=== PATIENT | male | born 1950 | race Caucasian/White ===

== ENCOUNTER 2019-08-25 14:18 | Emergency (ER) | payer MEDICARE, SELFPAY ==
[2019-08-25 14:19] VITALS: BP 141/110; PULSE 89; RESP 17; TEMP 37; O2SAT 94; BMI 18.2
--- NOTE | 2019-08-25 14:34 | CTR_ITS ---
PROCEDURE INFORMATION: Exam: CT Head Without Contrast Exam date and time: 08/25/2019 2:36 PM Age: 69 years old Clinical indication: Other: Possible seizure; Additional info: Possible seizure 1 day ago. TECHNIQUE: Imaging protocol: Computed tomography of the head without contrast. Total DLP: 841.59 mGy-cm Radiation optimization: All CT scans at this facility use at least one of these dose optimization techniques: automated exposure control; mA and/or kV adjustment per patient size (includes targeted exams where dose is matched to clinical indication); or iterative reconstruction. COMPARISON: CT head wo con* [id number] 02/27/2019 8:59 PM FINDINGS: Brain: Stable one or more chronic right lacunar basal ganglia infarcts. Stable chronic right frontal lobe infarct with encephalomalacia. Mild to moderate cerebral atrophy and ischemic leukoencephalopathy. Stable one or more chronic right lacunar basal ganglia infarcts. Ventricles: Normal. No ventriculomegaly. Bones/joints: Unremarkable. No acute fracture. Sinuses: Visualized sinuses are unremarkable. No fluid levels. Mastoid air cells: Visualized mastoid air cells are well aerated. Soft tissues: Unremarkable. Vasculature: Severe calcified intracranial atherosclerotic vessel disease. CT/CT head wo con* [id number] IMPRESSION: No acute intracranial findings. Radiation Dose CTDIVOL = (mGy): DLP = 841.59 (mGy-cm)
--- NOTE | 2019-08-25 14:34 | XRR_ITS ---
PROCEDURE INFORMATION: Exam: XR Chest, 1 View Exam date and time: 08/25/2019 2:36 PM Age: 69 years old Clinical indication: Shortness of breath; Prior surgery; Surgery date: 6+ months; Additional info: Cp TECHNIQUE: Imaging protocol: XR of the chest Views: 1 view. COMPARISON: CR Chest 1 [place] [id number] 02/27/2019 9:00 PM FINDINGS: Tubes, catheters and devices: Stable left pacemaker. Lungs: Stable COPD . Stable right basilar atelectasis and/or infiltrate and/or effusion and/or pleural scarring. Pleural space: Unremarkable. No pleural effusion. No pneumothorax. Heart/Mediastinum: Stable to moderate hiatal hernia. Bones/joints: Stable one or more healed right rib fractures. XR/XR chest 1V portable [id number] IMPRESSION: 1. Stable to moderate hiatal hernia. 2. Stable COPD .
--- NOTE | 2019-08-25 14:35 | ECG_ITS ---
Measurements Intervals [place] Rate: 83 P: 79 AR: 181 QRS: -83 QRSD: 161 T: 72 QT: 442 QTc: 521 ELECTRONIC VENTRICULAR PACEMAKER-a sensed V paced rhythm ABNORMAL RHYTHM ECG Compared to ECG 02/27/2019 21:18:59 No significant changes Electronically Signed On 08-25-2019 16:25:14 CHAIR INSPECTOR AND LEVELER by Torri Mcnair M.D. [id number]
--- NOTE | 2019-08-25 14:50 | ED_ITS ---
Entered by Christy Arceo, acting as scribe for Esha Heath MD Aug 25, 2019 14:18 HPI - Seizure General: Chief Complaint: Seizure Stated Complaint: WEAKNESS, THINKS HAD SEIZURE LAST NIGHT Time Seen by Provider: 08/25/19 14:34 Source: patient and family Mode of arrival: ambulatory Limitations: no limitations History of Present Illness: HPI Narrative: 69 yo male presents to ED with complaints of a possible seizure. The patient said he thinks he had a seizure last night and has no strength. He said he was in his recliner and he began shaking and jerking. He said he doesn't feel too bad. He said he has a headache when he coughs and is weak. He said the last time he had a seizure was years ago. His PCP is Dr Park. complaint: possible seizure Onset (ago): day(s) (last night) Description of Episode: tonic-clonic movement Witnessed: No Trauma: No Seizure History: No (1 years ago) Place: Home Possible Precipitating Event: none Associated symptoms: Reports weakness and other (headache); Deny chest pain, chills or fever(s) Treatments prior to arrival: none Review of Systems Const: Denies: fever, chills, body aches or change in appetite Eyes: Denies: blurry vision or eye discomfort ENMT: Denies: throat pain or dental pain Card: Denies: chest pain Resp: Denies: shortness of breath GI: Denies: abdominal pain, nausea, vomiting or diarrhea : Denies: painful urination Musc: Denies: neck pain or back pain Skin/Breast: Denies: rash Psych: Denies: depression Rubin/Lymph: Denies: easy bruising All/Imm: Denies: hives PFSH ED PFSH: Statuses (acute, chronic, etc) shown below reflect problem list status as previously entered and may not be historically accurate Social History Smoking and tobacco status: current every day smoker Physical Exam Const: COMMON NORMALS: no apparent distress, oriented x3 and healthy appearing HENMT: COMMON NORMALS: normocephalic and head/scalp atraumatic HEAD & SCALP: normocephalic and atraumatic Eye: COMMON NORMALS: PERRL and EOMs intact bilaterally PUPIL: Yes PERRL Neck/C-Spine: COMMON NORMALS: full ROM and supple Chest: COMMONS NORMALS: inspection of chest normal and palpation of chest normal Resp: COMMON NORMALS: normal respiratory effort, no retractions, no use of accessory muscles and clear to auscultation bilaterally AUSCULTATION: clear to auscultation bilaterally Cardio: COMMON NORMALS: regular rate, regular rhythm and no murmurs RATE: regular rate RHYTHM: regular rhythm GI: COMMON NORMALS: normal to inspection, nondistended, normoactive bowel sounds, soft to palpation, non-tender and no masses PALPATION: Yes soft Extremity: COMMON NORMALS: normal to inspection and full ROM Neuro: COMMON NORMALS: oriented x3, moves all extremities and no focal motor deficits Psych: COMMON NORMALS: mental status grossly normal, thought process normal and cooperative THOUGHT PROCESS: normal thought process Skin: COMMON NORMALS: no rashes or lesions noted and no wounds GENERAL SKIN EXAM: no rashes or lesions noted Course Vital Signs: Vital signs: Vital Signs Temperature 98.6 F 08/25/19 14:19 Pulse Rate 75 08/25/19 16:03 Respiratory Rate 16 08/25/19 16:03 Blood Pressure 129/79 08/25/19 16:03 Pulse Oximetry 98 08/25/19 16:03 MDM - Seizure MDM Narrative: Medical decision making narrative: Patient presents here with a possible seizure. Patient is well-appearing here and has no postictal symptoms or headache. Patient has no signs of meningitis. Head CT and lab work are all normal. Patient is stable for discharge and is to follow-up with Dr. Park this week. He is return if worsening. Lab Data: Labs: Lab Results 08/25/19 08/25/19 08/25/19 Range/Units 14:50 14:50 14:50 WBC 6.8 (4.0-10.0) 10^3/ uL RBC 5.27 (4.1-5.3) 10^6/u L Hgb 13.5 (11.7-16.6) g/dL Hct 44.0 (42.0-52.0) % MCV 83.5 (80-94) fL MCH 25.6 L (28.0-34.0) pg MCHC 30.7 (30.0-36.0) g/dL RDW 16.3 H (12.1-15.1) % Plt Count 202 (130-400) 10^3/c mm MPV 10.6 H (7.4-10.4) fL Neut % (Auto) 68.2 % Lymph % (Auto) 17.1 % [place] % (Auto) 12.4 % Eos % (Auto) 1.0 % Baso % (Auto) 0.7 % Neut # (Auto) 4.6 (1.8-7.7) 10^3/u L Lymph # (Auto) 1.2 (0.8-4.8) 10^3/u L [place] # (Auto) 0.8 (0.2-0.9) 10^3/u L Eos # (Auto) 0.1 (0.0-0.8) 10^3/u L Baso # (Auto) 0.1 (0.0-0.1) 10^3/u L Nucleated RBC % (a uto) 0 % Nucleated RBCs # 0.0 /100WBC PT 13.60 H (10.5-13.3) SECO NDS INR 1.00 (0.8-1.2) Sodium 131 L (136-145) mmol/L Potassium 4.7 (3.5-5.1) mmol/L Chloride 93 L (98-107) mmol/L Carbon Dioxide 26 (22-29) mmol/L Anion Gap 16.7 (5-19) BUN 12 (8-23) mg/dL Creatinine 1.0 (0.7-1.2) mg/dL GFR Calculation 74.3 L (90-130) mL/min Glucose 98 (74-106) mg/dL Calcium 9.7 (8.5-10.5) mg/dL Magnesium 2.1 (1.7-2.3) mg/dL Total Bilirubin 0.5 (0.15-1.2) mg/dL AST 54 H (0-40) U/L ALT 20 (0-41) U/L Alkaline Phosphata se 100 (40-130) IU/L Total Protein 7.7 (6.6-8.7) g/dL Albumin 4.2 (3.5-5.2) g/dL Globulin 3.5 (1.3-4.6) g/dL Urine Color (Yellow) Urine Appearance (CLEAR) Urine pH (5-7) Ur Specific Gravit y (1.005-1.030) Urine Protein (Negative) Urine Glucose (UA) (Normal) Urine Ketones (Negative) Urine Occult Blood (Negative) Urine Nitrate (Negative) Urine Bilirubin (NEGATIVE) Urine Urobilinogen (Negative) mg/dL Ur Leukocyte Anu ase (Negative) 08/25/19 Range/Units 15:00 WBC (4.0-10.0) 10^3/ uL RBC (4.1-5.3) 10^6/u L Hgb (11.7-16.6) g/dL Hct (42.0-52.0) % MCV (80-94) fL MCH (28.0-34.0) pg MCHC (30.0-36.0) g/dL RDW (12.1-15.1) % Plt Count (130-400) 10^3/c mm MPV (7.4-10.4) fL Neut % (Auto) % Lymph % (Auto) % [place] % (Auto) % Eos % (Auto) % Baso % (Auto) % Neut # (Auto) (1.8-7.7) 10^3/u L Lymph # (Auto) (0.8-4.8) 10^3/u L [place] # (Auto) (0.2-0.9) 10^3/u L Eos # (Auto) (0.0-0.8) 10^3/u L Baso # (Auto) (0.0-0.1) 10^3/u L Nucleated RBC % (a uto) % Nucleated RBCs # /100WBC PT (10.5-13.3) SECO NDS INR (0.8-1.2) Sodium (136-145) mmol/L Potassium (3.5-5.1) mmol/L Chloride (98-107) mmol/L Carbon Dioxide (22-29) mmol/L Anion Gap (5-19) BUN (8-23) mg/dL Creatinine (0.7-1.2) mg/dL GFR Calculation (90-130) mL/min Glucose (74-106) mg/dL Calcium (8.5-10.5) mg/dL Magnesium (1.7-2.3) mg/dL Total Bilirubin (0.15-1.2) mg/dL AST (0-40) U/L ALT (0-41) U/L Alkaline Phosphata se (40-130) IU/L Total Protein (6.6-8.7) g/dL Albumin (3.5-5.2) g/dL Globulin (1.3-4.6) g/dL Urine Color Straw (Yellow) Urine Appearance Clear (CLEAR) Urine pH 5 (5-7) Ur Specific Gravit y 1.005 (1.005-1.030) Urine Protein Neg (Negative) Urine Glucose (UA) Norm (Normal) Urine Ketones Negative (Negative) Urine Occult Blood Neg (Negative) Urine Nitrate Negative (Negative) Urine Bilirubin Neg (NEGATIVE) Urine Urobilinogen Norm (Negative) mg/dL Ur Leukocyte Anu ase Negative (Negative) Imaging Data^: CT Head: Radiologist's impression: Patient: Rashid Esposito Unit #: [id number] : 1950 Age/Sex: 69 / M ADM Date: 0 08/25/19 Loc: ER Room/Bed: Attending Dr: Ordering Provider/Ordering MD: Esha Heath MD Date of Service: 08/25/19 Procedure(s): CT head wo con* [id number] Accession Number(s): [id number] Report Number: [id number] PROCEDURE INFORMATION: Exam: CT Head Without Contrast Exam date and time: 08/25/2019 2:36 PM Age: 69 years old Clinical indication: Other: Possible seizure; Additional info: Possible seizure 1 day ago. TECHNIQUE: Imaging protocol: Computed tomography of the head without contrast. Total DLP: 841.59 mGy-cm Radiation optimization: All CT scans at this facility use at least one of these dose optimization techniques: automated exposure control; mA and/or kV adjustment per patient size (includes targeted exams where dose is matched to clinical indication); or iterative reconstruction. COMPARISON: CT head wo con* [id number] 02/27/2019 8:59 PM FINDINGS: Brain: Stable one or more chronic right lacunar basal ganglia infarcts. Stable chronic right frontal lobe infarct with encephalomalacia. Mild to moderate cerebral atrophy and ischemic leukoencephalopathy. Stable one or more chronic right lacunar basal ganglia infarcts. Ventricles: Normal. No ventriculomegaly. Bones/joints: Unremarkable. No acute fracture. Sinuses: Visualized sinuses are unremarkable. No fluid levels. Mastoid air cells: Visualized mastoid air cells are well aerated. Soft tissues: Unremarkable. Vasculature: Severe calcified intracranial atherosclerotic vessel disease. CT/CT head wo con* [id number] IMPRESSION: No acute intracranial findings. EKG Data^: EKG 1: Attestation: I personally reviewed and interpreted this EKG as follows: EKG interpretation date: 08/25/19 EKG interpretation time: 14:44 Interpretation: paced hr [address] or t wave abnormalities Discharge Plan Discharge Patient Disposition: Home, Self-Care Clinical Impression: New onset seizure Condition: Stable Discharge Orders: Discharge Order (Routine); Ordered 08/25/19 Ordered By: Esha Heath Referrals: Manolo Park MD [Primary Care Provider] - 4-7 days Discharge Diet: Advance as tolerated Discharge Activity: Resume usual activity Patient Instructions: New-Onset Seizure in Adults (ED) Discharge Date/Time: 08/25/19 16:03 Coding Level of Care Code ED Breakfast Manager for Chg Fwd The documentation recorded by the Adis santos Valerie R, accurately reflects the service I personally performed and the decisions made by Ivana garza Korby, MD Aug 25, 2019 14:18
[2019-08-25 15:02] LABS: Basophils # 0.1 10^3/uL (0.0-0.1); Basophils % 0.7 %; Eosinophils # 0.1 10^3/uL (0.0-0.8); Hemoglobin 13.5 g/dL (11.7-16.6); Lymphocytes # 1.2 10^3/uL (0.8-4.8); Lymphocytes % 17.1 %; Mean Corpuscular HGB Conc 30.7 g/dL (30.0-36.0); Mean Corpuscular Hemoglobin 25.6 pg (28.0-34.0); Mean Corpuscular Volume 83.5 fL (80-94); Mean Platelet Volume 10.6 fL (7.4-10.4); Monocytes # 0.8 10^3/uL (0.2-0.9); Monocytes % 12.4 %; Neutrophils # 4.6 10^3/uL (1.8-7.7); Neutrophils % 68.2 %; Nucleated Red Blood Cells % 0 %; Platelet Count 202 10^3/cmm (130-400); Red Blood Count 5.27 10^6/uL (4.1-5.3); Red Cell Distribution Width 16.3 % (12.1-15.1); White Blood Count 6.8 10^3/uL (4.0-10.0)
[2019-08-25 15:20] LABS: Alanine Aminotransferase 20 U/L (0-41); Albumin Level 4.2 g/dL (3.5-5.2); Alkaline Phosphatase 100 IU/L (40-130); Anion Gap 16.7 (5-19); Blood Urea Nitrogen 12 mg/dL (8-23); Calcium 9.7 mg/dL (8.5-10.5); Carbon Dioxide 26 mmol/L (22-29); Chloride 93 mmol/L (98-107); Globulin 3.5 g/dL (1.3-4.6); Glomerular Filtration Rate 74.3 mL/min (90-130); Glucose 98 mg/dL (74-106); Magnesium 2.1 mg/dL (1.7-2.3); Potassium 4.7 mmol/L (3.5-5.1); Sodium 131 mmol/L (136-145); Total Bilirubin 0.5 mg/dL (0.15-1.2); Total Protein 7.7 g/dL (6.6-8.7)
[2019-08-25 15:22] LABS: Add Urine Microscopic? NO
--- NOTE | 2019-08-25 15:29 | PC.NURSE ---
Patient to CT via stretcher
[2019-08-25 15:31] LABS: Bilirubin Urine Neg (NEGATIVE); Blood Urine Neg (Negative); Glucose Urine UA Norm (Normal); Ketones Urine Negative (Negative); Leukocyte Esterase Urine Negative (Negative); Nitrate Urine Negative (Negative); Protein Urine Neg (Negative); Specific Gravity, Urine 1.005 (1.005-1.030); Urine Appearance Clear (CLEAR); Urine Color Straw (Yellow); Urobilinogen Urine Norm (Negative); pH Urine 5 (5-7)
[2019-08-25 15:36] LABS: Aspartate Amino Transferase 54 U/L (0-40)
--- NOTE | 2019-08-25 15:36 | PC.NURSE ---
Patient back to room from CT
[2019-08-25 15:42] VITALS: BP 129/79; PULSE 88; O2SAT 98
[2019-08-25 16:03] VITALS: BP 129/79; PULSE 75; RESP 16; O2SAT 98
== END 2019-08-25 16:03 | disposition home or self-care (01) ==
PROVIDERS: Emergency Provider Emergency Medicine; Family Provider Family Medicine; PCP Family Medicine
DX: G40.89 Other seizures (principal); F17.210 Nicotine dependence, cigarettes, uncomplicated
CPT/HCPCS: 70450; 71045; 80053; 81003; 83735; 85025; 85610; 93005; 99283; 99284

== ENCOUNTER 2020-01-24 09:35 | Emergency (ER) | payer MEDICARE, SELFPAY ==
[2020-01-24 09:44] VITALS: BP 91/70; PULSE 96; RESP 13; TEMP 36.7; O2SAT 92
--- NOTE | 2020-01-24 09:51 | ED_ITS ---
HPI - Weakness General: Chief complaint: Weakness Stated complaint: weakness, multiple falls Time Seen by Provider: 01/24/20 09:35 History of Present Illness: HPI Narrative: Patient arrives via EMS. He has had several falls in the last few days. Patient has multiple skin tears of varying ages to both upper extremities. Frozen patient called EMS this morning when they came to check on him and found that he was not able to ambulate under his own power whatsoever. Review of Systems General: Reports: 10 or more systems reviewed and unremarkable except in HPI and below PFSH ED PFSH: Social History Smoking and tobacco status: current every day smoker Physical Exam Const: COMMON NORMALS: no acute distress, healthy appearing and well nourished GENERAL APPEARANCE: cooperative and well developed HENMT: COMMON NORMALS: normocephalic and atraumatic HEAD & SCALP: normal to inspection, normocephalic and atraumatic Eye: GENERAL EYE: appearance normal, both eyes and all related structures Neck/C-Spine: COMMON NORMALS: full ROM, no lymphadenopathy and no meningeal signs GENERAL: Yes normal visual inspection CERVICAL SPINE: Yes cervical ROM normal and Yes normal cervical lordosis Chest: COMMONS NORMALS: normal inspection of the chest and normal palpation of entire chest wall Resp: COMMON NORMALS: normal respiratory effort, clear to auscultation bilaterally and percussion normal AUSCULTATION: clear to auscultation bilaterally PERCUSSION: percussion normal Cardio: COMMON NORMALS: regular rate, regular rhythm, S1 normal heart sound present and S2 normal heart sound present JUGULAR VENOUS DISTENTION: no JVD PALPATION: normal PMI RATE: regular rate RHYTHM: regular rhythm HEART SOUNDS: S1 normal heart sound present and S2 normal heart sound present GI: COMMON NORMALS: Soft to palpation and No hepatosplenomegaly present INSPECTION: Yes normal to inspection PALPATION: Yes Soft to palpation and Yes No hepatosplenomegaly present PERCUSSION: normal to percussion : COMMON NORMALS: Yes no CVA tenderness BLADDER/KIDNEY EXAM: Yes no CVA tenderness Back/Pelvis: COMMON NORMALS: no CVA tenderness, thoracic and lumbar spine normal to inspection and thoraco-lumbar ROM normal Extremity: COMMON NORMALS: normal to inspection, full ROM and capillary refill normal Neuro: MENINGEAL SIGNS: Yes no meningeal signs Skin: COMMON NORMALS: no rashes or lesions noted, no wounds and turgor normal GENERAL SKIN EXAM: no rashes or lesions noted, elasticity normal and turgor normal LESIONS: no lesions RASHES: no rashes TRAUMA: no lacerations or abrasions HAIR: normal NAILS: normal Course Vital Signs: Vital signs: Vital Signs Temperature 98.0 F 01/24/20 09:44 Pulse Rate 96 01/24/20 11:09 Respiratory Rate 16 01/24/20 11:09 Blood Pressure 102/66 01/24/20 11:09 Pulse Oximetry 93 01/24/20 10:01 MDM - Weakness MDM Narrative: Medical decision making narrative: Patient is awake and alert and in no acute distress. He states that for the past 5 or 6 months when he tr ies to ambulate his legs feel weak. Patient does admit to drinking one sixpack of beer and 1 pint of liquor a day. Patient's leg weakness could very well be linked to cerebellar atrophy. Patient has no desire to be admitted to the hospital for these symptoms. He will be discharge from emergency department and instructed to follow-up with his PCP. Lab Data: Labs: Lab Results 01/24/20 01/24/20 01/24/20 Range/Units 09:10 09:10 09:10 WBC 9.9 (4.0-10.0) 10^3/ uL RBC 4.91 (4.1-5.3) 10^6/u L Hgb 12.2 (11.7-16.6) g/dL Hct 40.4 L (42.0-52.0) % MCV 82.3 (80-94) fL MCH 24.8 L (28.0-34.0) pg MCHC 30.2 (30.0-36.0) g/dL RDW 16.1 H (12.1-15.1) % Plt Count 173 (130-400) 10^3/c mm MPV 11.9 H (7.4-10.4) fL Neut % (Auto) 83.0 % Lymph % (Auto) 5.8 % [place] % (Auto) 10.3 % Eos % (Auto) 0.2 % Baso % (Auto) 0.2 % Neut # (Auto) 8.2 H (1.8-7.7) 10^3/u L Lymph # (Auto) 0.6 L (0.8-4.8) 10^3/u L [place] # (Auto) 1.0 H (0.2-0.9) 10^3/u L Eos # (Auto) 0.0 (0.0-0.8) 10^3/u L Baso # (Auto) 0.0 (0.0-0.1) 10^3/u L Nucleated RBC % (a uto) 0 % Nucleated RBCs # 0.0 /100WBC Sodium 127 L (136-145) mmol/L Potassium 5.0 (3.5-5.1) mmol/L Chloride 88 L (98-107) mmol/L Carbon Dioxide 22 (22-29) mmol/L Anion Gap 22.0 H (5-19) BUN 25 H (8-23) mg/dL Creatinine 1.2 (0.7-1.2) mg/dL GFR Calculation 60.2 L (90-130) mL/min Glucose 74 (65-115) mg/dL Calculated Osmolal ity 259 L (285-295) mOsm/k g Lactate (0.5-2.2) mmol/L Calcium 9.4 (8.5-10.5) mg/dL Phosphorus 3.2 (2.5-4.5) mg/dL Magnesium 2.0 (1.7-2.3) mg/dL Total Bilirubin 1.1 (0.15-1.2) mg/dL AST 79 H (0-40) U/L ALT 31 (0-41) U/L Alkaline Phosphata se 99 (40-130) IU/L Ammonia (16-60) umol/L Troponin T Baselin e 36 H (0-15) ng/L Troponin T 120 Min [place] (0-15) ng/L Delta Troponin T (0-10) ABS# NT-Pro-B Natriuret Pep 7887 H (0-125) pg/mL Total Protein 6.5 L (6.6-8.7) g/dL Albumin 3.8 (3.5-5.2) g/dL Globulin 2.7 (1.3-4.6) g/dL Lipase 8 L (13-60) U/L Urine Color (Yellow) Urine Appearance (CLEAR) Urine pH (5-7) Ur Specific Gravit y (1.005-1.030) Urine Protein (Negative) Urine Glucose (UA) (Normal) Urine Ketones (Negative) Urine Blood (Negative) Urine Nitrate (Negative) Urine Bilirubin (NEGATIVE) Urine Urobilinogen (Negative) mg/dL Ur Leukocyte Anu ase (Negative) Ethyl Alcohol < 10 (0-10) mg/dL 01/24/20 01/24/20 01/24/20 Range/Units 11:07 11:07 11:11 WBC (4.0-10.0) 10^3/ uL RBC (4.1-5.3) 10^6/u L Hgb (11.7-16.6) g/dL Hct (42.0-52.0) % MCV (80-94) fL MCH (28.0-34.0) pg MCHC (30.0-36.0) g/dL RDW (12.1-15.1) % Plt Count (130-400) 10^3/c mm MPV (7.4-10.4) fL Neut % (Auto) % Lymph % (Auto) % [place] % (Auto) % Eos % (Auto) % Baso % (Auto) % Neut # (Auto) (1.8-7.7) 10^3/u L Lymph # (Auto) (0.8-4.8) 10^3/u L [place] # (Auto) (0.2-0.9) 10^3/u L Eos # (Auto) (0.0-0.8) 10^3/u L Baso # (Auto) (0.0-0.1) 10^3/u L Nucleated RBC % (a uto) % Nucleated RBCs # /100WBC Sodium (136-145) mmol/L Potassium (3.5-5.1) mmol/L Chloride (98-107) mmol/L Carbon Dioxide (22-29) mmol/L Anion Gap (5-19) BUN (8-23) mg/dL Creatinine (0.7-1.2) mg/dL GFR Calculation (90-130) mL/min Glucose (65-115) mg/dL Calculated Osmolal ity (285-295) mOsm/k g Lactate 1.2 (0.5-2.2) mmol/L Calcium (8.5-10.5) mg/dL Phosphorus (2.5-4.5) mg/dL Magnesium (1.7-2.3) mg/dL Total Bilirubin (0.15-1.2) mg/dL AST (0-40) U/L ALT (0-41) U/L Alkaline Phosphata se (40-130) IU/L Ammonia 14 L (16-60) umol/L Troponin T Baselin e (0-15) ng/L Troponin T 120 Min [place] 36.16 H (0-15) ng/L Delta Troponin T 0.16 (0-10) ABS# NT-Pro-B Natriuret Pep (0-125) pg/mL Total Protein (6.6-8.7) g/dL Albumin (3.5-5.2) g/dL Globulin (1.3-4.6) g/dL Lipase (13-60) U/L Urine Color (Yellow) Urine Appearance (CLEAR) Urine pH (5-7) Ur Specific Gravit y (1.005-1.030) Urine Protein (Negative) Urine Glucose (UA) (Normal) Urine Ketones (Negative) Urine Blood (Negative) Urine Nitrate (Negative) Urine Bilirubin (NEGATIVE) Urine Urobilinogen (Negative) mg/dL Ur Leukocyte Anu ase (Negative) Ethyl Alcohol (0-10) mg/dL 01/24/20 Range/Units 12:24 WBC (4.0-10.0) 10^3/ uL RBC (4.1-5.3) 10^6/u L Hgb (11.7-16.6) g/dL Hct (42.0-52.0) % MCV (80-94) fL MCH (28.0-34.0) pg MCHC (30.0-36.0) g/dL RDW (12.1-15.1) % Plt Count (130-400) 10^3/c mm MPV (7.4-10.4) fL Neut % (Auto) % Lymph % (Auto) % [place] % (Auto) % Eos % (Auto) % Baso % (Auto) % Neut # (Auto) (1.8-7.7) 10^3/u L Lymph # (Auto) (0.8-4.8) 10^3/u L [place] # (Auto) (0.2-0.9) 10^3/u L Eos # (Auto) (0.0-0.8) 10^3/u L Baso # (Auto) (0.0-0.1) 10^3/u L Nucleated RBC % (a uto) % Nucleated RBCs # /100WBC Sodium (136-145) mmol/L Potassium (3.5-5.1) mmol/L Chloride (98-107) mmol/L Carbon Dioxide (22-29) mmol/L Anion Gap (5-19) BUN (8-23) mg/dL Creatinine (0.7-1.2) mg/dL GFR Calculation (90-130) mL/min Glucose (65-115) mg/dL Calculated Osmolal ity (285-295) mOsm/k g Lactate (0.5-2.2) mmol/L Calcium (8.5-10.5) mg/dL Phosphorus (2.5-4.5) mg/dL Magnesium (1.7-2.3) mg/dL Total Bilirubin (0.15-1.2) mg/dL AST (0-40) U/L ALT (0-41) U/L Alkaline Phosphata se (40-130) IU/L Ammonia (16-60) umol/L Troponin T Baselin e (0-15) ng/L Troponin T 120 Min [place] (0-15) ng/L Delta Troponin T (0-10) ABS# NT-Pro-B Natriuret Pep (0-125) pg/mL Total Protein (6.6-8.7) g/dL Albumin (3.5-5.2) g/dL Globulin (1.3-4.6) g/dL Lipase (13-60) U/L Urine Color Yellow (Yellow) Urine Appearance Clear (CLEAR) Urine pH 5 (5-7) Ur Specific Gravit y 1.020 (1.005-1.030) Urine Protein Neg (Negative) Urine Glucose (UA) Norm (Normal) Urine Ketones 1+ H (Negative) Urine Blood Neg (Negative) Urine Nitrate Negative (Negative) Urine Bilirubin 1+ H (NEGATIVE) Urine Urobilinogen 4 H (Negative) mg/dL Ur Leukocyte Anu ase Negative (Negative) Ethyl Alcohol (0-10) mg/dL Discharge Plan Discharge Patient Disposition: Home, Self-Care Clinical Impression: Weakness generalized Condition: Stable Prescriptions: No Action No Known Home Medications RF: 0 Discharge Orders: Discharge Order (Routine); Ordered 01/24/20 Ordered By: Torrey Ferguson Referrals: Manolo Park MD [Primary Care Provider] - Coding Level of Care Code ED Human Development Professor for Chg Fwd Exam Comprehensive
[2020-01-24 10:01] VITALS: O2SAT 93
--- NOTE | 2020-01-24 10:45 | CT_ITS ---
WS: [id number] CT HEAD TECHNIQUE: Noncontrast CT of the head obtained from the skullbase to the vertex. CLINICAL INFORMATION: yoli bird COMPARISON: August 25, 2019 DLP: 1334.[address] scans at [facility] use at least one of these dose optimization techniques: automat ed exposure control; mA and/or kV adjustment per patient size (includes targeted exams where dose is matched to clinical indication); or iterative reconstruction. FINDINGS: No evidence of intracranial hemorrhage or mass effect. Ventricular system and basal cisterns are luque nt. Mild small vessel changes with moderate parenchymal volume loss. Chronic lacunar infarcts in the bilateral caudate and bilateral cerebellum. Low-attenuation change with chronic infarct in the right posterior frontal lobe. No extra-axial fluid collections. No evidence of mass or mass effect. Normal subramanian-white differentiati on. Paranasal sinuses and mastoid air cells are well aerated. .Normal visualized soft tissues. CT/CT head wo con* 39000 IMPRESSION: 1. No evidence of intracranial hemorrhage or mass effect. 2. Mild small vessel changes. Moderate parenchymal volume loss. 3. Chronic lacunar infarcts described above. 4. Chronic infarct in the right posterior frontal lobe unchanged. 5. No acute intracranial findings.
--- NOTE | 2020-01-24 10:45 | XRR_ITS ---
PROCEDURE INFORMATION: Exam: XR Chest, 1 View Exam date and time: 01/24/2020 11:35 AM Age: 69 years old Clinical indication: Prior surgery; Surgery date: 6+ months; Surgery type: Pacemaker; Patient HX: Was found unable to ambulate on own. Weakness TECHNIQUE: Imaging protocol: XR of the chest Views: 1 view. COMPARISON: CR (CHEST, ) 08/25/2019 2:44 PM FINDINGS: Lungs: No pneumonia or pulmonary edema. Pleural space: No pleural effusion or pneumothorax. Heart/Mediastinum: Moderate size hiatal hernia. The heart is not felt to be enlarged when allowing for large left epicardial fat pad. Vasculature: There is a left subclavian dual chamber pacemaker. Bones/joints: No acute osseous abnormality. XR/XR chest 1V portable [id number] IMPRESSION: No acute abnormality.
--- NOTE | 2020-01-24 10:48 | ECG_ITS ---
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 Measurements Intervals Alpha Rate: 100 P: 69 OR: 148 QRS: -74 QRSD: 164 T: 69 QT: 405 QTc: 522 Interpretive Statements A sense V paced rhythm Compared to ECG 08/25/2019 14:44:29 No significant changes Electronically Signed On 01-24-2020 20:48:09 CDT by Mckenna Bal M.D. [id number] f
[2020-01-24 10:55] LABS: Basophils % 0.2 %; Eosinophils % 0.2 %; Hematocrit 40.4 % (42.0-52.0); Hemoglobin 12.2 g/dL (11.7-16.6); Lymphocytes # 0.6 10^3/uL (0.8-4.8); Lymphocytes % 5.8 %; Mean Corpuscular HGB Conc 30.2 g/dL (30.0-36.0); Mean Corpuscular Hemoglobin 24.8 pg (28.0-34.0); Mean Corpuscular Volume 82.3 fL (80-94); Mean Platelet Volume 11.9 fL (7.4-10.4); Monocytes % 10.3 %; Neutrophils # 8.2 10^3/uL (1.8-7.7); Nucleated Red Blood Cells % 0 %; Platelet Count 173 10^3/cmm (130-400); Red Blood Count 4.91 10^6/uL (4.1-5.3); Red Cell Distribution Width 16.1 % (12.1-15.1); White Blood Count 9.9 10^3/uL (4.0-10.0)
[2020-01-24] MEDS: folic acid 1 MG, multivitamin inj 10 ML, thiamine 100 MG in sodium chloride 0.9% 1,000 ML 252.8 MG IV (11:06)
[2020-01-24] MEDS: tetanus-diphtheria tox (adult) 0.5 mL SDV IM (11:06)
[2020-01-24] MEDS: sodium chloride 0.9% 500 ML IV (11:06)
[2020-01-24 11:07] LABS: Troponin(5th) Baseline 36 ng/L (0-15)
[2020-01-24 11:09] VITALS: BP 102/66; PULSE 96; RESP 16
[2020-01-24 11:16] LABS: Alanine Aminotransferase 31 U/L (0-41); Albumin Level 3.8 g/dL (3.5-5.2); Alkaline Phosphatase 99 IU/L (40-130); Aspartate Amino Transferase 79 U/L (0-40); Blood Urea Nitrogen 25 mg/dL (8-23); Calcium 9.4 mg/dL (8.5-10.5); Carbon Dioxide 22 mmol/L (22-29); Chloride 88 mmol/L (98-107); Creatinine Clr Calc Pharmacy 49.1392; Globulin 2.7 g/dL (1.3-4.6); Glomerular Filtration Rate 60.2 mL/min (90-130); Glucose 74 mg/dL (65-115); Lipase 8 U/L (13-60); NT Pro B Type Natriuretic Pept 7887 pg/mL (0-125); Osmolality Calculated 259 mOsm/kg (285-295); Phosphorus 3.2 mg/dL (2.5-4.5); Sodium 127 mmol/L (136-145); Total Bilirubin 1.1 mg/dL (0.15-1.2); Total Protein 6.5 g/dL (6.6-8.7)
[2020-01-24 11:17] LABS: Alcohol Level < 10 mg/dL (0-10)
[2020-01-24 11:42] LABS: Ammonia 14 umol/L (16-60)
[2020-01-24 11:42] LABS: Lactate (Lactic Acid level) 1.2 mmol/L (0.5-2.2)
[2020-01-24 11:45] LABS: Troponin 5 2HR 36.16 ng/L (0-15); Troponin 5 2HR Delta 0.16 ABS# (0-10)
--- NOTE | 2020-01-24 12:35 | PC.NURSE ---
EKG done at 1233 and shown to ER doctor
[2020-01-24 12:47] LABS: Add Urine Microscopic? NO
--- NOTE | 2020-01-24 12:48 | ECG_ITS ---
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 Measurements Intervals [place] Rate: 98 P: 70 W[place]: 136 QRS: -84 QRSD: 172 T: 75 QT: 421 QTc: 539 Interpretive Statements A sense V paced rhythm ABNORMAL RHYTHM ECG Compared to ECG 08/25/2019 14:44:29 No significant changes Electronically Signed On 01-24-2020 20:55:46 CDT by Mckenna Bal M.D. [email or web address]
[2020-01-24 12:59] LABS: Glucose Urine UA Norm (Normal); Protein Urine Neg (Negative); Urine Appearance Clear (CLEAR); Urine Color Yellow (Yellow); pH Urine 5 (5-7)
[2020-01-24 13:00] LABS: Bilirubin Urine 1+ (NEGATIVE); Blood Urine Neg (Negative); Ketones Urine 1+ (Negative); Leukocyte Esterase Urine Negative (Negative); Nitrate Urine Negative (Negative); Urobilinogen Urine 4 mg/dL (Negative)
--- NOTE | 2020-01-24 13:18 | DCPLANNER ---
automobile service station manager was asked to speak with patient about alf placement. automobile service station manager spoke with patient about going to a alf. Patient stated that he wants to go home, he does not want to go to a alf at this time.
[2020-01-24 16:02] VITALS: BP 131/82; PULSE 107; RESP 21
== END 2020-01-24 16:02 | disposition home or self-care (01) ==
PROVIDERS: Emergency Provider Family Medicine; Family Provider Family Medicine; PCP Family Medicine
DX: R53.1 Weakness (principal); F17.210 Nicotine dependence, cigarettes, uncomplicated; Z23 Encounter for immunization
CPT/HCPCS: 12345; 70450; 71045; 80053; 80307; 81003; 82140; 83605; 83690; 83735; 83880; 84100; 84484; 85025; 87040; 90471; 90714; 93005; 96360; 96361; 99283; 99284; J3411; J3490; J7030; J7040

== ENCOUNTER 2020-01-25 09:44 | Inpatient (IN) | payer MEDICARE, SELFPAY ==
[2020-01-25] VITALS (50 sets, daily range): BP systolic 93–120; BP diastolic 54–91; PULSE 94–145; RESP 9–95; TEMP 36.8–37.3; O2SAT 91–100; BMI 20.5
--- NOTE | 2020-01-25 10:22 | ECG_ITS ---
[facility] Test Date: 2020-01-25 Pat Name: Rashid Esposito Department: Room: ICU02 Gender: Male Manager Employee Benefits: : 1950 Requested By: Gerson Salcido Order Number: [id number] Aimee MD: Torri Mcnair M.D. Measurements Intervals [place] Rate: 106 P: 261 [place]: 270 QRS: -89 QRSD: 169 T: 76 QT: 391 QTc: 520 Interpretive Statements ELECTRONIC VENTRICULAR PACEMAKER A sensed, V paced rhythm ABNORMAL RHYTHM ECG Compared to ECG 01/24/2020 12:40:58 No significant changes Electronically Signed On 01-26-2020 13:44:27 CDT by Torri Mcnair M.D. [id number]
--- NOTE | 2020-01-25 10:22 | CT_ITS ---
WS: [id number] CT ABDOMEN AND PELVIS WITH CONTRAST HISTORY: Altered mental status, confusion and abdominal pain. History of renal cancer. TECHNIQUE: Imaging performed of the abdomen and pelvis with IV contrast. Single phase imaging of the abdomen. Coronal and sagittal reformats are submitted. All CT scans at [facility] use at least one of these dose optimization techniques: automated exposure control; mA and/or kV adjustment per patient size (includes targeted exams where dose is matched to clinical indication); or iterativ e reconstruction. IV CONTRAST: Visipaque 320; 95 mL IV. Oral contrast: No DLP: 465.02 mGy.cm COMPARISON: 12/18/2017 Lower thorax: Advanced emphysematous changes at the lung bases. Pleural thickening and scarring at th e medial RIGHT lung base. Moderately enlarged heart. Heavy calcification along the mitral annular lorena ve plane. Intrathoracic stomach. Nearly the entire stomach is intrathoracic in distended with fluid. Similar to the prior study. Liver/biliary system: Normal size liver. Intrahepatic duct dilatation. This duct dilatation has been present since 2014. Common bile duct measures 13 mm and stable since 2018. Gallbladder: Normally distended gallbladder with stones. Pancreas: Normal size pancreas. Common bile duct at the head measures 18 mm and unchanged. Very mild prominence of the pancreatic duct. No pancreatic head mass. Spleen: Normal. Adrenal glands: Normal. Right kidney: Very slight dilatation of the RIGHT renal pelvis and ureter. No renal mass. Left kidney: Surgically removed. No mass or adenopathy in the renal bed. Aorta: Mild atherosclerosis with no aneurysm. Lymphadenopathy: None. Free fluid: None. GI tract: Moderate fecal retention. The appendix is normal. Sigmoid diverticulosis without acute dive rticulitis. Abdominal wall: Unremarkable abdominal wall. No hernia. Pelvis: There is marked dilatation of the urinary bladder. Urinary bladder extends over a length of 1 5 cm and extends to the level of the umbilicus and just above. No intraluminal mass. Bones: L5 anterolisthesis by 11 mm due to pars defects bilaterally. CT/CT abdomen pelvis w con* [id number] IMPRESSION: 1. Markedly enlarged urinary bladder extending above the umbilicus. Recommend Alfonso catheter insertion. 2. Mild dilatation of the RIGHT renal pelvis and ureter is probably due to the distended urinary bladder and will improve after catheterization. 3. Prior LEFT nephrectomy. 4. Intrathoracic stomach, similar to 12/18/2017. 5. Long-term stability intrahepatic and extrahepatic duct dilatation with the common bile duct at 13 mm. 6. Cholelithiasis. 7. Chronic emphysema. 8. Sigmoid diverticulosis.
--- NOTE | 2020-01-25 10:22 | CT_ITS ---
WS: [id number] CT HEAD NONCONTRAST HISTORY: AMS TECHNIQUE: Contiguous axial imaging performed through the brain in 2.5 mm imaging. Bone and soft tiss ue windows. Sagittal and coronal reformats reviewed. All CT scans at [facility] use at ast one of these dose optimization techniques: automated exposure control; mA and/or kV adjustment pe r patient size (includes targeted exams where dose is matched to clinical indication); or iterative r econstruction. DLP: 814.27 mGy.cm COMPARISON: 01/24/2020 No acute intracranial hemorrhage, midline shift or mass effect. Moderate atrophy and chronic ischemic disease. Bilateral basal ganglia and caudate head lacunar infar cts. Stable lacunar infarcts in the caudate heads and cerebellum bilaterally. Remote RIGHT posterior frontoparietal and LEFT frontal infarcts with encephalomalacia. No new infarct. Ventricles: Normal size with no hydrocephalus. No inferior displacement of cerebellar tonsils. Paranasal sinuses: As visualized are clear. Mastoid air cells: Well pneumatized. Calvarium and scalp: Skull is intact with no soft tissue edema or swelling. Severe atherosclerosis intracranial carotid arteries. CT/CT head wo con* [id number] IMPRESSION: 1. No acute intracranial hemorrhage or interval change since 01/24/2020. 2. Remote infarcts as described above are unchanged.
--- NOTE | 2020-01-25 10:22 | XR_ITS ---
WS: [id number] PORTABLE CHEST HISTORY: dyspnea/cough COMPARISON: 01/24/2020 LEFT subclavian dual lead pacer. Lungs are hyperinflated with changes of emphysema. Pleural thickening is new along the RIGHT lateral thorax with new blunting of the RIGHT costophrenic angle. Cardiac size: Normal. Mediastinum/Aorta: Mild atherosclerosis aorta. Osteopenia. Incomplete visualization of the lateral RIGHT seventh rib. Rib may have been surgically r emoved. There are additional healed fractures in the posterior RIGHT thorax. XR/XR chest 1V portable [id number] IMPRESSION: 1. New RIGHT pleural thickening and small effusion versus pleural thickening a t the costophrenic angle. 2. Nonvisualization of the lateral RIGHT seventh rib. May have been surgically removed. If there is no history of prior rib resection destructive neoplastic process should be considered. 3. Prior RIGHT fourth and fifth rib fractures with healing. 4. Chronic emphysema.
[2020-01-25 10:30] LABS: Basophils % 0.2 %; Eosinophils % 0.3 %; Hematocrit 38.8 % (42.0-52.0); Hemoglobin 11.6 g/dL (11.7-16.6); Lymphocytes # 0.4 10^3/uL (0.8-4.8); Lymphocytes % 4.7 %; Mean Corpuscular HGB Conc 29.9 g/dL (30.0-36.0); Mean Corpuscular Hemoglobin 24.8 pg (28.0-34.0); Mean Corpuscular Volume 83.1 fL (80-94); Mean Platelet Volume 10.8 fL (7.4-10.4); Monocytes # 1.1 10^3/uL (0.2-0.9); Monocytes % 12.5 %; Neutrophils # 7.4 10^3/uL (1.8-7.7); Neutrophils % 81.9 %; Nucleated Red Blood Cells % 0 %; Platelet Count 143 10^3/cmm (130-400); Red Blood Count 4.67 10^6/uL (4.1-5.3); Red Cell Distribution Width 16.2 % (12.1-15.1); White Blood Count 9.1 10^3/uL (4.0-10.0)
[2020-01-25 10:31] LABS: Ketone (Acetest) Serum Positive (Negative)
[2020-01-25 10:41] LABS: Alanine Aminotransferase 35 U/L (0-41); Albumin Level 3.8 g/dL (3.5-5.2); Alkaline Phosphatase 102 IU/L (40-130); Anion Gap 26.6 (5-19); Aspartate Amino Transferase 71 U/L (0-40); Blood Urea Nitrogen 23 mg/dL (8-23); Calcium 9.4 mg/dL (8.5-10.5); Carbon Dioxide 18 mmol/L (22-29); Chloride 91 mmol/L (98-107); Globulin 2.6 g/dL (1.3-4.6); Glomerular Filtration Rate 74.3 mL/min (90-130); Glucose 85 mg/dL (65-115); Lipase 11 U/L (13-60); Osmolality Calculated 268 mOsm/kg (285-295); Potassium 4.6 mmol/L (3.5-5.1); Sodium 131 mmol/L (136-145); Total Bilirubin 1.2 mg/dL (0.15-1.2); Total Protein 6.4 g/dL (6.6-8.7)
[2020-01-25 10:45] LABS: Troponin(5th) Baseline 50 ng/L (0-15)
--- NOTE | 2020-01-25 10:45 | ED_ITS ---
HPI - Weakness General: Chief complaint: Weakness Stated complaint: GENERALIZED WEAKNESS/ AMS Time Seen by Provider: 01/25/20 09:45 History of Present Illness: HPI Narrative: 69-year-old male comes in with a history of known alcoholism called ahead of time he was here yesterday they were demanding admission to the retirement when he was seen yesterday no significant indication was noted he was discharged home he is brought back in today with a complaint of weakness he is disoriented to time place and person I cannot get any full any meaningful history from him there is no significant past medical or surgical histories in the chart no previous admission he denies fever denies short of breath or not sure how accurate any of his answers really are at this point. He continually talks about a computer that is not his it is in the room he is tachycardic and mildly hypotensive his sats are normal he is also continually going on about a lottery ticket. He thinks he is in the [facility] emergency room he does not know what month day or year upcoming holiday it is. According to the POA he fell a lot. 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 We are making attempts to contact his primary care provider Dr. Park to least get a minimum of an old note to get some of his past medical and surgical histories down. We were able to get an old history from Dr. Thomas's office all the history below was obtained from there MD Complaint: generalized weakness and difficulty walking Onset (ago): day(s) Duration: constant Review of Systems General: Reports: ROS unobtainable due to mental status PFSH ED PFSH: Medical History (Updated 01/25/20 @ 14:55 by Kevin Oates MD) BPH (benign prostatic hyperplasia) COPD (chronic obstructive pulmonary disease) History of basal cell cancer History of renal cell cancer Hypertension Surgical History (Updated 01/25/20 @ 14:48 by Kevin Oates MD) History of nephrectomy, left History of permanent cardiac pacemaker placement Social History (Updated 01/25/20 @ 14:43 by Kevin Oates MD) Smoking and tobacco status: current every day smoker Alcohol intake: current Alcohol intake frequency: 3 or more drinks per day Alcohol type: hard liquor Substance/Drug Use: former Lives independently: No Household members: family Housing: House Physical Exam Const: COMMON NORMALS: no acute distress Eye: COMMON NORMALS: Equal, round and reactive pupils present, EOMs intact bilaterally, conjunctivae normal and no scleral icterus CONJUNCTIVA: Yes conjunctivae normal PUPIL: Yes Equal, round and reactive pupils present Neck/C-Spine: COMMON NORMALS: full ROM, no lymphadenopathy, supple and no JVD Lymph: LYMPHATIC: no lymphadenopathy noted and no lymphedema noted Resp: COMMON NORMALS: normal respiratory effort, No retractions, No use of accessory muscles and clear to auscultation bilaterally AUSCULTATION: clear to auscultation bilaterally Cardio: COMMON NORMALS: no JVD, regular rate, regular rhythm and No murmurs present (Cardio) RATE: regular rate RHYTHM: regular rhythm GI: COMMON NORMALS: Soft to palpation and No hepatosplenomegaly present AUSCULTATION: Yes normoactive bowel sounds PALPATION: Yes Soft to palpation, No Tenderness to palpation present (GI), No Guarding due to palpation present (GI) and Yes No hepatosplenomegaly present Extremity: COMMON NORMALS: normal to inspection, capillary refill normal, no clubbing, cyanosis or edema, no calf tenderness and no pedal edema Skin: COMMON NORMALS: no rashes or lesions noted GENERAL SKIN EXAM: no rashes or lesions noted Course Vital Signs: Vital signs: Vital Signs Temperature 98.4 F 01/25/20 13:52 Pulse Rate 109 H 01/25/20 16:15 Respiratory Rate 18 01/25/20 16:15 Blood Pressure 109/75 01/25/20 16:15 Pulse Oximetry 97 01/25/20 16:15 MDM - Weakness MDM Narrative: Medical decision making narrative: It is possible the patient had a seizure CPK is up he did not really act postictal when he got a he was very vocal this did not make much sense to think he may very well be withdrawing from alcohol but I am not seeing signs of seizure at this point. He is immobile and has fallen quite a bit lately. Discussed Dr. Mina will go ahead and admit him to the [facility] protocol he did have a significant urinary retention but his creatinine is well preserved will need to evaluate that as well. Lab Data: Labs: Lab Results 01/25/20 01/25/20 01/25/20 Range/Units 09:30 09:30 09:30 WBC 9.1 (4.0-10.0) 10^3/ uL RBC 4.67 (4.1-5.3) 10^6/u L Hgb 11.6 L (11.7-16.6) g/dL Hct 38.8 L (42.0-52.0) % MCV 83.1 (80-94) fL MCH 24.8 L (28.0-34.0) pg MCHC 29.9 L (30.0-36.0) g/dL RDW 16.2 H (12.1-15.1) % Plt Count 143 (130-400) 10^3/c mm MPV 10.8 H (7.4-10.4) fL Neut % (Auto) 81.9 % Lymph % (Auto) 4.7 % [place] % (Auto) 12.5 % Eos % (Auto) 0.3 % Baso % (Auto) 0.2 % Neut # (Auto) 7.4 (1.8-7.7) 10^3/u L Lymph # (Auto) 0.4 L (0.8-4.8) 10^3/u L [place] # (Auto) 1.1 H (0.2-0.9) 10^3/u L Eos # (Auto) 0.0 (0.0-0.8) 10^3/u L Baso # (Auto) 0.0 (0.0-0.1) 10^3/u L Nucleated RBC % (a uto) 0 % Nucleated RBCs # 0.0 /100WBC PT (10.5-13.3) SECO NDS INR (0.8-1.2) APTT (23.9-36.7) SECO NDS Specimen Type Sample Site ABG pH (7.35-7.45) ABG pCO2 (35-45) mmHg ABG pO2 (80.0-100.0) mmH g ABG HCO3 (22-26) mmol/L ABG O2 Saturation ABG Base Excess (-2.0-2.0) mmol/ L Erick Test A-a O2 Gradient (5-10) mmHg Hematocrit (42-52) % Hgb O2 Saturation (95-100) % Carboxyhemoglobin (0.4-20.1) %THgb Methemoglobin (0.4-1.5) % Total Hemoglobin (14-18) g/dL Ionized Calcium (1.1-1.4) mmol/L O2 Delivery Device Land Degradation Analyst ID Sodium 131 L (136-145) mmol/L Potassium 4.6 (3.5-5.1) mmol/L Chloride 91 L (98-107) mmol/L Carbon Dioxide 18 L (22-29) mmol/L Anion Gap 26.6 H (5-19) BUN 23 (8-23) mg/dL Creatinine 1.0 (0.7-1.2) mg/dL GFR Calculation 74.3 L (90-130) mL/min Glucose 85 (65-115) mg/dL Calculated Osmolal ity 268 L (285-295) mOsm/k g Lactate (0.5-2.2) mmol/L Calcium 9.4 (8.5-10.5) mg/dL Iron (59-158) ug/dL TIBC mcg/dl % Saturation (20-50) % Unsat Iron Binding (112-347) ug/dL Total Bilirubin 1.2 (0.15-1.2) mg/dL AST 71 H (0-40) U/L ALT 35 (0-41) U/L Alkaline Phosphata se 102 (40-130) IU/L Creatine Kinase 651 H* (39-308) U/L Troponin T Baselin e (0-15) ng/L Troponin T 120 Min [place] (0-15) ng/L Delta Troponin T (0-10) ABS# NT-Pro-B Natriuret Pep (0-125) pg/mL Total Protein 6.4 L (6.6-8.7) g/dL Albumin 3.8 (3.5-5.2) g/dL Globulin 2.6 (1.3-4.6) g/dL Lipase 11 L (13-60) U/L Procalcitonin (0-0.5) ng/mL TSH (0.27-4.20) uIU/ mL Urine Color (Yellow) Urine Appearance (CLEAR) Urine pH (5-7) Ur Specific Gravit y (1.005-1.030) Urine Protein (Negative) Urine Glucose (UA) (Normal) Urine Ketones (Negative) Urine Blood (Negative) Urine Nitrate (Negative) Urine Bilirubin (NEGATIVE) Urine Urobilinogen (Negative) mg/dL Ur Leukocyte Anu ase (Negative) Urine RBC (0-2) /hpf Urine WBC (0-5) /hpf Ur Squamous Epith Cells (0-5) Amorphous Sediment Urine Bacteria (NONE) Hyaline Casts Ur Random Sodium mmol/L Ur Random Potassiu m mmol/L Ur Random Chloride mmol/L Urine Opiates Scre en (Negative) ng/mL Ur Barbiturates Sc reen (Negative) ng/mL Ur Phencyclidine S crn (Negative) ng/mL Ur Amphetamines Sc reen (Negative) ng/mL U Benzodiazepines Scrn (Negative) ng/mL Urine Cocaine Scre en (Negative) ng/mL U Marijuana (THC) Screen (Negative) ng/mL Ethyl Alcohol < 10 (0-10) mg/dL Serum Ketones Positive H (Negative) 01/25/20 01/25/20 01/25/20 Range/Units 09:30 09:30 09:30 WBC (4.0-10.0) 10^3/ uL RBC (4.1-5.3) 10^6/u L Hgb (11.7-16.6) g/dL Hct (42.0-52.0) % MCV (80-94) fL MCH (28.0-34.0) pg MCHC (30.0-36.0) g/dL RDW (12.1-15.1) % Plt Count (130-400) 10^3/c mm MPV (7.4-10.4) fL Neut % (Auto) % Lymph % (Auto) % [place] % (Auto) % Eos % (Auto) % Baso % (Auto) % Neut # (Auto) (1.8-7.7) 10^3/u L Lymph # (Auto) (0.8-4.8) 10^3/u L [place] # (Auto) (0.2-0.9) 10^3/u L Eos # (Auto) (0.0-0.8) 10^3/u L Baso # (Auto) (0.0-0.1) 10^3/u L Nucleated RBC % (a uto) % Nucleated RBCs # /100WBC PT (10.5-13.3) SECO NDS INR (0.8-1.2) APTT (23.9-36.7) SECO NDS Specimen Type Sample Site ABG pH (7.35-7.45) ABG pCO2 (35-45) mmHg ABG pO2 (80.0-100.0) mmH g ABG HCO3 (22-26) mmol/L ABG O2 Saturation ABG Base Excess (-2.0-2.0) mmol/ L Erick Test A-a O2 Gradient (5-10) mmHg Hematocrit (42-52) % Hgb O2 Saturation (95-100) % Carboxyhemoglobin (0.4-20.1) %THgb Methemoglobin (0.4-1.5) % Total Hemoglobin (14-18) g/dL Ionized Calcium (1.1-1.4) mmol/L O2 Delivery Device Land Degradation Analyst ID Sodium (136-145) mmol/L Potassium (3.5-5.1) mmol/L Chloride (98-107) mmol/L Carbon Dioxide (22-29) mmol/L Anion Gap (5-19) BUN (8-23) mg/dL Creatinine (0.7-1.2) mg/dL GFR Calculation (90-130) mL/min Glucose (65-115) mg/dL Calculated Osmolal ity (285-295) mOsm/k g Lactate (0.5-2.2) mmol/L Calcium (8.5-10.5) mg/dL Iron 15 L (59-158) ug/dL TIBC 264 mcg/dl % Saturation 5.6 L (20-50) % Unsat Iron Binding 249 (112-347) ug/dL Total Bilirubin (0.15-1.2) mg/dL AST (0-40) U/L ALT (0-41) U/L Alkaline Phosphata se (40-130) IU/L Creatine Kinase (39-308) U/L Troponin T Baselin e 50 H (0-15) ng/L Troponin T 120 Min [place] (0-15) ng/L Delta Troponin T (0-10) ABS# NT-Pro-B Natriuret Pep [id number] H (0-125) pg/mL Total Protein (6.6-8.7) g/dL Albumin (3.5-5.2) g/dL Globulin (1.3-4.6) g/dL Lipase (13-60) U/L Procalcitonin 2.92 H (0-0.5) ng/mL TSH 5.22 H (0.27-4.20) uIU/ mL Urine Color (Yellow) Urine Appearance (CLEAR) Urine pH (5-7) Ur Specific Gravit y (1.005-1.030) Urine Protein (Negative) Urine Glucose (UA) (Normal) Urine Ketones (Negative) Urine Blood (Negative) Urine Nitrate (Negative) Urine Bilirubin (NEGATIVE) Urine Urobilinogen (Negative) mg/dL Ur Leukocyte Anu ase (Negative) Urine RBC (0-2) /hpf Urine WBC (0-5) /hpf Ur Squamous Epith Cells (0-5) Amorphous Sediment Urine Bacteria (NONE) Hyaline Casts Ur Random Sodium mmol/L Ur Random Potassiu m mmol/L Ur Random Chloride mmol/L Urine Opiates Scre en (Negative) ng/mL Ur Barbiturates Sc reen (Negative) ng/mL Ur Phencyclidine S crn (Negative) ng/mL Ur Amphetamines Sc reen (Negative) ng/mL U Benzodiazepines Scrn (Negative) ng/mL Urine Cocaine Scre en (Negative) ng/mL U Marijuana (THC) Screen (Negative) ng/mL Ethyl Alcohol (0-10) mg/dL Serum Ketones (Negative) 01/25/20 01/25/20 01/25/20 Range/Units 10:22 10:38 11:07 WBC (4.0-10.0) 10^3/ uL RBC (4.1-5.3) 10^6/u L Hgb (11.7-16.6) g/dL Hct (42.0-52.0) % MCV (80-94) fL MCH (28.0-34.0) pg MCHC (30.0-36.0) g/dL RDW (12.1-15.1) % Plt Count (130-400) 10^3/c mm MPV (7.4-10.4) fL Neut % (Auto) % Lymph % (Auto) % [place] % (Auto) % Eos % (Auto) % Baso % (Auto) % Neut # (Auto) (1.8-7.7) 10^3/u L Lymph # (Auto) (0.8-4.8) 10^3/u L [place] # (Auto) (0.2-0.9) 10^3/u L Eos # (Auto) (0.0-0.8) 10^3/u L Baso # (Auto) (0.0-0.1) 10^3/u L Nucleated RBC % (a uto) % Nucleated RBCs # /100WBC PT 13.80 H (10.5-13.3) SECO NDS INR 1.03 (0.8-1.2) APTT 45.8 H (23.9-36.7) SECO NDS Specimen Type Arterial Sample Site Brachial, left ABG pH 7.30 L (7.35-7.45) ABG pCO2 34.6 L (35-45) mmHg ABG pO2 71.6 L (80.0-100.0) mmH g ABG HCO3 17.1 L (22-26) mmol/L ABG O2 Saturation 93.6 ABG Base Excess -8.4 L (-2.0-2.0) mmol/ L Erick Test Pos A-a O2 Gradient 33.8 H (5-10) mmHg Hematocrit 32.6 L (42-52) % Hgb O2 Saturation 91.8 L (95-100) % Carboxyhemoglobin 1.0 (0.4-20.1) %THgb Methemoglobin 0.9 (0.4-1.5) % Total Hemoglobin 10.6 L (14-18) g/dL Ionized Calcium 1.2 (1.1-1.4) mmol/L O2 Delivery Device None Land Degradation Analyst ID broma Sodium 131.0 (136-145) mmol/L Potassium 4.1 (3.5-5.1) mmol/L Chloride (98-107) mmol/L Carbon Dioxide (22-29) mmol/L Anion Gap (5-19) BUN (8-23) mg/dL Creatinine (0.7-1.2) mg/dL GFR Calculation (90-130) mL/min Glucose 88.0 (65-115) mg/dL Calculated Osmolal ity (285-295) mOsm/k g Lactate 1.1 (0.5-2.2) mmol/L Calcium (8.5-10.5) mg/dL Iron (59-158) ug/dL TIBC mcg/dl % Saturation (20-50) % Unsat Iron Binding (112-347) ug/dL Total Bilirubin (0.15-1.2) mg/dL AST (0-40) U/L ALT (0-41) U/L Alkaline Phosphata se (40-130) IU/L Creatine Kinase (39-308) U/L Troponin T Baselin e (0-15) ng/L Troponin T 120 Min [place] (0-15) ng/L Delta Troponin T (0-10) ABS# NT-Pro-B Natriuret Pep (0-125) pg/mL Total Protein (6.6-8.7) g/dL Albumin (3.5-5.2) g/dL Globulin (1.3-4.6) g/dL Lipase (13-60) U/L Procalcitonin (0-0.5) ng/mL TSH (0.27-4.20) uIU/ mL Urine Color (Yellow) Urine Appearance (CLEAR) Urine pH (5-7) Ur Specific Gravit y (1.005-1.030) Urine Protein (Negative) Urine Glucose (UA) (Normal) Urine Ketones (Negative) Urine Blood (Negative) Urine Nitrate (Negative) Urine Bilirubin (NEGATIVE) Urine Urobilinogen (Negative) mg/dL Ur Leukocyte Anu ase (Negative) Urine RBC (0-2) /hpf Urine WBC (0-5) /hpf Ur Squamous Epith Cells (0-5) Amorphous Sediment Urine Bacteria (NONE) Hyaline Casts Ur Random Sodium mmol/L Ur Random Potassiu m mmol/L Ur Random Chloride mmol/L Urine Opiates Scre en (Negative) ng/mL Ur Barbiturates Sc reen (Negative) ng/mL Ur Phencyclidine S crn (Negative) ng/mL Ur Amphetamines Sc reen (Negative) ng/mL U Benzodiazepines Scrn (Negative) ng/mL Urine Cocaine Scre en (Negative) ng/mL U Marijuana (THC) Screen (Negative) ng/mL Ethyl Alcohol (0-10) mg/dL Serum Ketones (Negative) 01/25/20 01/25/20 01/25/20 Range/Units 11:28 11:48 11:48 WBC (4.0-10.0) 10^3/ uL RBC (4.1-5.3) 10^6/u L Hgb (11.7-16.6) g/dL Hct (42.0-52.0) % MCV (80-94) fL MCH (28.0-34.0) pg MCHC (30.0-36.0) g/dL RDW (12.1-15.1) % Plt Count (130-400) 10^3/c mm MPV (7.4-10.4) fL Neut % (Auto) % Lymph % (Auto) % [place] % (Auto) % Eos % (Auto) % Baso % (Auto) % Neut # (Auto) (1.8-7.7) 10^3/u L Lymph # (Auto) (0.8-4.8) 10^3/u L [place] # (Auto) (0.2-0.9) 10^3/u L Eos # (Auto) (0.0-0.8) 10^3/u L Baso # (Auto) (0.0-0.1) 10^3/u L Nucleated RBC % (a uto) % Nucleated RBCs # /100WBC PT (10.5-13.3) SECO NDS INR (0.8-1.2) APTT (23.9-36.7) SECO NDS Specimen Type Sample Site ABG pH (7.35-7.45) ABG pCO2 (35-45) mmHg ABG pO2 (80.0-100.0) mmH g ABG HCO3 (22-26) mmol/L ABG O2 Saturation ABG Base Excess (-2.0-2.0) mmol/ L Erick Test A-a O2 Gradient (5-10) mmHg Hematocrit (42-52) % Hgb O2 Saturation (95-100) % Carboxyhemoglobin (0.4-20.1) %THgb Methemoglobin (0.4-1.5) % Total Hemoglobin (14-18) g/dL Ionized Calcium (1.1-1.4) mmol/L O2 Delivery Device Land Degradation Analyst ID Sodium (136-145) mmol/L Potassium (3.5-5.1) mmol/L Chloride (98-107) mmol/L Carbon Dioxide (22-29) mmol/L Anion Gap (5-19) BUN (8-23) mg/dL Creatinine (0.7-1.2) mg/dL GFR Calculation (90-130) mL/min Glucose (65-115) mg/dL Calculated Osmolal ity (285-295) mOsm/k g Lactate (0.5-2.2) mmol/L Calcium (8.5-10.5) mg/dL Iron (59-158) ug/dL TIBC mcg/dl % Saturation (20-50) % Unsat Iron Binding (112-347) ug/dL Total Bilirubin (0.15-1.2) mg/dL AST (0-40) U/L ALT (0-41) U/L Alkaline Phosphata se (40-130) IU/L Creatine Kinase (39-308) U/L Troponin T Baselin e (0-15) ng/L Troponin T 120 Min [place] 44.79 H (0-15) ng/L Delta Troponin T -5.21 L (0-10) ABS# NT-Pro-B Natriuret Pep (0-125) pg/mL Total Protein (6.6-8.7) g/dL Albumin (3.5-5.2) g/dL Globulin (1.3-4.6) g/dL Lipase (13-60) U/L Procalcitonin (0-0.5) ng/mL TSH (0.27-4.20) uIU/ mL Urine Color Dark yellow (Yellow) Urine Appearance Clear (CLEAR) Urine pH 5 (5-7) Ur Specific Gravit y 1.015 (1.005-1.030) Urine Protein Trace (Negative) Urine Glucose (UA) Norm (Normal) Urine Ketones 1+ H (Negative) Urine Blood Neg (Negative) Urine Nitrate Negative (Negative) Urine Bilirubin 1+ H (NEGATIVE) Urine Urobilinogen 4 H (Negative) mg/dL Ur Leukocyte Anu ase Negative (Negative) Urine RBC None (0-2) /hpf Urine WBC 0-4 H (0-5) /hpf Ur Squamous Epith Cells Rare (0-5) Amorphous Sediment Not Reportable Urine Bacteria 1+ H (NONE) Hyaline Casts 0-4 H Ur Random Sodium 46 mmol/L Ur Random Potassiu m 37 mmol/L Ur Random Chloride 37 mmol/L Urine Opiates Scre en Negative (Negative) ng/mL Ur Barbiturates Sc reen Negative (Negative) ng/mL Ur Phencyclidine S crn Negative (Negative) ng/mL Ur Amphetamines Sc reen Negative (Negative) ng/mL U Benzodiazepines Scrn Negative (Negative) ng/mL Urine Cocaine Scre en Negative (Negative) ng/mL U Marijuana (THC) Screen Negative (Negative) ng/mL Ethyl Alcohol (0-10) mg/dL Serum Ketones (Negative) Discharge Plan Discharge Patient Disposition: Admitted As Inpatient Admit Provider: Eliz Mina Clinical Impression: Acute alteration in mental status, Rhabdomyolysis, Alcohol withdrawal delirium, acute, hypoactive, Acute urinary retention Condition: Stable Referrals: Manolo Park MD [Primary Care Provider] - Discharge Date/Time: 01/25/20 13:21 Coding Level of Care Code ED 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
[2020-01-25 10:46] LABS: Alcohol Level < 10 mg/dL (0-10)
[2020-01-25 10:47] LABS: Creatine Phosphokinase 651 U/L (39-308)
[2020-01-25 10:49] LABS: ABG PCO2 34.6 mmHg (35-45); Alveolar-Arterial Oxygen Gradi 33.8 mmHg (5-10); Arterial Blood Gas Hematocrit 32.6 % (42-52); Base Excess ABG -8.4 mmol/L (-2.0-2.0); Blood Gas Allen Test Pos; Blood Gas Sample Site Brachial, left; Blood Gas Sample Type Arterial; HCO3 ABG 17.1 mmol/L (22-26); HGB O2 Sat 91.8 % (95-100); Ionized Calcium Level - ABG 1.2 mmol/L (1.1-1.4); Methemoglobin 0.9 % (0.4-1.5); Oxygen Saturation ABG 93.6; PO2 ABG 71.6 mmHg (80.0-100.0); Potassium Level - ABG 4.1 mmol/L (3.5-5.0); Total Hemoglobin 10.6 g/dL (14-18)
[2020-01-25 11:06] LABS: Lactate (Lactic Acid level) 1.1 mmol/L (0.5-2.2)
[2020-01-25] MEDS: iodixanol 320 mg/mL 100mL Btl IV (11:15)
[2020-01-25 11:49] LABS: Troponin 5 2HR 44.79 ng/L (0-15)
[2020-01-25 11:50] LABS: Troponin 5 2HR Delta -5.21 ABS# (0-10)
[2020-01-25] MEDS: ondansetron 2 mg/ML SDV 2 mL 4 MG IVP (11:51)
[2020-01-25] MEDS: sodium chloride 0.9% 1,000 ML 999 ML IV ×2 (11:55→12:51)
[2020-01-25 12:08] LABS: Add Urine Microscopic? YES; Bilirubin Urine 1+ (NEGATIVE); Blood Urine Neg (Negative); Glucose Urine UA Norm (Normal); Ketones Urine 1+ (Negative); Leukocyte Esterase Urine Negative (Negative); Nitrate Urine Negative (Negative); Protein Urine Trace (Negative); Specific Gravity, Urine 1.015 (1.005-1.030); Urine Appearance Clear (CLEAR); Urine Color Dark Yellow (Yellow); Urobilinogen Urine 4 mg/dL (Negative); pH Urine 5 (5-7)
--- NOTE | 2020-01-25 12:22 | ECG_ITS ---
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 Measurements Intervals [place] Rate: 126 P: 53 CO: 209 QRS: -88 QRSD: 160 T: 84 QT: 370 QTc: 537 Interpretive Statements ELECTRONIC VENTRICULAR PACEMAKER-a sensed V paced rhythm ABNORMAL RHYTHM ECG Compared to ECG 01/25/2020 10:57:54 No significant changes Electronically Signed On 01-26-2020 13:57:45 CDT by Torri Mcnair M.D. [id number]
[2020-01-25 12:23] LABS: Add Urine Culture? No; Bacteria Urine 1+; Hyaline Casts Urine 0-4; Squamous Epithelial Cell Urine RARE (0-5); WBC Urine 0-4 /hpf (0-5)
[2020-01-25 12:39] LABS: INR 1.03 (0.8-1.2)
[2020-01-25 12:40] LABS: Partial Thromboplastin Time 45.8 SECONDS (23.9-36.7)
[2020-01-25] MEDS: pantoprazole 40 mg SDV 80 MG IVP (12:51)
--- NOTE | 2020-01-25 14:03 | PC.NURSE ---
pt. recd. oriented x 1. but knew year
--- NOTE | 2020-01-25 14:05 | PC.NURSE ---
can identify number of fingers held up. talks but doesnt make much sense most of time. did lan say kaley was president
--- NOTE | 2020-01-25 14:13 | P.HP_ITS ---
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 Most of the history was taken via phone from brother Mr. Isaias Esposito whose number is [phone]. He states patient has been having recurrent falls for last 3 to 4 months. He states patient has been getting progressively weak. Patient has been getting progressively disoriented for last 2 to 3 weeks. He states for last 2 weeks patient has been seeing things all across the room. His appetite is decreased. His oral intake is decreased as well. Patient is a chronic alcoholic and drinks hard liquor and beers. As per the brother patient had couple of drinks 2 to 3 days ago. As per the brother patient has not been having any cough, expectoration, diarrhea, fevers. He is not sure if he has had any seizures. As per him patient has been having decreased urinary output. As per the records patient was in the ER yesterday was sent in by the family yesterday also because of recurrent falls. At that time patient was sent home after IV hydration. On examination today patient is seen in ICU, he is confused, hallucinating, right-sided gaze, awake, heart rate of 124 bpm with blood pressure of 114/80 6 mmHg, saturating 96% on room air. Blood work in the ER shows a hemoglobin of 11.6, white count of 9.1, INR 1.03, ABG showing a pH of 7.3, PCO2 34, PO2 of 71, sodium of 131, chloride of 91 with an anion gap of 26 creatinine of 1.0, AST of 71, CPK of 651, lipase of 11, UA negative for nitrate and leuk esterase alcohol level negative and ketones positive. CT head was negative for any acute intracranial hemorrhage or acute changes. CT abdomen pelvis done showed markedly enlarged urinary bladder extending above the umbilicus with mild dilatation of right renal pelvis and ureter, prior left nephrectomy, stable intrahepatic and extrahepatic duct dilatation, cholelithiasis. Review of Systems General: Reports: ROS unobtainable due to mental status Medications/Allergies Home Medications Medication Instructions Recorded Confirmed Last Taken Type Unable to Assess 01/25/20 01/25/20 Unknown History Allergies Allergy/AdvReac Type Severity Reaction Status Date / Time No Known Allergies Allergy Verified 08/25/19 14:33 PFSH Acute PFSH: Medical History (Updated 01/25/20 @ 14:55 by Kevin Oates MD) BPH (benign prostatic hyperplasia) COPD (chronic obstructive pulmonary disease) History of basal cell cancer History of renal cell cancer Hypertension Surgical History (Updated 01/25/20 @ 14:48 by Kevin Oates MD) History of nephrectomy, left History of permanent cardiac pacemaker placement Social History (Updated 01/25/20 @ 14:43 by Kevin Oates MD) Smoking and tobacco status: current every day smoker Alcohol intake: current Alcohol intake frequency: 3 or more drinks per day Alcohol type: hard liquor Substance/Drug Use: former Lives independently: No Household members: family Housing: House Vitals/I&O/Wt Last Vital Signs Temp 98.4 F 01/25/20 13:52 Pulse 117 H 01/25/20 13:52 Resp 21 H 01/25/20 13:52 BP 102/69 01/25/20 13:52 Pulse Ox 99 01/25/20 13:52 Weight last 48 hrs Weight 61.235 kg Physical Exam Narrative: EXAM NARRATIVE: General: Confused, altered HEENT: PERRLA, pupils bilaterally equal and reactive Chest: Normal vesicular breath sounds, no added sounds, equal good air entry bilaterally CVS: S1-S2 regular, no murmurs, no tachycardia, no gallops, no rubs Abdomen: Soft, nontender, no organomegaly, bowel sounds present Neuro: Right-sided gaze, right pupil dilated, pupils reactive, moving all 4 limbs Urinary Catheter Management^: Alfonso: Cath Placed During This Visit: yes Urinary Catheter Date of Insertion: 01/25/20 Urinary Catheter Time of Insertion: 12:45 Data : 01/25/20 09:30 01/25/20 09:30 A&P Assessment and plan (1) Acute alteration in mental status: Status: Acute (2) Confusion: Status: Acute (3) Falls: Status: Acute (4) Alcohol withdrawal delirium, acute, hypoactive: Status: Acute (5) Rhabdomyolysis: Status: Acute (6) Acute urinary retention: Status: Acute (7) History of permanent cardiac pacemaker placement: Status: Acute (8) Weakness generalized: Status: Acute (9) V-tach: Status: Acute (10) COPD (chronic obstructive pulmonary disease): Status: Acute (11) History of nephrectomy, left: Status: Acute Additional A&P Information Altered mental status: Patient has a history of chronic alcohol abuse. As per the brother patient has been getting more and more progressively altered for last couple of weeks to months along with recurrent falls for last 5 to 6 months. Patient does not have any fever, no white count, chances of meningitis are low so we will hold off on LP for now. If patient spikes a fever will request an LP. Cannot rule out cerebellar ataxia or seizure. Patient CPK is elevated could be because of seizure or severe dehydration. Check folate levels, vitamin B12 levels. Banana bag, IV thiamine, IV folic acid after that daily. Normal saline 75 cc/h after that. Keppra thousand milligrams IV stat followed by 500 twice daily. We will request for MRI brain without contrast. We will follow CPK daily. Zofran, Protonix History of COPD/emphysema: Keep saturation over 90%. DuoNebs every 6 hours, budesonide twice daily. History of pacemaker: Patient on evaluation right now in the ICU telemetry seems to be having sinus tachycardia which seems to be paced at 120. Cannot rule out V. tach. Will interrogate pacemaker. EKG stat. Patient takes Lopressor at home. Has not been taking his medication for some time. IV Lopressor 2.5 mg stat followed by 25 mg twice daily. Magnesium oxide 500 mg BID. If any abnormality interrogated pacemaker will consult cardiology. Check phosphorous, magnesium stat. History of nephrectomy: Creatinine stable. Metabolic acidosis: Lactate normal, creatinine normal, ketones positive in blood. Most likely because of starvation ketosis. We will monitor for refeeding syndrome. Monitor magnesium and phosphorus level daily. Continue IV fluids for now. We will monitor BMP daily. Check HbA1c, iron panel, lipid panel, procalcitonin, flu swab, Legionella, lactate, MRSA, proBNP. PT/OT evaluation. Most likely on conversation with his brother he is not able to take care of him at home anymore. Brother himself is 72 years old. Brother is wondering if patient can be placed at long term. Coordination consult. Full code. N.p.o. Heparin 5000 every 12. Attestations Medical Necessity Statement*: More than 2 MN for AMS Time Spent in Patient Care: Greater than 35 minutes (>than 50% of time spent in counselling and/or direct pt care on unit) . Coding Level of Care Code Acute Rn Practitioner for Medg Fwd Diagnoses Acute alteration in mental status R41.82 Confusion R41.0 Falls W19.XXXA Alcohol withdrawal delirium, acute, hypoactive F10.231 Rhabdomyolysis M62.82 Acute urinary retention R33.8 History of permanent cardiac pacemaker placement Z95.0 Weakness generalized R53.1 V-tach I47.2 COPD (chronic obstructive pulmonary disease) J44.9 History of nephrectomy, left Z90.5
[2020-01-25 14:31] LABS: Amphetamines Screen Urine Negative (Negative); Barbiturates Screen Urine Negative (Negative); Benzodiazepines Screen Urine Negative (Negative); Cocaine Screen Urine Negative (Negative); Opiate Screen Urine Negative (Negative); PCP Screen Urine Negative (Negative); THC Screen Urine Negative (Negative)
[2020-01-25 14:42] LABS: Potassium, Radom Urine 37 mmol/L; Urine Random Chloride 37 mmol/L; Urine Random Sodium 46 mmol/L
[2020-01-25 14:54] LABS: NT Pro B Type Natriuretic Pept 14811 pg/mL (0-125); Procalcitonin 2.92 ng/mL (0-0.5)
[2020-01-25] MEDS: metoprolol tartrate 1 mg/1 mL SDV 5 mL 2.5 MG IV (14:55)
[2020-01-25 14:57] LABS: Thyroid Stimulating Hormone 5.22 uIU/mL (0.27-4.20)
[2020-01-25 15:05] LABS: Iron 15 ug/dL (59-158); Percent Saturation 5.6 % (20-50); Total Iron Binding Capacity 264 mcg/dl; Unsaturated Iron Binding 249 ug/dL (112-347)
[2020-01-25 15:05] LABS: Magnesium 1.7 mg/dL (1.7-2.3); Phosphorus 3.3 mg/dL (2.5-4.5)
[2020-01-25 15:07] LABS: Lactic Sepsis W/Reflex 1.3 mmol/L (0.5-2.2); Troponin 5 6HR 53.41 ng/L (0-15); Troponin 5 6HR Delta 3.41 ng/L (0-12)
[2020-01-25] MEDS: folic acid 1 MG, multivitamin inj 10 ML, thiamine 100 MG in sodium chloride 0.9% 1,000 ML 252.8 MG IV (15:08)
[2020-01-25] MEDS: famotidine 20 mg/2 mL INJ IVP (15:18)
[2020-01-25 15:22] LABS: Vitamin B12 741 pg/mL (232-1245)
[2020-01-25 15:44] LABS: Folate Level 10.5 ng/mL (4.5-32.2)
[2020-01-25] MEDS: ipratropium-albuterol 3 mL Neb INHALATION (15:47)
[2020-01-25 16:01] LABS: Influenza A by IFA Negative (Negative); Influenza B by IFA Negative (Negative)
[2020-01-25] MEDS: metoprolol tartrate 25 mg Tablet 12.5 MG PO (17:10)
[2020-01-25] MEDS: heparin 5,000 unit/mL INJ 1 mL 5000 UNIT SUBCUT (17:10)
[2020-01-25] MEDS: folic acid 1 mg Tablet PO (17:10)
[2020-01-25] MEDS: dextrose 5%-sod chloride 0.9% 1,000 ML 75 ML IV (19:41)
--- NOTE | 2020-01-25 20:34 | PC.NURSE ---
keppra retimed as it was given at 1510 and is scheduled q12hr.
[2020-01-25 23:37] LABS: T3 Free 1.5 PG/ML (2.0-4.4)
[2020-01-26] VITALS (17 sets, daily range): BP systolic 95–109; BP diastolic 60–76; PULSE 88–98; RESP 14–22; TEMP 36.6–37.2; O2SAT 93–98
[2020-01-26 02:42] LABS: Prolactin 10.66 ng/mL (4.0-15.2)
[2020-01-26] MEDS: heparin 5,000 unit/mL INJ 1 mL 5000 UNIT SUBCUT ×2 (03:34→16:36)
[2020-01-26] MEDS: famotidine 20 mg/2 mL INJ IVP (03:34)
[2020-01-26] MEDS: ipratropium-albuterol 3 mL Neb INHALATION ×4 (03:37→20:00)
[2020-01-26 05:11] LABS: Glucose Point of Care 137 mg/dL (70-110)
[2020-01-26 06:03] LABS: Basophils % 0.3 %; Eosinophils % 0.7 %; Hematocrit 33.2 % (42.0-52.0); Lymphocytes # 0.6 10^3/uL (0.8-4.8); Lymphocytes % 10.2 %; Mean Corpuscular HGB Conc 30.1 g/dL (30.0-36.0); Mean Corpuscular Hemoglobin 25.3 pg (28.0-34.0); Mean Corpuscular Volume 84.1 fL (80-94); Mean Platelet Volume 12.9 fL (7.4-10.4); Monocytes # 0.9 10^3/uL (0.2-0.9); Monocytes % 15.3 %; Neutrophils # 4.3 10^3/uL (1.8-7.7); Neutrophils % 73.2 %; Nucleated Red Blood Cells % 0 %; Platelet Count 114 10^3/cmm (130-400); Red Blood Count 3.95 10^6/uL (4.1-5.3); Red Cell Distribution Width 16.6 % (12.1-15.1); White Blood Count 5.9 10^3/uL (4.0-10.0)
[2020-01-26] MEDS: dextrose 5%-sod chloride 0.9% 1,000 ML 75 ML IV ×2 (06:06→18:26)
[2020-01-26 06:20] LABS: Procalcitonin 1.62 ng/mL (0-0.5)
[2020-01-26 06:32] LABS: Alanine Aminotransferase 31 U/L (0-41); Albumin Level 2.5 g/dL (3.5-5.2); Alkaline Phosphatase 130 IU/L (40-130); Aspartate Amino Transferase 54 U/L (0-40); Blood Urea Nitrogen 16 mg/dL (8-23); Calcium 8.4 mg/dL (8.5-10.5); Carbon Dioxide 18 mmol/L (22-29); Chloride 103 mmol/L (98-107); Creatine Phosphokinase 151 U/L (39-308); Globulin 3.1 g/dL (1.3-4.6); Glomerular Filtration Rate 83.9 mL/min (90-130); Glucose 138 mg/dL (65-115); Magnesium 1.8 mg/dL (1.7-2.3); Osmolality Calculated 275 mOsm/kg (285-295); Sodium 133 mmol/L (136-145); Total Bilirubin 0.8 mg/dL (0.15-1.2); Total Protein 5.6 g/dL (6.6-8.7)
[2020-01-26 06:50] LABS: Estmated Average Glucose 100; Hemoglobin A1C 5.1 % (4.0-6.0)
[2020-01-26] MEDS: budesonide 0.5 mg/2 mL Neb INHALATION ×2 (08:00→19:39)
[2020-01-26] MEDS: metoprolol tartrate 25 mg Tablet 12.5 MG PO ×2 (09:23→17:14)
[2020-01-26] MEDS: folic acid 1 mg Tablet PO ×2 (09:24→17:14)
--- NOTE | 2020-01-26 09:53 | PM.PN ---
Subjective Subjective: Interval history: No acute events overnight. On examination today patient is a lot more awake. He is AO x3. Having can complete conversation. Today morning worked well with physical therapy. Patient has remained hemodynamically stable overnight. Denies of any nausea, vomiting at present. Vitals/I&O/Wt Last Vital Signs Temp 98.9 F 01/26/20 04:00 Pulse 94 01/26/20 07:45 Resp 18 01/26/20 07:45 BP 103/70 01/26/20 04:00 Pulse Ox 96 01/26/20 07:45 01/25/20 01/26/20 01/26/20 22:59 06:59 14:59 Intake Total 0 / 0 886.25 / 886.25 Output Total 500 / 1600 Balance 0 / -1100 386.25 / -713.75 Weight last 48 hrs Weight 61.008 kg Weight 61.235 kg Physical Exam Narrative: EXAM NARRATIVE: General: No acute distress, AO x3 HEENT: PERRLA, pupils bilaterally equal and reactive Chest: Normal vesicular breath sounds, no added sounds, equal good air entry bilaterally CVS: S1-S2 regular, no murmurs, no tachycardia, no gallops, no rubs Abdomen: Soft, nontender, no organomegaly, bowel sounds present Neuro: No acute distress, AO x3, moving all 4 limbs, power 4/5 all limbs Urinary Catheter Management^: Alfonso: Cath Placed During This Visit: yes Reason for Continuing Indwelling Catheter: Accurate Measurement of Urinary Output in Critically Ill Patients Urinary Catheter Date of Insertion: 01/25/20 Urinary Catheter Time of Insertion: 12:45 Data : 01/26/20 05:50 01/26/20 05:50 Micro: Microbiology 01/25/20 15:30 Legionella Urinary Antigen - Final Urine Catheterized A&P Assessment and plan (1) Acute alteration in mental status: Status: Acute (2) Confusion: Status: Acute (3) Falls: Status: Acute (4) Alcohol withdrawal delirium, acute, hypoactive: Status: Acute (5) Acute urinary retention: Status: Acute (6) Weakness generalized: Status: Acute (7) History of permanent cardiac pacemaker placement: Status: Acute (8) V-tach: As per the pacemaker interrogation. Continue to monitor. Status: Acute (9) COPD (chronic obstructive pulmonary disease): Status: Acute (10) High anion gap metabolic acidosis: Status: Acute (11) Thrombocytopenia: Most likely from chronic alcohol consumption. Continue to monitor. No sign of active bleeding Status: Acute (12) History of nephrectomy, left: Monitor renal functions. Status: Acute (13) Rhabdomyolysis: Most likely from severe dehydration. Resolved. Status: Acute (14) Iron deficiency anemia: Status: Acute Additional A&P Information Altered mental status: Patient has a history of chronic alcohol abuse. As per the brother patient has been getting more and more progressively altered for last couple of weeks to months along with recurrent falls for last 5 to 6 months. Patient does not have any fever, no white count, chances of meningitis are low so we will hold off on LP for now. If patient spikes a fever will request an LP. Patient doing a lot better today morning. Most likely his symptoms worse secondary to either seizure or cerebellar ataxia because of chronic alcoholism. We will switch IV medication to oral. Keppra 500 mg oral twice daily. Continue oral folate, IV thiamine. Continue with D5 NS at 75 cc/h. Start patient on Remeron 15 mg oral at bedtime. History of COPD/emphysema: Keep saturation over 90%. DuoNebs every 6 hours, budesonide twice daily. History of pacemaker: Interrogation of pacemaker done yesterday shows that he has had a V. tach and NSVT in last 1-1/2 months. Most likely patient has not been taking his oral Lopressor at home. For now continue with IV Lopressor 12.5 mg twice daily. Keep magnesium over 2 phosphorus over 4. Continue with magnesium oxide 400 mg twice daily. History of nephrectomy: Creatinine stable. Metabolic acidosis: Resolved. Most likely because of starvation ketosis. Continue with IV fluids as above. We will monitor for refeeding syndrome. We will check magnesium and phosphorus daily. Iron deficiency anemia: Does not seem to be having any acute bleeding. Continue with oral Protonix. Start patient on oral iron supplementation. TSH elevated on the labs yesterday. Check free T3 and T4. PT/OT evaluation done. Results appreciated. Given start improvement in patient's mentation and his physical therapy evaluation done today. Is most likely that patient can go home with home health. Will speak with patient's brother and continue to monitor. Regular diet. Full code. Heparin 5000 every 12. Attestations Medical Necessity Statement*: Altered mental status, cerebellar ataxia, possible seizures Time Spent in Patient Care: Greater than 35 minutes (>than 50% of time spent in counselling and/or direct pt care on unit). Coding Level of Care Code Acute Medical Terminologist for Chg Fwd Diagnoses Acute alteration in mental status R41.82 Confusion R41.0 Falls W19.XXXA Alcohol withdrawal delirium, acute, hypoactive F10.231 Acute urinary retention R33.8 Weakness generalized R53.1 History of permanent cardiac pacemaker placement Z95.0 V-tach I47.2 COPD (chronic obstructive pulmonary disease) J44.9 High anion gap metabolic acidosis E87.2 Thrombocytopenia D69.6 History of nephrectomy, left Z90.5 Rhabdomyolysis M62.82 Iron deficiency anemia D50.9
[2020-01-26] MEDS: pantoprazole DR 40 mg Tablet PO (14:48)
--- NOTE | 2020-01-26 14:49 | PC.NURSE ---
MEDICATION GIVEN LATE DUE TO RN'S OTHER CRITICAL PATIENT
[2020-01-26] MEDS: ferrous gluconate 324 mg Tablet PO (17:14)
[2020-01-26] MEDS: magnesium oxide 400 mg tablet PO (17:14)
[2020-01-26] MEDS: levETIRAcetam 500 mg Tablet PO (17:14)
[2020-01-26] MEDS: mirtazapine 15 mg Tablet PO (20:30)
[2020-01-27] VITALS (14 sets, daily range): BP systolic 114–134; BP diastolic 80–106; PULSE 72–114; RESP 14–22; TEMP 36.6–37.1; O2SAT 93–100
[2020-01-27] MEDS: ipratropium-albuterol 3 mL Neb INHALATION ×4 (02:35→20:28)
[2020-01-27] MEDS: heparin 5,000 unit/mL INJ 1 mL 5000 UNIT SUBCUT ×2 (03:53→16:44)
[2020-01-27 04:22] LABS: Magnesium 1.6 mg/dL (1.7-2.3); Phosphorus 2.6 mg/dL (2.5-4.5)
[2020-01-27 04:23] LABS: Alanine Aminotransferase 26 U/L (0-41); Albumin Level 2.6 g/dL (3.5-5.2); Alkaline Phosphatase 108 IU/L (40-130); Anion Gap 16.9 (5-19); Blood Urea Nitrogen 11 mg/dL (8-23); Calcium 8.1 mg/dL (8.5-10.5); Carbon Dioxide 18 mmol/L (22-29); Chloride 105 mmol/L (98-107); Glomerular Filtration Rate 112.1 mL/min (90-130); Glucose 124 mg/dL (65-115); Osmolality Calculated 279 mOsm/kg (285-295); Potassium 3.9 mmol/L (3.5-5.1); Sodium 136 mmol/L (136-145); Total Bilirubin 0.4 mg/dL (0.15-1.2); Total Protein 4.6 g/dL (6.6-8.7)
[2020-01-27 04:53] LABS: Aspartate Amino Transferase 38 U/L (0-40)
[2020-01-27 05:02] LABS: Basophils % 0.2 %; Eosinophils # 0.1 10^3/uL (0.0-0.8); Eosinophils % 1.7 %; Hematocrit 39.1 % (42.0-52.0); Hemoglobin 12.1 g/dL (11.7-16.6); Lymphocytes # 0.6 10^3/uL (0.8-4.8); Lymphocytes % 13.7 %; Mean Corpuscular HGB Conc 30.9 g/dL (30.0-36.0); Mean Corpuscular Hemoglobin 25.4 pg (28.0-34.0); Mean Corpuscular Volume 82.1 fL (80-94); Monocytes # 0.8 10^3/uL (0.2-0.9); Monocytes % 18.2 %; Neutrophils # 2.8 10^3/uL (1.8-7.7); Neutrophils % 65.3 %; Nucleated Red Blood Cells % 0 %; Platelet Count 71 10^3/cmm (130-400); Red Blood Count 4.76 10^6/uL (4.1-5.3); Red Cell Distribution Width 16.7 % (12.1-15.1); White Blood Count 4.2 10^3/uL (4.0-10.0)
[2020-01-27 06:01] LABS: Slide Review Slide Review Perform
[2020-01-27] MEDS: budesonide 0.5 mg/2 mL Neb INHALATION ×2 (08:00→20:27)
[2020-01-27] MEDS: pantoprazole DR 40 mg Tablet PO (08:29)
[2020-01-27] MEDS: folic acid 1 mg Tablet PO ×2 (08:29→17:29)
[2020-01-27] MEDS: levETIRAcetam 500 mg Tablet PO ×2 (08:29→17:29)
[2020-01-27] MEDS: ferrous gluconate 324 mg Tablet PO ×2 (08:29→17:29)
[2020-01-27] MEDS: magnesium oxide 400 mg tablet PO ×2 (08:30→17:29)
[2020-01-27] MEDS: metoprolol tartrate 25 mg Tablet 12.5 MG PO ×2 (08:30→15:23)
[2020-01-27] MEDS: dextrose 5%-sod chloride 0.9% 1,000 ML 75 ML IV (08:31)
--- NOTE | 2020-01-27 10:03 | P.PN_ITS ---
Subjective Subjective: Interval history: No acute events overnight. On examination today patient is a lot more awake. He is AO x3. Having can complete conversation. Denies of any nausea, vomiting, headache. Called brother Isaias to update regarding Mr. Esposito's health. Mr. Esparza states that he would want his brother to be placed in long term. Discussed in detail that for now patient is AO x3 and does not want to go to SNF. Patient states he has had made multiple suggestions of being suicidal or shooting himself. On my interview with the patient patient has not stated that he is suicidal or homicidal. Have advised patient's family to come in with [facility] to the ER to fill out an aff idavit for a possible 96-hour hold if they think patient is suicidal as while in hospital for last 48 hours patient has not made any statement of being suicidal neither to me not to any of the nursing staff. Vitals/I&O/Wt Last Vital Signs Temp 98.2 F 01/27/20 08:00 Pulse 97 01/27/20 08:00 Resp 19 H 01/27/20 08:00 BP 124/84 01/27/20 08:00 Pulse Ox 100 01/27/20 08:00 01/26/20 01/27/20 01/27/20 22:59 06:59 14:59 Intake Total 1025 / 1475 200 / 1675 1000 / 1000 Output Total 350 / 350 700 / 1050 Balance 675 / 1125 -500 / 625 1000 / 1000 Weight last 48 hrs Weight 56.518 kg Weight 61.008 kg Physical Exam Narrative: EXAM NARRATIVE: General: No acute distress, AO x3 HEENT: PERRLA, pupils bilaterally equal and reactive Chest: Normal vesicular breath sounds, no added sounds, equal good air entry bilaterally CVS: S1-S2 regular, no murmurs, no tachycardia, no gallops, no rubs Abdomen: Soft, nontender, no organomegaly, bowel sounds present Neuro: No acute distress, AO x3, moving all 4 limbs, power 4/5 all limbs Urinary Catheter Management^: Alfonso: Cath Placed During This Visit: yes Reason for Continuing Indwelling Catheter: Accurate Measurement of Urinary Output in Critically Ill Patients Urinary Catheter Date of Insertion: 01/25/20 Urinary Catheter Time of Insertion: 12:45 Data : 01/27/20 03:02 01/27/20 03:02 Micro: Microbiology 01/25/20 15:30 MRSA Culture - Final Nose A&P Assessment and plan (1) Acute alteration in mental status: Status: Acute (2) Confusion: Status: Acute (3) Falls: Status: Acute (4) Alcohol withdrawal delirium, acute, hypoactive: Status: Acute (5) Acute urinary retention: Status: Acute (6) Weakness generalized: Status: Acute (7) History of permanent cardiac pacemaker placement: Status: Acute (8) V-tach: As per the pacemaker interrogation. Continue to monitor. Status: Acute (9) COPD (chronic obstructive pulmonary disease): Status: Acute (10) High anion gap metabolic acidosis: Status: Acute (11) Thrombocytopenia: Most likely from chronic alcohol consumption. Continue to monitor. No sign of active bleeding Status: Acute (12) History of nephrectomy, left: Monitor renal functions. Status: Acute (13) Rhabdomyolysis: Most likely from severe dehydration. Resolved. Status: Acute (14) Iron deficiency anemia: Status: Acute Additional A&P Information Altered mental status: Patient has a history of chronic alcohol abuse. As per the brother patient has been getting more and more progressively altered for last couple of weeks to months along with recurrent falls for last 5 to 6 months . Patient does not have any fever, no white count, chances of meningitis are low so we will hold off on LP for now. If patient spikes a fever will request an LP. Patient doing a lot better today morning. Most likely his symptoms worse secondary to either seizure or cerebellar ataxia because of chronic alcoholism. Continue with Keppra 5 mg twice daily, oral folate, IV thiamine. As patient is tolerating diet well will discontinue IV fluids. Continue with Remeron 15 mg oral at bedtime. History of COPD/emphysema: Keep saturation over 90%. DuoNebs every 6 hours, budesonide twice daily. Patient looks mildly out of breath today. Discontinue IV fluids. Will give Lasix 20 mg once. Acute urinary retention: Check PSA. DC Alfonso and give voiding trial. Restart home dose of Flomax. Most likely patient was not taking Flomax as well along with his other medications. History of pacemaker: Interrogation of pacemaker done yesterday shows that he has had a V. tach and NSVT in last 1-1/2 months. Most likely patient has not been taking his oral Lopressor at home. Increase Lopressor to 25 mg twice daily. Keep magnesium over 2 phosphorus over 4. Continue with magnesium oxide 400 mg twice daily. History of nephrectomy: Creatinine stable. Metabolic acidosis: Resolved. Most likely because of starvation ketosis. Continue with IV fluids as above. We will monitor for refeeding syndrome. We will check magnesium and phosphorus daily. Iron deficiency anemia: Hemoglobin stable. Does not seem to be having any acute bleeding. Continue with oral Protonix, oral iron supplementation. PT/OT evaluation done. Results appreciated. Given the reevaluation of physical therapy. Patient would most likely need SNF placement. Patient is denying for now. As above patient's family think he is a harm to himself and has been suicidal in the past. They will be coming to full and if it ever for possible 96-hour hold. Care coordination consult. One-to-one sitter. As patient is doing fine can transfer him to the floor with telemetry. Patient is not a 96-hour hold for now as patient has not given any statement of being homicidal or suicidal while being in hospital. Regular diet. Full code. Heparin 5000 every 8-hour Attestations Medical Necessity Statement*: Altered mental status, possible seizures, ce rebellar ataxia, COPD Time Spent in Patient Care: Greater than 35 minutes (>than 50% of time spent in counselling and/or direct pt care on unit) . Coding Level of Care Code Acute Salon Professional for Desire [place] Diagnoses Acute alteration in mental status R41.82 Confusion R41.0 Falls W19.XXXA Alcohol withdrawal delirium, acute, hypoactive F10.231 Acute urinary retention R33.8 Weakness generalized R53.1 History of permanent cardiac pacemaker placement Z95.0 V-tach I47.2 COPD (chronic obstructive pulmonary disease) J44.9 High anion gap metabolic acidosis E87.2 Thrombocytopenia D69.6 History of nephrectomy, left Z90.5 Rhabdomyolysis M62.82 Iron deficiency anemia D50.9
[2020-01-27] MEDS: FUROsemide 20 mg Tablet PO (10:56)
[2020-01-27] MEDS: metoprolol tartrate 25 mg Tablet PO (17:31)
--- NOTE | 2020-01-27 19:54 | PC.NURSE ---
pt incont of urine and small bowell ariel care per staff.
[2020-01-27] MEDS: mirtazapine 15 mg Tablet PO (21:02)
[2020-01-28] VITALS (12 sets, daily range): BP systolic 105–144; BP diastolic 72–97; PULSE 77–97; RESP 16–24; TEMP 36.7–37; O2SAT 93–100
--- NOTE | 2020-01-28 00:44 | PC.NURSE ---
incont of urine ariel care per staff
[2020-01-28] MEDS: ipratropium-albuterol 3 mL Neb INHALATION ×4 (02:34→20:38)
[2020-01-28] MEDS: heparin 5,000 unit/mL INJ 1 mL 5000 UNIT SUBCUT ×2 (04:09→16:02)
[2020-01-28 05:17] LABS: Basophils % 0.7 %; Eosinophils # 0.1 10^3/uL (0.0-0.8); Eosinophils % 2.6 %; Hematocrit 30.6 % (42.0-52.0); Hemoglobin 9.4 g/dL (11.7-16.6); Lymphocytes # 0.7 10^3/uL (0.8-4.8); Lymphocytes % 17.2 %; Mean Corpuscular HGB Conc 30.7 g/dL (30.0-36.0); Mean Corpuscular Hemoglobin 25.3 pg (28.0-34.0); Mean Corpuscular Volume 82.3 fL (80-94); Mean Platelet Volume 11.8 fL (7.4-10.4); Monocytes # 0.8 10^3/uL (0.2-0.9); Monocytes % 18.4 %; Neutrophils # 2.5 10^3/uL (1.8-7.7); Neutrophils % 58.5 %; Nucleated Red Blood Cells % 0 %; Platelet Count 102 10^3/cmm (130-400); Red Blood Count 3.72 10^6/uL (4.1-5.3); Red Cell Distribution Width 16.4 % (12.1-15.1); White Blood Count 4.2 10^3/uL (4.0-10.0)
[2020-01-28 05:39] LABS: Magnesium 1.7 mg/dL (1.7-2.3); Phosphorus 2.9 mg/dL (2.5-4.5)
[2020-01-28 05:40] LABS: Alanine Aminotransferase 22 U/L (0-41); Albumin Level 2.6 g/dL (3.5-5.2); Alkaline Phosphatase 93 IU/L (40-130); Anion Gap 13.4 (5-19); Aspartate Amino Transferase 23 U/L (0-40); Blood Urea Nitrogen 8 mg/dL (8-23); Calcium 8.2 mg/dL (8.5-10.5); Carbon Dioxide 26 mmol/L (22-29); Chloride 104 mmol/L (98-107); Globulin 2.2 g/dL (1.3-4.6); Glomerular Filtration Rate 112.1 mL/min (90-130); Glucose 87 mg/dL (65-115); Osmolality Calculated 285 mOsm/kg (285-295); Potassium 3.4 mmol/L (3.5-5.1); Sodium 140 mmol/L (136-145); Total Bilirubin 0.3 mg/dL (0.15-1.2); Total Protein 4.8 g/dL (6.6-8.7)
[2020-01-28] MEDS: ferrous gluconate 324 mg Tablet PO ×2 (07:43→17:44)
[2020-01-28] MEDS: magnesium oxide 400 mg tablet PO ×2 (07:44→17:44)
[2020-01-28] MEDS: levETIRAcetam 500 mg Tablet PO ×2 (07:44→17:44)
[2020-01-28] MEDS: metoprolol tartrate 25 mg Tablet PO ×2 (07:45→17:44)
[2020-01-28] MEDS: folic acid 1 mg Tablet PO ×2 (07:45→17:44)
[2020-01-28] MEDS: pantoprazole DR 40 mg Tablet PO (07:45)
--- NOTE | 2020-01-28 09:11 | XRR_ITS ---
PROCEDURE INFORMATION: Exam: XR Right Elbow Exam date and time: 01/28/2020 10:59 AM Age: 69 years old Clinical indication: Pain; Swelling; Elbow; Right; Additional info: Swollen complaints of pain TECHNIQUE: Imaging protocol: XR Right elbow. Views: 1 or 2 views. COMPARISON: No relevant prior studies available. FINDINGS: Bones/joints: Radial head and proximal ulna are without fracture. No joint effusion. Traction apophysis at the insertion of the forearm extensors Soft tissues: Medial and lateral columns are without fracture. Soft tissue swelling in the antecubital region in the soft tissues about the proximal aspect of the forearm. Soft tissue swelling posteriorly. No osseous abnormality appreciated to account for the above. Consider MRI if indicated. XR/XR elbow RT 2V [id number] IMPRESSION: 1. Unremarkable elbow. 2. Soft tissue swelling in the antecubital region in the soft tissues about the proximal aspect of the forearm. Soft tissue swelling posteriorly. No osseous abnormality appreciated to account for the above. Consider MRI if indicated.
[2020-01-28] MEDS: budesonide 0.5 mg/2 mL Neb INHALATION ×2 (09:26→20:38)
--- NOTE | 2020-01-28 10:00 | PC.SOCIAL ---
IMM Page 2 of [facility] explained to patient and signed. He verbalizes understanding. Initialed, dated, and timed and placed in chart. Copy provided to patient.
--- NOTE | 2020-01-28 11:46 | PM.PN ---
Subjective Subjective: Interval history: Patient seen to be doing a bit better. He is more alert. He is oriented to person place and time. Discussed with him about depression and suicidal thoughts. He states he has been down about his house but overall does not feel suicidal. He is not been having any thoughts of this. He is not been making any plans. Does not feel like he needs to be on any new meds for depression. He agrees a drinking alcohol is been a problem for him. He has not been compliant with his medications. Not been eating or drinking healthy otherwise. He would like to try to stay away from alcohol. He is agreeable today to going to rehab. His right elbow is still red and swollen. He does not feel like it is any worse today though. Vitals/I&O/Wt Last Vital Signs Temp 98.1 F 01/28/20 11:35 Pulse 97 01/28/20 11:35 Resp 18 01/28/20 11:35 BP 118/78 01/28/20 11:35 Pulse Ox 100 01/28/20 11:35 01/27/20 01/28/20 01/28/20 22:59 06:59 14:59 Intake Total 180 / 1446 30 / 1446 270 / 270 Output Total 502 400 / 400 Balance 179 / 944 30 / 944 -130 / -130 Weight last 48 hrs Weight 123 lb 12.8 oz Weight 124 lb 9.6 oz Physical Exam Narrative: EXAM NARRATIVE: General: No acute distress, Alert. Well nourished. Heart: Regular rate and rhythm. No murmurs, rubs or gallops. Normal capillary refill. Lungs: Clear to auscultation. No wheezes, rhonchi or rales. Abdomen: Positive bowel sounds. Non-tender, non-distended. No hepatosplenomegaly. No gaurding. Extremities: No clubbing, cyanosis, or edema. Negative Lizz's Urinary Catheter Management^: Alfonso: Cath Placed During This Visit: yes Reason for Continuing Indwelling Catheter: Accurate Measurement of Urinary Output in Critically Ill Patients Urinary Catheter Date of Insertion: 01/25/20 Urinary Catheter Time of Insertion: 12:45 Data : 01/28/20 04:06 01/28/20 04:06 A&P Assessment and plan (1) Iron deficiency anemia: This is stable. Secondary to his alcoholism. Status: Acute (2) Thrombocytopenia: Stable Status: Acute (3) COPD (chronic obstructive pulmonary disease): Status: Acute (4) Acute alteration in mental status: This is improved. He seems to be back to his baseline. Status: Acute (5) Alcohol withdrawal delirium, acute, hypoactive: -This is really his acute issue for this hospitalization. He seems to be over the withdrawal aspect. No evidence of seizures at this time. He may have made some suicidal comments while intoxicated but clearly has no suicidal thoughts or intentions at this time. I think he is more than safe to go to rehab. He is agreeable at this time. We will have social worker delinquency prevention continue to work on this. I do not see a need for psychiatry consultation at this time. Status: Acute (6) Falls: -Patient still has some right elbow pain. X-rays pending. There looks to be some mild cellulitis and will go ahead and treat with some antibiotics p.o. Status: Acute Attestations Medical Necessity Statement*: Patient is here with alcohol intoxication and withdrawal who is ready for discharge to prison once approved by insurance. Coding Level of Care Code Acute Commissioning Engineer for [facility] [place] Diagnoses Iron deficiency anemia D50.9 Thrombocytopenia D69.6 COPD (chronic obstructive pulmonary disease) J44.9 Acute alteration in mental status R41.82 Alcohol withdrawal delirium, acute, hypoactive F10.231 Falls W19.XXXA
--- NOTE | 2020-01-28 15:48 | PC.RESP ---
Smoking Cessation and Pulmonary Rehab information sent to patient with a schedule of classes.
[2020-01-28] MEDS: sulfamethoxazole-trimeth DS 160-800 mg Tablet 1 TAB PO (17:44)
[2020-01-28] MEDS: mirtazapine 15 mg Tablet PO (21:42)
[2020-01-29] VITALS (15 sets, daily range): BP systolic 101–128; BP diastolic 63–83; PULSE 75–96; RESP 16–24; TEMP 36.6–37.1; O2SAT 93–97; BMI 18.8
[2020-01-29] MEDS: ipratropium-albuterol 3 mL Neb INHALATION ×4 (02:53→20:41)
[2020-01-29] MEDS: heparin 5,000 unit/mL INJ 1 mL 5000 UNIT SUBCUT ×2 (03:59→17:04)
--- NOTE | 2020-01-29 06:33 | PM.PN ---
Subjective Subjective: Interval history: Patient seems to be doing well. No fevers or chills. No chest pain or shortness of breath. He is anxious to get out here. He seems to be in better spirits. Again at no time as he had any suicidal thoughts or ideations while here. His elbow seems to be doing better as well. Pains better and range of motion is improved. Vitals/I&O/Wt Last Vital Signs Temp 98.2 F 01/29/20 04:00 Pulse 89 01/29/20 04:00 Resp 24 H 01/29/20 04:00 BP 126/83 01/29/20 04:00 Pulse Ox 94 01/29/20 04:00 01/28/20 01/28/20 01/29/20 14:59 22:59 06:59 Intake Total 750 / 1090 240 / 1090 100 / 1090 Output Total 802 / 1402 300 / 1402 300 / 1402 Balance -52 / -312 -60 / -312 -200 / -312 Weight last 48 hrs Weight 123 lb 12.8 oz Weight 123 lb 12.8 oz Physical Exam Narrative: EXAM NARRATIVE: General: No acute distress, Alert. Well nourished. Heart: Regular rate and rhythm. No murmurs, rubs or gallops. Normal capillary refill. Lungs: Clear to auscultation. No wheezes, rhonchi or rales. Abdomen: Positive bowel sounds. Non-tender, non-distended. No hepatosplenomegaly. No gaurding. Extremities: No clubbing, cyanosis, or edema. Negative Lizz's Urinary Catheter Management^: Alfonso: Cath Placed During This Visit: yes Reason for Continuing Indwelling Catheter: Accurate Measurement of Urinary Output in Critically Ill Patients Urinary Catheter Date of Insertion: 01/25/20 Urinary Catheter Time of Insertion: 12:45 Data : 01/28/20 04:06 01/28/20 04:06 A&P Assessment and plan (1) Alcohol withdrawal delirium, acute, hypoactive: -This is really his acute issue for this hospitalization. He seems to be over the withdrawal aspect. No evidence of seizures at this time. He may have made some suicidal comments while intoxicated but clearly has no suicidal thoughts or intentions at this time. I think he is more than safe to go to rehab. He is agreeable at this time. We will have social work faculty member continue to work on this. I do not see a need for psychiatry consultation at this time. -Patient is ready for discharge when insurance approves placement rehab Status: Acute (2) Iron deficiency anemia: This is stable. Secondary to his alcoholism. Status: Acute (3) Thrombocytopenia: Stable Status: Acute (4) COPD (chronic obstructive pulmonary disease): Status: Acute (5) Acute alteration in mental status: This is improved. He seems to be back to his baseline. Status: Acute (6) Falls: -Patient still has some right elbow pain. This is improving significantly though. X-ray was negative. Status: Acute Attestations Medical Necessity Statement*: Patient is ready for discharge. He will require continued hospitalization until we get approval for insurance for transfer to rehab. Coding Level of Care Code Acute Rehabilitation Program Coordinator for [facility] Diagnoses Alcohol withdrawal delirium, acute, hypoactive F10.231 Iron deficiency anemia D50.9 Thrombocytopenia D69.6 COPD (chronic obstructive pulmonary disease) J44.9 Acute alteration in mental status R41.82 Falls W19.XXXA
[2020-01-29] MEDS: levETIRAcetam 500 mg Tablet PO ×2 (08:15→17:04)
[2020-01-29] MEDS: magnesium oxide 400 mg tablet PO ×2 (08:15→17:04)
[2020-01-29] MEDS: metoprolol tartrate 25 mg Tablet PO ×2 (08:15→17:04)
[2020-01-29] MEDS: sulfamethoxazole-trimeth DS 160-800 mg Tablet 1 TAB PO ×2 (08:15→17:04)
[2020-01-29] MEDS: ferrous gluconate 324 mg Tablet PO ×2 (08:15→17:04)
[2020-01-29] MEDS: pantoprazole DR 40 mg Tablet PO (08:15)
[2020-01-29] MEDS: folic acid 1 mg Tablet PO ×2 (08:15→17:04)
[2020-01-29] MEDS: budesonide 0.5 mg/2 mL Neb INHALATION ×2 (09:01→20:41)
[2020-01-30] VITALS (10 sets, daily range): BP systolic 94–110; BP diastolic 61–73; PULSE 74–88; RESP 16–24; TEMP 36.6–36.9; O2SAT 92–97; BMI 18.8
[2020-01-30] MEDS: mirtazapine 15 mg Tablet PO (00:20)
[2020-01-30] MEDS: ipratropium-albuterol 3 mL Neb INHALATION ×2 (02:17→09:06)
[2020-01-30] MEDS: heparin 5,000 unit/mL INJ 1 mL 5000 UNIT SUBCUT (04:30)
[2020-01-30 05:24] LABS: Basophils % 0.4 %; Eosinophils # 0.1 10^3/uL (0.0-0.8); Eosinophils % 2.8 %; Hemoglobin 9.9 g/dL (11.7-16.6); Lymphocytes # 0.9 10^3/uL (0.8-4.8); Lymphocytes % 18.5 %; Mean Corpuscular Hemoglobin 24.6 pg (28.0-34.0); Mean Corpuscular Volume 82.1 fL (80-94); Mean Platelet Volume 11.8 fL (7.4-10.4); Monocytes # 0.6 10^3/uL (0.2-0.9); Monocytes % 13.8 %; Neutrophils # 2.9 10^3/uL (1.8-7.7); Neutrophils % 61.7 %; Nucleated Red Blood Cells % 0 %; Platelet Count 146 10^3/cmm (130-400); Red Blood Count 4.02 10^6/uL (4.1-5.3); Red Cell Distribution Width 16.5 % (12.1-15.1); White Blood Count 4.6 10^3/uL (4.0-10.0)
[2020-01-30 05:54] LABS: Alanine Aminotransferase 14 U/L (0-41); Albumin Level 2.6 g/dL (3.5-5.2); Alkaline Phosphatase 75 IU/L (40-130); Anion Gap 13.9 (5-19); Aspartate Amino Transferase 17 U/L (0-40); Blood Urea Nitrogen 9 mg/dL (8-23); Calcium 8.7 mg/dL (8.5-10.5); Carbon Dioxide 25 mmol/L (22-29); Chloride 103 mmol/L (98-107); Glomerular Filtration Rate 83.9 mL/min (90-130); Glucose 87 mg/dL (65-115); Osmolality Calculated 281 mOsm/kg (285-295); Potassium 3.9 mmol/L (3.5-5.1); Sodium 138 mmol/L (136-145); Total Bilirubin 0.2 mg/dL (0.15-1.2); Total Protein 5.6 g/dL (6.6-8.7)
[2020-01-30] MEDS: sulfamethoxazole-trimeth DS 160-800 mg Tablet 1 TAB PO (08:25)
[2020-01-30] MEDS: thiamine 100 mg Tablet 50 MG PO (08:25)
[2020-01-30] MEDS: folic acid 1 mg Tablet PO (08:25)
[2020-01-30] MEDS: magnesium oxide 400 mg tablet PO (08:25)
[2020-01-30] MEDS: ferrous gluconate 324 mg Tablet PO (08:25)
[2020-01-30] MEDS: pantoprazole DR 40 mg Tablet PO (08:25)
[2020-01-30] MEDS: levETIRAcetam 500 mg Tablet PO (08:25)
[2020-01-30] MEDS: metoprolol tartrate 25 mg Tablet PO (08:26)
[2020-01-30] MEDS: budesonide 0.5 mg/2 mL Neb INHALATION (09:06)
--- NOTE | 2020-01-30 11:35 | PC.SOCIAL ---
IMM Updated Updated pt Pg 2 IMM. No questions voiced. Provided a copy to pt & left on pt's bedside table. Signed, dated, & timed copy in chart.
--- NOTE | 2020-01-31 14:13 | P.DS_ITS ---
Discharge Providers Date of Admission: 01/25/20 12:20 Date of Discharge: January 30, 2020 Attending Provider at Admission: Eliz Mina MD Attending Provider at Discharge: Manolo Park MD Primary Care Provider: Manolo Park MD Diagnoses at Discharge Discharge Diagnosis (1) Alcohol withdrawal delirium, acute, hypoactive: Status: Resolved (2) Iron deficiency anemia: (3) Thrombocytopenia: Problem details: Chronic (4) COPD (chronic obstructive pulmonary disease): Problem details: Stable (5) Acute alteration in mental status: Status: Resolved (6) Falls: Status: Resolved Reason for Visit Reason for Visit: GENERALIZED WEAKNESS/ AMS Hospital Course Discharge Summary: Patient was admitted to the hospital with obtundation secondary to alcohol intoxication. He had some withdrawals prior to coming in and evidence of seizures. Patient cleared up over the next several days. Received IV fluids. Overall was doing much better at the time of discharge she is mental state was back to normal. Labs had normalized. We were trying to get him into rehab but struggling with insurance to get this approved. Patient was strong enough to go home and was discharged home to the care of his brothers. We will continue to work on discharge to rehab as an outpatient. Patient is counseled extensively stop alcohol. He sincerely does want to try to quit. Physical Exam Urinary Catheter Management^: Alfonso: Cath Placed During This Visit: yes Reason for Continuing Indwelling Catheter: Accurate Measurement of Urinary Output in Critically Ill Patients Urinary Catheter Date of Insertion: 01/25/20 Urinary Catheter Time of Insertion: 12:45 Discharge Data Data Completed and Pending: Completed Studies During Hospitalization Category Date Time Status CT abdomen pelvis w con* [id number] Stat Cat Scan 01/25/20 10:[address] head wo con* 7 0450 Stat Cat Scan 01/25/20 10:22 Completed XR chest 1V yeyo ble [id number] Stat Exams 01/25/20 10:22 Completed XR elbow RT 2V 73 070 Routine Exams 01/28/20 09:11 Completed Vitals: Last Vital Signs Temp 98.5 F 01/30/20 14:32 Pulse 77 01/30/20 14:32 Resp 18 01/30/20 14:32 BP 94/61 01/30/20 14:32 Pulse Ox 92 01/30/20 14:32 Discharge Plan Discharge Patient Disposition: Home, Self-Care Condition: Stable Prescriptions: New levetiracetam 500 mg Tablet 500 mg PO BID Qty: 60 RF: 0 sulfamethoxazole-trimethoprim 800-160 mg Tablet 1 tab PO BID Qty: 10 RF: 0 budesonide 0.5 mg/2 mL Suspension For Nebulization 0.5 mg inhalation BID.RESPIRATORY Qty: 30 RF: 0 folic acid 1 mg Tablet 1 mg PO BID Qty: 60 RF: 0 metoprolol tartrate 25 mg Tablet 25 mg PO BID Qty: 60 RF: 0 ferrous gluconate 324 mg (37.5 mg iron) Tablet 324 mg PO BIDWM Qty: 60 RF: 0 Discharge Orders: Discharge Order (Routine); Ordered 01/30/20 Ordered By: Manolo Park Referrals: Manolo Park MD [Primary Care Provider] - 02/06/20 10:00 am Discharge Diet: Usual diet Discharge Activity: Resume usual activity Patient Instructions: Anemia, Gastrointestinal Bleeding (GEN) Activity Restrictions/Additional Instructions: -Resume normal diet activity ?call if increasing weakness, shortness of breath, chest pain, -Follow-up with Dr. Park in 1 week Discharge Date/Time: 01/30/20 14:33 Discharge Attestations Time Spent in Discharge Care*: less than 30 min Quality Metrics Clinical Quality Measures During this hospital stay, did patient experience: None Coding Level of Care Code Acute Laser/Electro Optics Technician for [facility] Diagnoses Alcohol withdrawal delirium, acute, hypoactive F10.231 Iron deficiency anemia D50.9 Thrombocytopenia D69.6 COPD (chronic obstructive pulmonary disease) J44.9 Acute alteration in mental status R41.82 Falls W19.XXXA
== END 2020-01-30 14:33 | disposition home or self-care (01) | DRG 897 ==
LOC: ER 11:58 → ICU 12:47 → MEDSURG 01-27 13:02
PROVIDERS: Family Medicine; Student in an Organized Health Care Education/Training Program; Admitting Provider Student in an Organized Health Care Education/Training Program; Family Provider Family Medicine; PCP Family Medicine; Visit Provider Family Medicine
DX: F10.229 Alcohol dependence with intoxication, unspecified (principal); I47.2 Ventricular tachycardia; M62.82 Rhabdomyolysis; E87.2 Acidosis; F10.239 Alcohol dependence with withdrawal, unspecified; D50.9 Iron deficiency anemia, unspecified; J44.9 Chronic obstructive pulmonary disease, unspecified; D69.6 Thrombocytopenia, unspecified; Z91.81 History of falling; Z90.5 Acquired absence of kidney; Z95.0 Presence of cardiac pacemaker; R33.8 Other retention of urine; N40.0 Benign prostatic hyperplasia without lower urinary tract symptoms; Z85.828 Personal history of other malignant neoplasm of skin; Z85.528 Personal history of other malignant neoplasm of kidney; I10 Essential (primary) hypertension; F17.210 Nicotine dependence, cigarettes, uncomplicated; G40.909 Epilepsy, unspecified, not intractable, without status epilepticus
CPT/HCPCS: 12345; 36415; 36416; 51702; 70450; 71045; 73070; 74177; 80051; 80053; 80306; 80307; 81001; 81003; 82009; 82140; 82436; 82550; 82607; 82746; 82810; 82962; 83036; 83540; 83550; 83605; 83690; 83735; 83880; 83986; 84100; 84133; 84145; 84146; 84153; 84300; 84439; 84443; 84481; 84484; 85025; 85610; 85730; 87040; 87449; 87641; 87804; 90471; 90714; 93005; 94640; 96360; 96361; 96372; 97110; 97116; 97161; 97165; 97530; 97535; 99283; 99284; C9113; J1644; J1953; J2405; J3411; J3490; J7030; J7040; J7626; Q9967

== ENCOUNTER → 2020-01-31 13:27 | Outpatient (BNVA) | payer MEDICARE, SELFPAY | PROVIDERS: Family Provider Family Medicine; PCP Family Medicine; Visit Provider Nurse Practitioner Family | DX: R05 Cough (principal) | CPT/HCPCS: 87635 ==

== ENCOUNTER 2020-03-02 09:38 | Observation (INO) | payer MEDICARE, SELFPAY ==
[2020-03-02 09:52] VITALS: BP 134/85; PULSE 96; RESP 18; TEMP 37.3; O2SAT 98; BMI 19.8
--- NOTE | 2020-03-02 09:56 | ECG_ITS ---
[facility] Test Date: 2020-03-02 Pat Name: Rashid Esposito Department: Room: 267 Gender: Male Ep Technologist: : 1950 Requested By: Manuel Hilliard Order Number: [id number] MD: Mckenna Bal M.D. Measurements Intervals Simpson Rate: 88 P: 75 RI: 199 QRS: -79 QRSD: 153 T: 66 QT: 416 QTc: 505 Interpretive Statements A sense V paced rhythm Compared to ECG 03/02/2020 11:23:01 No significant changes Electronically Signed On 03-03-2020 15:50:05 CDT by Mckenna Bal M.D. [id number]
--- NOTE | 2020-03-02 09:56 | CTR_ITS ---
PROCEDURE INFORMATION: Exam: CT Head Without Contrast Exam date and time: 03/02/2020 9:58 AM Age: 70 years old Clinical indication: Altered mental status/memory loss; Confusion or disorientation; Additional info: Syncopal episode TECHNIQUE: Imaging protocol: Computed tomography of the head without contrast. Radiation optimization: All CT scans at this facility use at least one of these dose optimization techniques: automated exposure control; mA and/or kV adjustment per patient size (includes targeted exams where dose is matched to clinical indication); or iterative reconstruction. COMPARISON: CT head wo con* [id number] 01/25/2020 11:01 AM RADIATION DOSE METRICS: Total DLP (mGy-cm): 812.37 FINDINGS: Brain: No hemorrhage. No edema, mass effect or midline shift. Periventricular and deep white matter hypodensities compatible with chronic microvascular ischemic changes. Bifrontal encephalomalacia. Ventricles: No ventriculomegaly. Bones/joints: No acute fracture. Sinuses: No acute sinusitis. Mastoid air cells: No mastoid effusion. Soft tissues: Unremarkable. CT/CT head wo con* [id number] IMPRESSION: No acute intracranial abnormality. Radiation Dose CTDIVOL = (mGy): DLP = 812.37 (mGy-cm)
--- NOTE | 2020-03-02 09:56 | XRR_ITS ---
PROCEDURE INFORMATION: Exam: XR Chest, 1 View Exam date and time: 03/02/2020 11:12 AM Age: 70 years old Clinical indication: Patient HX: PT came in after syncopeal episode, PT is confused, family said normal confusion but worse since episode this am; Additional info: Syncopal episode TECHNIQUE: Imaging protocol: XR of the chest Views: 1 view. COMPARISON: CR XR chest 1V portable [id number] 01/25/2020 10:21 AM FINDINGS: Tubes, catheters and devices: There is a pacemaker present over the left chest . Lungs: Low lung volumes. Patchy bibasilar atelectasis. Pleural space: No pleural effusion. No pneumothorax. Heart/Mediastinum: No cardiomegaly. Bones/joints: No acute fracture. XR/XR chest 1V portable [id number] IMPRESSION: No acute findings.
--- NOTE | 2020-03-02 09:58 | W.ED.SYNCOPE ---
HPI - Syncope General: Chief Complaint: Syncope Stated Complaint: LOC AT DINNER TABLE Time Seen by Provider: 03/02/20 09:49 History of Present Illness: Associated symptoms: Deny abdominal pain, chest pain, fever(s), headache(s) or nausea Review of Systems Const: Denies: fever(s), chills or fatigue Eyes: Denies: change in vision or eye discomfort ENMT: Denies: throat pain, odynophagia, nasal discharge or nasal congestion Card: Denies: chest pain, palpitations, edema, swelling of feet/ankles, dyspnea on exertion or orthopnea Resp: Denies: dyspnea, productive cough or non-productive cough GI: Denies: abdominal pain, nausea, vomiting, diarrhea, constipation or hematochezia : Denies: flank pain, difficulty urinating, dysuria or hematuria Musc: Denies: neck pain, back pain or extremity swelling Skin/Breast: Denies: rash or new lesions Neuro: Denies: headache(s), numbness in extremities or weakness in extremities PFSH ED PFSH: Medical History BPH (benign prostatic hyperplasia) COPD (chronic obstructive pulmonary disease) Stable History of basal cell cancer History of renal cell cancer Hypertension Iron deficiency anemia Thrombocytopenia Chronic Surgical History History of nephrectomy, left History of renal cell carcinoma. History of permanent cardiac pacemaker placement Social History Smoking and tobacco status: current every day smoker Alcohol intake: current Alcohol intake frequency: 3 or more drinks per day Alcohol type: hard liquor Lives independently: No Household members: family Housing: House Physical Exam Const: COMMON NORMALS: patient oriented x3 HENMT: COMMON NORMALS: normocephalic HEAD & SCALP: normocephalic MOUTH: Normal oral and palatal mucosa present THROAT: posterior oropharynx normal and uvula midline Neck/C-Spine: COMMON NORMALS: supple GENERAL: Yes normal visual inspection Resp: COMMON NORMALS: normal respiratory effort, No retractions, No use of accessory muscles and clear to auscultation bilaterally AUSCULTATION: clear to auscultation bilaterally Cardio: COMMON NORMALS: regular rate, regular rhythm, S1 normal heart sound present, S2 normal heart sound present, No gallops present (Cardio), No clicks present (Cardio), No murmurs present (Cardio) and Peripheral pulses 2+ throughout RATE: regular rate RHYTHM: regular rhythm HEART SOUNDS: S1 normal heart sound present and S2 normal heart sound present PERIPHERAL PULSES: Peripheral pulses 2+ throughout GI: COMMON NORMALS: Normal to inspection, nondistended, normoactive bowel sounds present, Soft to palpation, non-tender and no masses PALPATION: Yes Soft to palpation : COMMON NORMALS: Yes no CVA tenderness BLADDER/KIDNEY EXAM: Yes no CVA tenderness Back/Pelvis: COMMON NORMALS: no CVA tenderness Neuro: COMMON NORMALS: patient oriented x3, CN's II-XII intact bilaterally, moves all extremities, no focal motor deficits and no sensory deficits noted SENSORY EXAM: Yes extremities (intact) MOTOR EXAM: 5/5 motor strength present throughout Course Vital Signs: Vital signs: Vital Signs Temperature 99.1 F 03/02/20 09:52 Pulse Rate 96 03/02/20 09:52 Respiratory Rate 18 03/02/20 09:52 Blood Pressure 134/85 03/02/20 09:52 Pulse Oximetry 98 03/02/20 09:52 Discharge Plan Discharge Prescriptions: No Action levetiracetam 500 mg Tablet 500 mg PO BID Qty: 60 RF: 0 sulfamethoxazole-trimethoprim 800-160 mg Tablet 1 tab PO BID Qty: 10 RF: 0 budesonide 0.5 mg/2 mL Suspension For Nebulization 0.5 mg inhalation BID.RESPIRATORY Qty: 30 RF: 0 folic acid 1 mg Tablet 1 mg PO BID Qty: 60 RF: 0 metoprolol tartrate 25 mg Tablet 25 mg PO BID Qty: 60 RF: 0 ferrous gluconate 324 mg (37.5 mg iron) Tablet 324 mg PO BIDWM Qty: 60 RF: 0 Coding Level of Care Code ED Printing Plate Clerk for [facility]
--- NOTE | 2020-03-02 10:13 | W.ED.SYNCOPE ---
HPI - Syncope General: Chief Complaint: Syncope Stated Complaint: LOC AT DINNER TABLE Time Seen by Provider: 03/02/20 09:49 Source: patient Mode of arrival: ambulatory Limitations: no limitations History of Present Illness: HPI narrative: Mr. Mike is a nice 70-year-old male brought in by his family with a concern of a unresponsive spell. His grandson is present with him states that he went to sit at the kitchen table and then had an episode where he just stopped talking mid sentence. This was followed by being unresponsive but he did not lose postural tone or fall to the ground. The symptoms lasted for approximately 2 hours when the family decided to bring him to the hospital. In route to the hospital the symptoms have resolved and the patient is back to his normal mentation according to his grandson. The patient does not remember any of these episodes. He states he feels fine and has no complaints at this time. There was no seizure-like activity described and there was no postictal period. The patient has had similar episodes in the past according to his grandson but he has not elected to have anything done about them. The patient is noncompliant with his medical care. Associated symptoms: Deny abdominal pain, chest pain, fever(s), headache(s), lightheadedness, nausea or vertigo Review of Systems Const: Denies: fever(s), chills, body aches, fatigue, malaise or diaphoresis Eyes: Denies: change in vision, blurry vision, blind spots, photophobia, eye discharge or eye redness ENMT: Denies: throat pain, odynophagia, hoarseness, swelling of lips/tongue, oral sores, ear or mastoid pain, ear discharge, change in hearing or nasal discharge Card: Denies: chest pain, palpitations, irregular heart rhythm, edema, lightheadedness, syncope, pre-syncope, dyspnea on exertion or orthopnea Resp: Denies: dyspnea, productive cough, non-productive cough, wheezing, hemoptysis or chest congestion GI: Denies: abdominal pain, nausea, vomiting, hematemesis, coffee ground emesis, heartburn, diarrhea, constipation, GI cramping, hematochezia or melena : Denies: flank pain, dysuria, urinary frequency, urinary urgency or hematuria Musc: Denies: neck pain, back pain, extremity pain, extremity swelling, joint pain, joint swelling, joint redness, joint warmth or joint stiffness Skin/Breast: Denies: rash, pruritus, erythema, skin tenderness or jaundice Neuro: Reports: other (See HPI); Denies: headache(s), numbness in extremities, weakness in extremities, sensory changes, lack of coordination, difficulty walking, dizziness, vertigo, confusion, Slurred speech present or seizure-like activity Rubin/Lymph: Denies: easy bruising, easy bleeding, petechiae, purpura or enlarged lymph nodes All/Imm: Denies: urticaria, throat swelling, tongue swelling, facial swelling or acute wheezing PFSH ED PFSH: Medical History BPH (benign prostatic hyperplasia) COPD (chronic obstructive pulmonary disease) Stable History of basal cell cancer History of renal cell cancer Hypertension Iron deficiency anemia Thrombocytopenia Chronic Surgical History History of nephrectomy, left History of renal cell carcinoma. History of permanent cardiac pacemaker placement Social History Smoking and tobacco status: current every day smoker Alcohol intake: current Alcohol intake frequency: 3 or more drinks per day Alcohol type: hard liquor Lives independently: No Household members: family Housing: House Physical Exam Const: COMMON NORMALS: no acute distress, patient oriented x3, no limitations, healthy appearing and well nourished GENERAL APPEARANCE: cooperative, well kempt and well developed HENMT: COMMON NORMALS: normocephalic, atraumatic, external ears normal, EAC's normal and Normal external nose present HEAD & SCALP: normal to inspection, normocephalic and atraumatic FACE & SINUS: normal facial exam and face symmetric NOSE: Normal external nose present and Normal nares present EXTERNAL EAR: Yes external ears normal EXTERNAL AUDITORY CANAL: EAC's normal MOUTH: Normal oral and palatal mucosa present, lip normal and tongue normal Eye: COMMON NORMALS: Equal, round and reactive pupils present and conjunctivae normal GENERAL EYE: appearance normal, both eyes and all related structures ALIGNMENT: Yes alignment normal PERIORBITAL: periorbital findings normal EYELID: eyelids normal CONJUNCTIVA: Yes conjunctivae normal SCLERA: sclerae normal PUPIL: Yes Equal, round and reactive pupils present Neck/C-Spine: COMMON NORMALS: full ROM, no lymphadenopathy, supple, no meningeal signs and no JVD GENERAL: Yes normal visual inspection and Yes trachea midline Chest: COMMONS NORMALS: normal inspection of the chest and normal palpation of entire chest wall Resp: COMMON NORMALS: normal respiratory effort, No retractions and No use of accessory muscles EFFORT & INSPECTION: Yes able to speak in complete sentences and Yes symmetric chest movement AUSCULTATION: no crackles, no rales, no rhonchi and no wheezes Cardio: COMMON NORMALS: no JVD, regular rate, regular rhythm, S1 normal heart sound present and S2 normal heart sound present RATE: regular rate RHYTHM: regular rhythm HEART SOUNDS: S1 normal heart sound present, S2 normal heart sound present, no click, no gallops, no murmurs, no rubs and abnormal split S2 GI: COMMON NORMALS: Soft to palpation and No hepatosplenomegaly present PALPATION: Yes Soft to palpation, No Tenderness to palpation present (GI), No Guarding due to palpation present (GI), No Rigid due to palpation, Yes No hepatosplenomegaly present, No Hernia present, No Palpable mass present and No Pulsatile mass present : COMMON NORMALS: Yes no CVA tenderness BLADDER/KIDNEY EXAM: Yes no CVA tenderness Back/Pelvis: COMMON NORMALS: no CVA tenderness, thoracic and lumbar spine normal to inspection, no thoracic nor lumbar tenderness and thoraco-lumbar ROM normal Extremity: COMMON NORMALS: normal to inspection, full ROM, capillary refill normal, no joint enlargement, no clubbing, cyanosis or edema and no calf tenderness Neuro: COMMON NORMALS: patient oriented x3, CN's II-XII intact bilaterally, moves all extremities, no focal motor deficits and no sensory deficits noted MENINGEAL SIGNS: Yes no meningeal signs SPEECH: speech normal Psych: COMMON NORMALS: mental status grossly normal, Normal thought process present, cooperative, normal affect, speech normal and activity/motor behavior normal APPEARANCE: Yes well kempt SPEECH: Yes normal speech THOUGHT PROCESS: Normal thought process present Skin: COMMON NORMALS: no rashes or lesions noted, turgor normal, no jaundice, no petechiae and no mottling GENERAL SKIN EXAM: no rashes or lesions noted and turgor normal Course Vital Signs: Vital signs: Vital Signs Temperature 99.1 F 03/02/20 09:52 Pulse Rate 96 03/02/20 09:52 Respiratory Rate 18 03/02/20 09:52 Blood Pressure 134/85 03/02/20 09:52 Pulse Oximetry 98 03/02/20 09:52 MDM - Syncope MDM Narrative: Medical decision making narrative: The case was reviewed with Dr. Tate, she is agreeable to admission for further evaluation and care. Lab Data: Attestation: I reviewed the patient's lab results. Labs: Lab Results 03/02/20 03/02/20 03/02/20 Range/Units 10:24 10:24 10:24 WBC 5.6 (4.0-10.0) 10^3/ uL RBC 5.24 (4.1-5.3) 10^6/u L Hgb 13.7 (11.7-16.6) g/dL Hct 46.5 (42.0-52.0) % MCV 88.7 (80-94) fL MCH 26.1 L (28.0-34.0) pg MCHC 29.5 L (30.0-36.0) g/dL RDW 20.7 H (12.1-15.1) % Plt Count 129 L (130-400) 10^3/c mm MPV 10.8 H (7.4-10.4) fL Neut % (Auto) 72.8 % Lymph % (Auto) 14.0 % [place] % (Auto) 10.4 % Eos % (Auto) 1.8 % Baso % (Auto) 0.5 % Neut # (Auto) 4.04 (1.8-7.7) 10^3/u L Lymph # (Auto) 0.8 (0.8-4.8) 10^3/u L [place] # (Auto) 0.6 (0.2-0.9) 10^3/u L Eos # (Auto) 0.1 (0.0-0.8) 10^3/u L Baso # (Auto) 0.0 (0.0-0.1) 10^3/u L Nucleated RBC % (a uto) 0 % Nucleated RBCs # 0.0 /100WBC Sodium 136 (136-145) mmol/L Potassium 4.8 (3.5-5.1) mmol/L Chloride 101 (98-107) mmol/L Carbon Dioxide 23 (22-29) mmol/L Anion Gap 16.8 (5-19) BUN 15 (8-23) mg/dL Creatinine 1.1 (0.7-1.2) mg/dL GFR Calculation 66.4 L (90-130) mL/min Glucose 127 H (65-115) mg/dL Calculated Osmolal ity 280 L (285-295) mOsm/k g Calcium 9.3 (8.5-10.5) mg/dL Total Bilirubin 0.3 (0.15-1.2) mg/dL AST 22 (0-40) U/L ALT 9 (0-41) U/L Alkaline Phosphata se 92 (40-130) IU/L Troponin T Baselin e 56 H (0-15) ng/L Total Protein 6.2 L (6.6-8.7) g/dL Albumin 4.0 (3.5-5.2) g/dL Globulin 2.2 (1.3-4.6) g/dL Ethyl Alcohol < 10 (0-10) mg/dL Imaging Data^: CXR: My impression: No acute cardiopulmonary findings. EKG Data^: EKG 1: Attestation: I personally reviewed and interpreted this EKG as follows: EKG interpretation date: 03/02/20 EKG interpretation time: 10:32 Interpretation: Ventricular paced rhythm at 93 beats a minute, Discharge Plan Discharge Patient Disposition: Admitted As Inpatient Condition: Stable Prescriptions: No Action levetiracetam 500 mg Tablet 500 mg PO BID Qty: 60 RF: 0 budesonide 0.5 mg/2 mL Suspension For Nebulization 0.5 mg inhalation BID.RESPIRATORY Qty: 30 RF: 0 folic acid 1 mg Tablet 1 mg PO BID Qty: 60 RF: 0 metoprolol tartrate 25 mg Tablet 25 mg PO BID Qty: 60 RF: 0 ferrous gluconate 324 mg (37.5 mg iron) Tablet 324 mg PO BIDWM Qty: 60 RF: 0 Ultram 50 mg Tablet 50 mg PO QID PRN (Reason: Pain) RF: 0 Flomax 0.4 mg Capsule 0.4 mg PO BID RF: 0 Fungi Cure 1 applic topical BID RF: 0 Referrals: Manolo Park MD [Primary Care Provider] - Coding Level of Care Code ED Solidworks Designer for Chg Fwd Exam Comprehensive NIH stroke score NIHSS Level Of Consciousness - 1a: 0 Level Of Consciousness Questions - 1b: Both Correct Level Of Consciousness Commands - 1c: Both Correct Best Gaze - 2: Normal Visual Hart - 3: No Visual Loss Facial Palsy - 4: Normal Motor Arm Right - 5: No Drift Motor Arm Left - 5: No Drift Motor Leg Right - 6: No Drift Motor Leg Left - 6: No Drift Limb Ataxia - 7: Absent Sensory - 8: Normal Best Language - 9: No Aphasia Dysarthia - 10: Normal Extinction And Inattention - 11: 0 Score Total Score: 0
[2020-03-02 10:40] LABS: Basophils % 0.5 %; Eosinophils # 0.1 10^3/uL (0.0-0.8); Eosinophils % 1.8 %; Hematocrit 46.5 % (42.0-52.0); Hemoglobin 13.7 g/dL (11.7-16.6); Lymphocytes # 0.8 10^3/uL (0.8-4.8); Mean Corpuscular HGB Conc 29.5 g/dL (30.0-36.0); Mean Corpuscular Hemoglobin 26.1 pg (28.0-34.0); Mean Corpuscular Volume 88.7 fL (80-94); Mean Platelet Volume 10.8 fL (7.4-10.4); Monocytes # 0.6 10^3/uL (0.2-0.9); Monocytes % 10.4 %; Neutrophils # 4.04 10^3/uL (1.8-7.7); Neutrophils % 72.8 %; Nucleated Red Blood Cells % 0 %; Platelet Count 129 10^3/cmm (130-400); Red Blood Count 5.24 10^6/uL (4.1-5.3); Red Cell Distribution Width 20.7 % (12.1-15.1); White Blood Count 5.6 10^3/uL (4.0-10.0)
[2020-03-02 10:55] LABS: Alanine Aminotransferase 9 U/L (0-41); Alkaline Phosphatase 92 IU/L (40-130); Blood Urea Nitrogen 15 mg/dL (8-23); Calcium 9.3 mg/dL (8.5-10.5); Carbon Dioxide 23 mmol/L (22-29); Chloride 101 mmol/L (98-107); Globulin 2.2 g/dL (1.3-4.6); Glomerular Filtration Rate 66.4 mL/min (90-130); Glucose 127 mg/dL (65-115); Osmolality Calculated 280 mOsm/kg (285-295); Sodium 136 mmol/L (136-145); Total Bilirubin 0.3 mg/dL (0.15-1.2); Total Protein 6.2 g/dL (6.6-8.7)
[2020-03-02 10:58] LABS: Troponin(5th) Baseline 56 ng/L (0-15)
[2020-03-02 11:12] LABS: Alcohol Level < 10 mg/dL (0-10); Anion Gap 16.8 (5-19)
[2020-03-02 11:13] LABS: Aspartate Amino Transferase 22 U/L (0-40); Potassium 4.8 mmol/L (3.5-5.1)
--- NOTE | 2020-03-02 11:56 | ECG_ITS ---
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 Measurements Intervals [place] Rate: 90 P: 73 ME: 196 QRS: -78 QRSD: 148 T: 61 QT: 408 QTc: 500 Interpretive Statements ELECTRONIC VENTRICULAR PACEMAKER ABNORMAL RHYTHM ECG Compared to ECG 03/02/2020 10:32:55 No significant changes Electronically Signed On 03-03-2020 16:43:58 CDT by Mckenna Bal M.D. [email or web address] point [facility] adult care [email or web address] [facility].[email or web address]/store/OM/[id number]/[id number]
[2020-03-02 12:38] VITALS: BP 145/96; PULSE 75; RESP 14; O2SAT 96
[2020-03-02 12:39] VITALS: BP 146/90; PULSE 75; RESP 18; TEMP 36.4; O2SAT 98
--- NOTE | 2020-03-02 13:07 | PM.HP ---
Providers/Chief Complaint Admitting Physician: Payton Tate MD Primary Care Provider: Manolo Park MD Chief Complaint: Decreased responsiveness History of Present Illness Rashid Esposito is a 70 year old male with known hx of Chronic alcohol abuse, chronic smoker, HTN, s/p pacemaker, presents accompanied by nephew due to noted episode of decreased responsiveness earlier this morning. Nephew is at bedside and provides much of the history as patient is quite a poor historian. Unfortunately nephew was not present for the entire episode as he was asleep though he does recall awakening and finding patient with his head back, eyes rolling to the back of his head, unable to respond despite stimulation for an unknown period of time. He seemed to suddenly come to but seems somewhat disoriented at which point a nephew carried him to his car and brought him to the hospital. Family did not want to wait on ambulance as [place] and rug sample beveler would take some time to get to them. Patient has been living with his 2 brothers 1 of which is an alcoholic although patient was trying to cut down on his alcohol consumption due to the environment he has gradually been increasing his alcohol intake. Has been drinking 3-5 beers per day and has been drinking whiskey as well. Initially denied being a drinker but following repeated questioning admitted to last drink being yesterday afternoon. Per nephew patient has had a similar episode approximately a year ago which per review of documentation seems to have been attributed to hyponatremia with associated encephalopathy. Work-up at that time included echo and carotid ultrasound both of which are reported below. En route to the hospital patient seemed to gradually improved particularly in terms of mental status, and per family is at baseline. During his last admission, attempt was made to pursue SNF placement which patient declined at the last minute likely due to not been able to drink or smoke at facility. He has known gait instability and has a rolling walker at home though nephew states he is not consistently using this. There is question of medication compliance. Nephew states that patient has been quite depressed with some intermittent issues with SI in the past, denies this currently. Discussed CODE STATUS and DPOA, patient's sister is his DPOA, and per nephew, patient has stated that he would not want to be resuscitated. Review of Systems General: Reports: Other (obtained from family at bedside) Const: Reports: change in appetite (decreased appetite) and fatigue; Denies: fever(s) or chills Eyes: Denies: change in vision ENMT: Reports: dry mouth Card: Denies: chest pain, swelling of feet/ankles or lightheadedness Resp: Reports: dyspnea (labored breathing) GI: Denies: abdominal pain, nausea, vomiting, hematemesis or hematochezia : Denies: hematuria Musc: Denies: back pain Skin/Breast: Denies: rash Neuro: Reports: weakness in extremities and other (decreased responsiveness); Denies: numbness in extremities Psych: Denies: anxiety Medications/Allergies Home Medications Medication Instructions Recorded Confirmed Last Taken Type budesonide 0.5 mg INHALATION BID.RESPIRATORY 01/30/20 03/02/20 Unknown Rx #30 ml ferrous gluconate 324 mg PO BIDWM #60 tab 01/30/20 03/02/20 03/01/20 Rx folic acid 1 mg PO BID #60 tab 01/30/20 03/02/20 03/01/20 Rx levetiracetam 500 mg PO BID #60 tab 01/30/20 03/02/20 03/01/20 Rx metoprolol tartrate 25 mg PO BID #60 tab 01/30/20 03/02/20 03/01/20 Rx Fungi Cure 1 applic TOPICAL BID 03/02/20 03/02/20 Unknown History tamsulosin [Flomax] 0.4 mg PO BID 03/02/20 03/02/20 03/01/20 History tramadol [Ultram] 50 mg PO QID PRN 03/02/20 03/02/20 02/29/20 History Allergies Allergy/AdvReac Type Severity Reaction Status Date / Time No Known Allergies Allergy Verified 03/02/20 11:36 PFSH Acute PFSH: Medical History Alcohol abuse BPH (benign prostatic hyperplasia) COPD (chronic obstructive pulmonary disease) Stable History of basal cell cancer History of renal cell cancer Hypertension Iron deficiency anemia Thrombocytopenia Chronic Surgical History History of nephrectomy, left History of renal cell carcinoma. History of permanent cardiac pacemaker placement Family History Son Lung disease COPD Other Alcohol abuse Social History Smoking and tobacco status: current every day smoker cigarettes Packs smoked per day: 1 Alcohol intake: current Alcohol intake frequency: 3 or more drinks per day Alcohol type: beer and hard liquor Substance/Drug Use: never Lives independently: No Household members: family Housing: House Vitals/I&O/Wt Last Vital Signs Temp 99.1 F 03/02/20 09:52 Pulse 75 03/02/20 12:38 Resp 14 03/02/20 12:38 BP 145/96 03/02/20 12:38 Pulse Ox 96 03/02/20 12:38 Weight last 48 hrs Weight 58.967 kg Physical Exam Const: COMMON NORMALS: no acute distress and alert GENERAL APPEARANCE: cooperative, comfortable, disheveled and odor of alcohol detected NUTRITIONAL APPEARANCE: thin ORIENTATION/CONSCIOUSNESS: Yes awake HENMT: COMMON NORMALS: normocephalic and atraumatic HEAD & SCALP: normocephalic and atraumatic GENERAL EAR: hearing grossly impaired Laterality: diffuse MOUTH: moist mucous membranes abnormal Details: parched Eye: COMMON NORMALS: Equal, round and reactive pupils present, EOMs intact bilaterally and conjunctivae normal CONJUNCTIVA: Yes conjunctivae normal PUPIL: Yes Equal, round and reactive pupils present Neck/C-Spine: COMMON NORMALS: full ROM GENERAL: Yes normal visual inspection and Yes trachea midline Resp: COMMON NORMALS: normal respiratory effort, No retractions, No use of accessory muscles and clear to auscultation bilaterally EFFORT & INSPECTION: Yes able to speak in complete sentences, Yes symmetric chest movement and No tachypneic AUSCULTATION: clear to auscultation bilaterally Cardio: COMMON NORMALS: regular rate, regular rhythm, S1 normal heart sound present, S2 normal heart sound present and No murmurs present (Cardio) RATE: regular rate RHYTHM: regular rhythm HEART SOUNDS: S1 normal heart sound present and S2 normal heart sound present GI: COMMON NORMALS: Normal to inspection, nondistended, normoactive bowel sounds present, Soft to palpation and non-tender PALPATION: Yes Soft to palpation Extremity: COMMON NORMALS: normal to inspection, full ROM and no clubbing, cyanosis or edema; negative for no pedal edema Neuro: COMMON NORMALS: patient oriented x3, moves all extremities, no focal motor deficits and no sensory deficits noted SENSORIUM/ORIENTATION: Yes alert SPEECH: speech normal Psych: COMMON NORMALS: mental status grossly normal, Normal thought process present, cooperative, normal affect and speech normal SPEECH: Yes normal speech THOUGHT PROCESS: Normal thought process present Skin: COMMON NORMALS: no rashes or lesions noted, no jaundice, no petechiae and no mottling GENERAL SKIN EXAM: no rashes or lesions noted Data : 03/02/20 10:24 03/02/20 10:24 A&P Assessment and plan (1) Decreased responsiveness: -Reported episode of decreased responsiveness earlier this morning, witnessed by family, and described as inability to verbally communicate, noted eye rolling, disorientation and lack of awareness of environment and subsequent confusion. Prior episode approximately 1 year ago which was suspicious for seizure-like activity. Patient is on Keppra presumably due to this history. No noted incontinence, tongue biting, abnormal movements of his extremities during this episode -Per family present at bedside patient is back to his baseline; he is quite a limited historian though is alert and oriented at this time. -Has a known alcohol abuse history, last drink was yesterday evening, 3-5 beers per day -Evaluated for possible stroke, NIH score of 0 -Question of TIA which patient is at risk for given his history of alcohol abuse, chronic smoking, advanced age, hypertension -Head CT unremarkable, chest x-ray negative -Alcohol level negative -IVF hydration -noted elevated troponins with 2 hr delta of 11.5, paced rhythm on ECG, per my review, no changes in comparison to previous ones. Telemetry monitoring. Has been noted to have elevated troponins in the past -Echo (01/2019): EF=66%, mild LVH, no RWMA, mild , moderate MS, mild TR -carotid US (02/2019): 16-40% stenosis bilaterally -has pacemaker in place, interrogate device -no overt signs of infection; afebrile, no leukocytosis -check Mg, K-4.8 Status: Acute (2) History of renal cell cancer: -s/p L nephrectomy Status: Chronic (3) Hypertension: -monitor vital signs -resume oral antihypertensives Status: Chronic Qualifiers: Hypertension type: essential hypertension Qualified Code(s): I10 - Essential (primary) hypertension (4) BPH (benign prostatic hyperplasia): -resume flomax Status: Chronic Qualifiers: Lower urinary tract symptom presence: unspecified whether lower urinary tract symptoms present Qualified Code(s): N40.0 - Benign prostatic hyperplasia without lower urinary tract symptoms (5) Alcohol abuse: -Alcohol level negative -[facility] protocol -MVI, folic acid, thiamine Status: Chronic Additional A&P Information -Depression with prior SI; no SI today -Chronic normocytic anemia; suspect that this is multifactorial given underlying alcohol abuse, iron deficiency: baseline Hg is around 11-12 -Chronic intermittent thrombocytopenia likely secondary to EtOH abuse; baseline platelet count typically wnl, monitor for bleeding -Chronic smoker, 1 PPD, nicotine replacement therapy -regular diet with Ensure supplementation -GI ppx with PPI -DVT ppx with SCDs -strict fall precautions, PT evaluation -Dispo: Per discussion with family home may not be the best environment, there has been previous attempts to pursue SNF placement which patient declined due to inability to continue smoking and drinking at facility -Code status: Discussed with family at bedside, DNR/DNI Attestations Medical Necessity Statement*: [facility]'s hospital stay will be less than 2 midnights for workup of episode of decreased responsiveness including telemetry monitoring, monitoring for alcohol withdrawal. Time Spent in Patient Care: Greater than 35 minutes (>than 50% of time spent in counselling and/or direct pt care on unit). Coding Level of Care Code Acute Genetic Counsellor for Medg Fwd Diagnoses Decreased responsiveness R41.89 History of renal cell cancer Z85.528 Hypertension I10 Hypertension type: essential hypertension BPH (benign prostatic hyperplasia) N40.0 Lower urinary tract symptom presence: unspecified whether lower urinary tract symptoms present Alcohol abuse F10.10
[2020-03-02 13:16] LABS: Troponin 5 2HR 67.52 ng/L (0-15)
[2020-03-02 13:24] LABS: Troponin 5 2HR Delta 11.52 ABS# (0-10)
[2020-03-02] MEDS: dextrose 5%-sod chloride 0.45% 1,000 ML 100 ML IV (13:37)
[2020-03-02] MEDS: nicotine 21 mg Patch 1 PATCH TRANSDERMA (14:15)
--- NOTE | 2020-03-02 15:56 | ECG_ITS ---
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 Measurements Intervals [place] Rate: 93 P: 84 [place]: 179 QRS: -77 QRSD: 157 T: 57 QT: 418 QTc: 520 Interpretive Statements ELECTRONIC VENTRICULAR PACEMAKER ABNORMAL RHYTHM ECG Compared to ECG 01/25/2020 13:07:48 No significant changes Electronically Signed On 03-03-2020 16:45:05 CDT by Mckenna Bal M.D. [email or web address] [facility] care systemGenius Digitalchildren[facility].[id number]
[2020-03-02 16:00] VITALS: BP 142/87; PULSE 89; RESP 18; TEMP 37.3
[2020-03-02 16:56] LABS: Troponin 5 6HR 62.73 ng/L (0-15); Troponin 5 6HR Delta 6.73 ng/L (0-12)
[2020-03-02] MEDS: levETIRAcetam 500 mg Tablet PO (17:37)
[2020-03-02] MEDS: metoprolol tartrate 25 mg Tablet PO (17:37)
[2020-03-02 18:18] VITALS: PULSE 90; RESP 18; O2SAT 94
[2020-03-02 19:34] VITALS: BP 94/60; PULSE 70; RESP 17; TEMP 37; O2SAT 96
[2020-03-03] VITALS (7 sets, daily range): BP systolic 94–105; BP diastolic 60–70; PULSE 62–82; RESP 16–20; TEMP 36.4–37.1; O2SAT 93–96
[2020-03-03] MEDS: dextrose 5%-sod chloride 0.45% 1,000 ML 100 ML IV ×2 (00:09→11:09)
[2020-03-03 06:28] LABS: Basophils % 0.8 %; Eosinophils # 0.1 10^3/uL (0.0-0.8); Eosinophils % 1.9 %; Hematocrit 44.3 % (42.0-52.0); Hemoglobin 13.3 g/dL (11.7-16.6); Lymphocytes # 1.1 10^3/uL (0.8-4.8); Lymphocytes % 20.3 %; Mean Corpuscular Hemoglobin 26.9 pg (28.0-34.0); Mean Corpuscular Volume 89.5 fL (80-94); Mean Platelet Volume 10.6 fL (7.4-10.4); Monocytes # 0.7 10^3/uL (0.2-0.9); Monocytes % 12.7 %; Neutrophils # 3.36 10^3/uL (1.8-7.7); Neutrophils % 63.7 %; Nucleated Red Blood Cells % 0 %; Platelet Count 151 10^3/cmm (130-400); Red Blood Count 4.95 10^6/uL (4.1-5.3); Red Cell Distribution Width 21.2 % (12.1-15.1); White Blood Count 5.3 10^3/uL (4.0-10.0)
[2020-03-03 07:00] LABS: Alanine Aminotransferase 8 U/L (0-41); Albumin Level 3.8 g/dL (3.5-5.2); Alkaline Phosphatase 79 IU/L (40-130); Anion Gap 9.5 (5-19); Aspartate Amino Transferase 17 U/L (0-40); Blood Urea Nitrogen 10 mg/dL (8-23); Calcium 9.4 mg/dL (8.5-10.5); Carbon Dioxide 28 mmol/L (22-29); Chloride 105 mmol/L (98-107); Globulin 2.5 g/dL (1.3-4.6); Glomerular Filtration Rate 74.1 mL/min (90-130); Glucose 135 mg/dL (65-115); Osmolality Calculated 284 mOsm/kg (285-295); Potassium 4.5 mmol/L (3.5-5.1); Sodium 138 mmol/L (136-145); Total Bilirubin 0.4 mg/dL (0.15-1.2); Total Protein 6.3 g/dL (6.6-8.7)
[2020-03-03] MEDS: multivitamin therapeutic Tablet 1 TAB PO (08:42)
[2020-03-03] MEDS: thiamine 100 mg Tablet PO (08:42)
[2020-03-03] MEDS: metoprolol tartrate 25 mg Tablet PO (08:42)
[2020-03-03] MEDS: tamsulosin 0.4 mg Capsule PO (08:42)
[2020-03-03] MEDS: nicotine 21 mg Patch 1 PATCH TRANSDERMA (08:42)
[2020-03-03] MEDS: folic acid 1 mg Tablet PO (08:42)
[2020-03-03] MEDS: levETIRAcetam 500 mg Tablet PO (08:42)
--- NOTE | 2020-03-03 10:32 | PC.CHAP ---
Pastoral Care Encounter/Spiritual Assessment Type of Contact [] Declined export freight specialist visit [] Patient/Family/Request visit [] Outpatient visit [] Follow-up visit [] Physician referral [] Code/Alert [x] Routine visit [] Staff referral [] Actively dying [] Patient sleeping [] Family support [] [] Out of room [] Palliative care [] [] Receiving care in room [] Pre-surgical visit [] Trauma [] Long length of stay [] ICU visit [] Other: Relational/Emotional Strength [] Patient feels connected with others/family/visitors/staff [] Distress [] Loneliness/isolation [] Abandonment Spirituality of Patient [] Person of Argelia [] Attends [facility] of their [place] [] Believes in Prayer [] Reads Bible or Jain materials [] There are Spiritual issues to be addressed Ore Mixer Interventions [x] Prayer [x] Active listening [x] Non-anxious presence [x] Spiritual/emotional support [] Crisis/trauma care [] Spiritual counseling [] Bereavement support [] Provided bereavement packet [] Provided Bible/devotional materials [] Provided toy/stuffed animal, coloring book to patient or family member [] Provided Communion [] Anointing/[place] [] Salvation [x] Completed spiritual assessment [] Other: Impact on Illness or Injury [] Angry [] Fearful [] Anxious [] Often cries [] Exhaustion [] Unable to work [] Unable to attend bahai [] Unable to walk/stand [] Unable to read [] Unable to drive [] Unable to eat/drink [] Unable to sleep [] Unable to be with family [] Patient intubated [] Other: Summary Patient feeling better. Time spent with patient 10 min
--- NOTE | 2020-03-03 11:58 | PM.DCS ---
Discharge Providers Date of Admission: 03/02/20 12:16 Date of Discharge: March 03, 2020 Attending Provider at Admission: Payton Tate MD Attending Provider at Discharge: Manolo Park MD Primary Care Provider: Manolo Park MD Diagnoses at Discharge Discharge Diagnosis (1) Decreased responsiveness: Status: Acute (2) History of renal cell cancer: Status: Chronic (3) Hypertension: Status: Chronic Qualifiers: Hypertension type: essential hypertension Qualified Code(s): I10 - Essential (primary) hypertension (4) BPH (benign prostatic hyperplasia): Status: Chronic Qualifiers: Lower urinary tract symptom presence: unspecified whether lower urinary tract symptoms present Qualified Code(s): N40.0 - Benign prostatic hyperplasia without lower urinary tract symptoms (5) Alcohol abuse: Status: Chronic Reason for Visit Reason for Visit: Decreased responsiveness Hospital Course Discharge Summary: Patient moved to the hospital after being found unresponsive by his family. He has been increasing his alcohol consumption lately. He also admits that he is not been taking his seizure medication. Based off the symptoms that he described it sounds like he probably had a seizure at home that was not witnessed. I think they found him probably in a postictal state. This did clear quite a bit once he got to the emergency room. He had been admitted about a month ago with similar situation. We had tried getting placement in half-way at that time but was unable to. He is feeling back to normal this morning feels much better. He admits that he is having a problem with drinking and is going to continue to try to decrease his consumption. He is not interested in any other therapy or rehab. Patient will be discharged home in stable condition. He was encouraged to take his seizure medication. He will follow-up with me as needed in the clinic. Physical Exam Narrative: EXAM NARRATIVE: General: No acute distress, Alert. Well nourished. Heart: Regular rate and rhythm. No murmurs, rubs or gallops. Normal capillary refill. Lungs: Clear to auscultation. No wheezes, rhonchi or rales. Abdomen: Positive bowel sounds. Non-tender, non-distended. No hepatosplenomegaly. No gaurding. Extremities: No clubbing, cyanosis, or edema. Negative Lizz's Discharge Data Data Completed and Pending: Completed Studies During Hospitalization Category Date Time Status CT head wo con* [id number] Urgent Cat Scan 03/02/20 09:56 Completed XR chest 1V yeyo ble [id number] Stat Exams 03/02/20 09:56 Completed Labs from last 24 hours 03/03/20 03/03/20 03/02/20 06:03 06:03 16:25 WBC 5.3 RBC 4.95 Hgb 13.3 Hct 44.3 MCV 89.5 MCH 26.9 L MCHC 30.0 RDW 21.2 H Plt Count 151 MPV 10.6 H Neut % (Auto) 63.7 Lymph % (Auto) 20.3 [place] % (Auto) 12.7 Eos % (Auto) 1.9 Baso % (Auto) 0.8 Neut # (Auto) 3.36 Lymph # (Auto) 1.1 [place] # (Auto) 0.7 Eos # (Auto) 0.1 Baso # (Auto) 0.0 Nucleated RBC % (a uto) 0 Nucleated RBCs # 0.0 Sodium 138 Potassium 4.5 Chloride 105 Carbon Dioxide 28 Anion Gap 9.5 BUN 10 Creatinine 1.0 GFR Calculation 74.1 L Glucose 135 H Calculated Osmolal ity 284 L Calcium 9.4 Magnesium Total Bilirubin 0.4 AST 17 ALT 8 Alkaline Phosphata se 79 Troponin T 120 Min [place] Delta Troponin T Troponin T Hi Sens 6Hr 62.73 H Troponin T Hi Sens 6Hr [place] 6.73 Total Protein 6.3 L Albumin 3.8 Globulin 2.5 03/02/20 03/02/20 12:46 12:46 WBC RBC Hgb Hct MCV MCH MCHC RDW Plt Count MPV Neut % (Auto) Lymph % (Auto) [place] % (Auto) Eos % (Auto) Baso % (Auto) Neut # (Auto) Lymph # (Auto) [place] # (Auto) Eos # (Auto) Baso # (Auto) Nucleated RBC % (a uto) Nucleated RBCs # Sodium Potassium Chloride Carbon Dioxide Anion Gap BUN Creatinine GFR Calculation Glucose Calculated Osmolal ity Calcium Magnesium 2.0 Total Bilirubin AST ALT Alkaline Phosphata se Troponin T 120 Min [place] 67.52 H Delta Troponin T 11.52 H* Troponin T Hi Sens 6Hr Troponin T Hi Sens 6Hr Delta Total Protein Albumin Globulin Vitals: Last Vital Signs Temp 98.4 F 03/03/20 07:31 Pulse 79 03/03/20 08:04 Resp 18 03/03/20 08:04 BP 105/70 03/03/20 07:31 Pulse Ox 93 03/03/20 08:04 Discharge Plan Discharge Patient Disposition: Home Condition: Stable Prescriptions: Continued levetiracetam 500 mg Tablet 500 mg PO BID Qty: 60 RF: 0 budesonide 0.5 mg/2 mL Suspension For Nebulization 0.5 mg inhalation BID.RESPIRATORY Qty: 30 RF: 0 folic acid 1 mg Tablet 1 mg PO BID Qty: 60 RF: 0 metoprolol tartrate 25 mg Tablet 25 mg PO BID Qty: 60 RF: 0 ferrous gluconate 324 mg (37.5 mg iron) Tablet 324 mg PO BIDWM Qty: 60 RF: 0 Flomax 0.4 mg Capsule 0.4 mg PO BID RF: 0 Fungi Cure 1 applic topical BID RF: 0 Discontinued Ultram 50 mg Tablet 50 mg PO QID PRN (Reason: Pain) RF: 0 Discharge Orders: Discharge Order (Routine); Ordered 03/03/20 Ordered By: Manolo Park Referrals: Manolo Park MD [Primary Care Provider] - Discharge Diet: Usual diet Discharge Activity: Resume usual activity Activity Restrictions/Additional Instructions: -You definitely need to decrease your alcohol intake, try to avoid alcohol altogether -Call if worsening symptoms -Please be sure to take your seizure medication daily -Follow-up with Dr. Park only if needed Discharge Attestations Time Spent in Discharge Care*: less than 30 min Quality Metrics Clinical Quality Measures During this hospital stay, did patient experience: None Coding Level of Care Code Acute Scientific Diver for Chg Fwd Diagnoses Decreased responsiveness R41.89 History of renal cell cancer Z85.528 Hypertension I10 Hypertension type: essential hypertension BPH (benign prostatic hyperplasia) N40.0 Lower urinary tract symptom presence: unspecified whether lower urinary tract symptoms present Alcohol abuse F10.10
--- NOTE | 2020-03-05 12:19 | PC.RESP ---
Smoking Cessation and Pulmonary Rehab information sent to patient.
== END 2020-03-03 14:28 | disposition home or self-care (01) ==
LOC: ER 11:38 → MEDSURG 12:36
PROVIDERS: Emergency Medicine; Physician Assistant; Admitting Provider Family Medicine; PCP Family Medicine; Visit Provider Family Medicine
DX: R41.89 Other symptoms and signs involving cognitive functions and awareness (principal); Z85.528 Personal history of other malignant neoplasm of kidney; I10 Essential (primary) hypertension; N40.0 Benign prostatic hyperplasia without lower urinary tract symptoms; F10.10 Alcohol abuse, uncomplicated; F32.9 Major depressive disorder, single episode, unspecified; D64.9 Anemia, unspecified; D69.6 Thrombocytopenia, unspecified; F17.210 Nicotine dependence, cigarettes, uncomplicated; Z66 Do not resuscitate; R41.0 Disorientation, unspecified
CPT/HCPCS: 12345; 36415; 70450; 71045; 80053; 80307; 83735; 84484; 85025; 93005; 96360; 96361; 96372; 99283; 99285; G0378; J3411; J7799

== ENCOUNTER 2020-03-20 20:35 | Emergency (ER) | payer MEDICARE, SELFPAY ==
[2020-03-20 20:41] VITALS: BP 115/81; PULSE 95; RESP 18; TEMP 36.7; O2SAT 93; BMI 21.2
--- NOTE | 2020-03-20 20:41 | CTR_ITS ---
PROCEDURE INFORMATION: Exam: CT Head Without Contrast Exam date and time: 03/20/2020 8:51 PM Age: 70 years old Clinical indication: Condition or disease; Convulsions or seizures; Additional info: Seizure TECHNIQUE: Imaging protocol: Computed tomography of the head without contrast. Radiation optimization: All CT scans at this facility use at least one of these dose optimization techniques: automated exposure control; mA and/or kV adjustment per patient size (includes targeted exams where dose is matched to clinical indication); or iterative reconstruction. COMPARISON: CT head wo con* [id number] 03/02/2020 10:50 AM RADIATION DOSE METRICS: Total DLP (mGy-cm): 1999.91 FINDINGS: Brain: Moderate cortical volume loss. Stable encephalomalacia in the right frontoparietal region. Mild hypodensities in supratentorial periventricular and subcortical white matter. No intracranial hemorrhage. Ventricles: Normal. No ventriculomegaly. Bones/joints: Unremarkable. No acute fracture. Sinuses: Visualized sinuses are unremarkable. No fluid levels. Mastoid air cells: Visualized mastoid air cells are well aerated. Orbits: Bilateral cataract surgery. Soft tissues: Unremarkable. CT/CT head wo con* [id number] IMPRESSION: 1. No acute intracranial abnormality identified. 2. Stable encephalomalacia in the right frontoparietal region. 3. Mild microangiopathy. Radiation Dose CTDIVOL = (mGy): DLP = 2000.91 (mGy-cm)
--- NOTE | 2020-03-20 20:43 | W.ED.SEIZURE ---
HPI - Seizure General: Chief Complaint: Seizure Stated Complaint: ams. possible etoh Time Seen by Provider: 03/20/20 20:39 Source: EMS Mode of arrival: EMS Limitations: altered mental status History of Present Illness: HPI Narrative: 70-year-old male who has a long history of alcoholism along with seizures and is noncompliant on his seizure meds. Patient has been drinking today and per family had a seizure. Patient is currently postictal. He will awake to sternal rub but is somnolent. Unsure if he hit his head. Seizure History: No (1 years ago) Review of Systems General: Reports: ROS unobtainable due to mental status PFS ED PFSH: Medical History Alcohol abuse BPH (benign prostatic hyperplasia) COPD (chronic obstructive pulmonary disease) Stable History of basal cell cancer History of renal cell cancer Hypertension Iron deficiency anemia Thrombocytopenia Chronic Surgical History History of nephrectomy, left History of renal cell carcinoma. History of permanent cardiac pacemaker placement Family History Son Lung disease COPD Other Alcohol abuse Social History Smoking and tobacco status: current every day smoker cigarettes Packs smoked per day: 1 Alcohol intake: current Alcohol intake frequency: 3 or more drinks per day Alcohol type: beer and hard liquor Lives independently: No Household members: family Housing: House Physical Exam Const: COMMON NORMALS: negative for patient oriented x3 and negative for alert EXAM LIMITATIONS: altered mental status GENERAL APPEARANCE: disheveled HENMT: COMMON NORMALS: normocephalic and atraumatic HEAD & SCALP: normocephalic and atraumatic Eye: COMMON NORMALS: Equal, round and reactive pupils present and EOMs intact bilaterally PUPIL: Yes Equal, round and reactive pupils present Neck/C-Spine: COMMON NORMALS: full ROM and supple Chest: COMMONS NORMALS: normal inspection of the chest and normal palpation of entire chest wall Resp: COMMON NORMALS: normal respiratory effort, No retractions, No use of accessory muscles and clear to auscultation bilaterally AUSCULTATION: clear to auscultation bilaterally Cardio: COMMON NORMALS: regular rate, regular rhythm and No murmurs present (Cardio) RATE: regular rate RHYTHM: regular rhythm GI: COMMON NORMALS: Normal to inspection, nondistended, normoactive bowel sounds present, Soft to palpation, non-tender and no masses PALPATION: Yes Soft to palpation Extremity: COMMON NORMALS: normal to inspection and full ROM Neuro: COMMON NORMALS: negative for patient oriented x3 SENSORIUM/ORIENTATION: No alert Psych: APPEARANCE: Yes unkempt and Yes disheveled Skin: COMMON NORMALS: no rashes or lesions noted and no wounds GENERAL SKIN EXAM: no rashes or lesions noted Course Vital Signs: Vital signs: Vital Signs Temperature 98.1 F 03/20/20 20:41 Pulse Rate 91 03/21/20 02:00 Respiratory Rate 20 H 03/21/20 02:00 Blood Pressure 119/84 03/21/20 02:00 Pulse Oximetry 93 03/21/20 02:00 MDM - Seizure MDM Narrative: Medical decision making narrative: Patient presents here with seizure along with alcohol intoxication. Patient is now awake and alert and able ambulate and is at baseline. Patient's head CT here is negative. Patient is well-appearing and is stable for discharge. He is to follow-up with primary care doctor in 3 to 5 days return if worsening. Lab Data: Labs: Lab Results 03/20/20 03/20/20 03/21/20 Range/Units 20:20 20:20 01:40 WBC 5.7 (4.0-10.0) 10^3/ uL RBC 5.40 H (4.1-5.3) 10^6/u L Hgb 14.9 (11.7-16.6) g/dL Hct 48.2 (42.0-52.0) % MCV 89.3 (80-94) fL MCH 27.6 L (28.0-34.0) pg MCHC 30.9 (30.0-36.0) g/dL RDW 18.9 H (12.1-15.1) % Plt Count 166 (130-400) 10^3/c mm MPV 10.5 H (7.4-10.4) fL Neut % (Auto) 59.3 % Lymph % (Auto) 28.5 % [place] % (Auto) 8.1 % Eos % (Auto) 2.3 % Baso % (Auto) 0.9 % Neut # (Auto) 3.38 (1.8-7.7) 10^3/u L Lymph # (Auto) 1.6 (0.8-4.8) 10^3/u L [place] # (Auto) 0.5 (0.2-0.9) 10^3/u L Eos # (Auto) 0.1 (0.0-0.8) 10^3/u L Baso # (Auto) 0.1 (0.0-0.1) 10^3/u L Nucleated RBC % (a uto) 0 % Nucleated RBCs # 0.0 /100WBC Sodium 130 L (136-145) mmol/L Potassium 4.4 (3.5-5.1) mmol/L Chloride 94 L (98-107) mmol/L Carbon Dioxide 25 (22-29) mmol/L Anion Gap 15.4 (5-19) BUN 8 (8-23) mg/dL Creatinine 0.8 (0.7-1.2) mg/dL GFR Calculation 95.8 (90-130) mL/min Glucose 81 (65-115) mg/dL Calculated Osmolal ity 265 L (285-295) mOsm/k g Calcium 8.7 (8.5-10.5) mg/dL Total Bilirubin 0.3 (0.15-1.2) mg/dL AST 27 (0-40) U/L ALT 12 (0-41) U/L Alkaline Phosphata se 101 (40-130) IU/L Ammonia 15 L (16-60) umol/L Total Protein 7.4 (6.6-8.7) g/dL Albumin 4.3 (3.5-5.2) g/dL Globulin 3.1 (1.3-4.6) g/dL Salicylates < 0.3 L (3-10) mg/dL Acetaminophen < 5.0 L (10-30) ug/mL Ethyl Alcohol 212 H (0-10) mg/dL Imaging Data^: CT Head: Attestation: I personally reviewed and interpreted this imaging study as follows: Radiologist's impression: [address] [place] [address] CT Scan Report Signed Patient: Rashid Esposito Unit #: [id number] : [id number] Age/Sex: 70 / M ADM Date: 03/20/20 Loc: ER Room/Bed: Attending Dr: Ordering Provider/Ordering MD: Esha Heath MD Date of Service: 03/20/20 Procedure(s): CT head wo con* [id number] Accession Number(s): [id number] Report Number: [id number] PROCEDURE INFORMATION: Exam: CT Head Without Contrast Exam date and time: 03/20/2020 8:51 PM Age: 70 years old Clinical indication: Condition or disease; Convulsions or seizures; Additional info: Seizure TECHNIQUE: Imaging protocol: Computed tomography of the head without contrast. Radiation optimization: All CT scans at this facility use at least one of these dose optimization techniques: automated exposure control; mA and/or kV adjustment per patient size (includes targeted exams where dose is matched to clinical indication); or iterative reconstruction. COMPARISON: CT head wo con* [id number] 03/02/2020 10:50 AM RADIATION DOSE METRICS: Total DLP (mGy-cm): 2000.91 FINDINGS: Brain: Moderate cortical volume loss. Stable encephalomalacia in the right frontoparietal region. Mild hypodensities in supratentorial periventricular and subcortical white matter. No intracranial hemorrhage. Ventricles: Normal. No ventriculomegaly. Bones/joints: Unremarkable. No acute fracture. Sinuses: Visualized sinuses are unremarkable. No fluid levels. Mastoid air cells: Visualized mastoid air cells are well aerated. Orbits: Bilateral cataract surgery. Soft tissues: Unremarkable. CT/CT head wo con* [id number] IMPRESSION: 1. No acute intracranial abnormality identified. 2. Stable encephalomalacia in the right frontoparietal region. 3. Mild microangiopathy. Discharge Plan Discharge Patient Disposition: Home Clinical Impression: Generalized seizure Alcohol intoxication Qualifiers: Complication of substance-induced condition: uncomplicated Qualified Code(s): F10.920 - Alcohol use, unspecified with intoxication, uncomplicated Condition: Stable Prescriptions: No Action levetiracetam 500 mg Tablet 500 mg PO BID Qty: 60 RF: 0 budesonide 0.5 mg/2 mL Suspension For Nebulization 0.5 mg inhalation BID.RESPIRATORY Qty: 30 RF: 0 folic acid 1 mg Tablet 1 mg PO BID Qty: 60 RF: 0 metoprolol tartrate 25 mg Tablet 25 mg PO BID Qty: 60 RF: 0 ferrous gluconate 324 mg (37.5 mg iron) Tablet 324 mg PO BIDWM Qty: 60 RF: 0 Flomax 0.4 mg Capsule 0.4 mg PO BID RF: 0 Fungi Cure 1 applic topical BID RF: 0 Discharge Orders: Discharge Order (Routine); Ordered 03/21/20 Ordered By: Esha Heath Referrals: Manolo Park MD [Primary Care Provider] - 1-3 days Discharge Diet: Advance as tolerated Discharge Activity: Resume usual activity Patient Instructions: Recurrent Seizures Adult (ED) Coding Level of Care Code ED Apartment Community Manager for Desire Fwd Exam Comprehensive
[2020-03-20 21:05] LABS: Basophils # 0.1 10^3/uL (0.0-0.1); Basophils % 0.9 %; Eosinophils # 0.1 10^3/uL (0.0-0.8); Eosinophils % 2.3 %; Hematocrit 48.2 % (42.0-52.0); Hemoglobin 14.9 g/dL (11.7-16.6); Lymphocytes # 1.6 10^3/uL (0.8-4.8); Lymphocytes % 28.5 %; Mean Corpuscular HGB Conc 30.9 g/dL (30.0-36.0); Mean Corpuscular Hemoglobin 27.6 pg (28.0-34.0); Mean Corpuscular Volume 89.3 fL (80-94); Mean Platelet Volume 10.5 fL (7.4-10.4); Monocytes # 0.5 10^3/uL (0.2-0.9); Monocytes % 8.1 %; Neutrophils # 3.38 10^3/uL (1.8-7.7); Neutrophils % 59.3 %; Nucleated Red Blood Cells % 0 %; Platelet Count 166 10^3/cmm (130-400); Red Cell Distribution Width 18.9 % (12.1-15.1); White Blood Count 5.7 10^3/uL (4.0-10.0)
[2020-03-20 21:15] LABS: Alanine Aminotransferase 12 U/L (0-41); Albumin Level 4.3 g/dL (3.5-5.2); Alcohol Level 212 mg/dL (0-10); Alkaline Phosphatase 101 IU/L (40-130); Blood Urea Nitrogen 8 mg/dL (8-23); Calcium 8.7 mg/dL (8.5-10.5); Carbon Dioxide 25 mmol/L (22-29); Chloride 94 mmol/L (98-107); Globulin 3.1 g/dL (1.3-4.6); Glomerular Filtration Rate 95.8 mL/min (90-130); Glucose 81 mg/dL (65-115); Osmolality Calculated 265 mOsm/kg (285-295); Sodium 130 mmol/L (136-145); Total Bilirubin 0.3 mg/dL (0.15-1.2); Total Protein 7.4 g/dL (6.6-8.7)
[2020-03-20 21:18] LABS: Acetaminophen < 5.0 ug/mL (10-30); Salicylate < 0.3 mg/dL (3-10)
[2020-03-20 21:19] LABS: Anion Gap 15.4 (5-19); Aspartate Amino Transferase 27 U/L (0-40); Potassium 4.4 mmol/L (3.5-5.1)
--- NOTE | 2020-03-20 21:30 | PC.NURSE ---
ASSUMED CARE OF PT AT THIS TIME.
[2020-03-20 21:42] VITALS: BP 116/70; PULSE 43; RESP 24; O2SAT 94
[2020-03-20] MEDS: sodium chloride 0.9% 1,000 ML 999 ML IV (21:47)
[2020-03-20] MEDS: levETIRAcetam 750 MG in sodium chloride 0.9% (100 ml) 100 ML 430 MG IV (21:49)
[2020-03-20 22:00] VITALS: BP 110/73; PULSE 104; RESP 16; O2SAT 95
[2020-03-20 23:00] VITALS: BP 111/82; PULSE 107; RESP 20; O2SAT 96
[2020-03-21] VITALS (7 sets, daily range): BP systolic 111–133; BP diastolic 69–89; PULSE 66–106; RESP 16–22; O2SAT 93–98
--- NOTE | 2020-03-21 00:22 | PC.NURSE ---
PT REMAINS SLEEPING IN ROOM. PT RESPONSIVENESS HAS NOT CHANGED SINCE HIS ARRIVAL TO ED. DR DUNLAP NOTIFIED OF STATUS. ORDERED TO CONT TO MONITOR PT FOR NOW. PT'S VS REMAINS STABLE.
[2020-03-21] MEDS: naloxone 0.4 mg/ml SDV IVP (00:35)
[2020-03-21 02:08] LABS: Ammonia 15 umol/L (16-60)
--- NOTE | 2020-03-21 02:50 | PC.NURSE ---
PT IS AWAKE AND TALKING WITH NURSING STAFF AT THIS TIME. PT STATES, I HAD A REALLY NICE SLEEP. PT UP TO AMBULATE IN ROOM WITH SBA. PT STATED WHEN ASKED WHO TO CALL TO GIVE HIM A RIDE HOME, [facility]. THIS NURSE WILL ATTEMPT TO CALL FOR PT'S RIDE HOME AT DISCHARGE.
--- NOTE | 2020-03-21 02:55 | PC.NURSE ---
ATTEMPTED TO CALL FOR A RIDE HOME FOR PT. BOTH CLARENCE AND ALEX WERE CALLED AND NO ANSWERE. PT REQUESTED THAT WE CALL HIS BROTHERS FOR A RIDE HOME.
--- NOTE | 2020-03-21 06:16 | PC.NURSE ---
[id number] PT'S BROTHER CLARENCE ANSWERED WHEN CALLED. CLARENCE WAS NOTIFIED OF PT'S NEED FOR A RIDE HOME. CLARENCE WILL COME AND GET PT.
== END 2020-03-21 06:36 | disposition home or self-care (01) ==
PROVIDERS: Emergency Provider Emergency Medicine; PCP Family Medicine
DX: G40.89 Other seizures (principal); F10.920 Alcohol use, unspecified with intoxication, uncomplicated; J44.9 Chronic obstructive pulmonary disease, unspecified; Z85.528 Personal history of other malignant neoplasm of kidney; Z85.828 Personal history of other malignant neoplasm of skin; Z90.5 Acquired absence of kidney; Z95.0 Presence of cardiac pacemaker; F17.210 Nicotine dependence, cigarettes, uncomplicated
CPT/HCPCS: 12345; 70450; 80053; 80307; 82140; 85025; 96361; 96374; 96375; 99284; J1953; J2310; J3411; J7030

== ENCOUNTER 2021-10-11 03:33 | Emergency (ER) | payer MEDICARE, SELFPAY ==
[2021-10-11] VITALS (13 sets, daily range): BP systolic 94–142; BP diastolic 71–97; PULSE 105–121; RESP 22–24; TEMP 37.2; O2SAT 89–94; BMI 15.2
--- NOTE | 2021-10-11 03:39 | XRR_ITS ---
PROCEDURE INFORMATION: Exam: XR Lumbosacral Spine Exam date and time: 10/11/2021 4:00 AM Age: 71 years old Clinical indication: Injury or trauma; Blunt trauma (contusions or hematomas); Patient HX: HX of renal and basal cell CA C/O back/pelvic pain from fall this am TECHNIQUE: Imaging protocol: XR of the lumbosacral spine. Views: 2 or 3 views. COMPARISON: CT abdomen pelvis w con* [id number] 01/25/2020 11:07 AM FINDINGS: Bones/joints: Low density bone consistent with osteopenia/osteoporosis. Grade 2 anterior spondylolytic spondylolisthesis of L5 on S1. Soft tissues: Unremarkable. Vasculature: Calcification of the abdominal aorta and/or iliac arteries consistent with atherosclerotic vessel disease. XR/XR lumbar spine 2-3V* [id number] IMPRESSION: 1. Low density bone consistent with osteopenia/osteoporosis. 2. Grade 2 anterior spondylolytic spondylolisthesis of L5 on S1.
--- NOTE | 2021-10-11 03:39 | XRR_ITS ---
PROCEDURE INFORMATION: Exam: XR Thoracic Spine Exam date and time: 10/11/2021 4:00 AM Age: 71 years old Clinical indication: Injury or trauma; Blunt trauma (contusions or hematomas); Prior surgery; Surgery date: 6+ months; Surgery type: Pacer; Patient HX: HX of renal and basal cell CA C/O back/pelvic pain from fall this am TECHNIQUE: Imaging protocol: XR of the thoracic spine. Views: 3 views. COMPARISON: CR XR chest 1V portable [id number] 03/02/2020 11:02 AM FINDINGS: Tubes, catheters and devices: Stable left pacemaker. Bones/joints: Minimal levoscoliosis. Low density bone consistent with osteopenia/osteoporosis. 30% anterior wedging of upper thoracic vertebrae which could be acute. Correlation with CT may be helpful. Soft tissues: Unremarkable. XR/XR thoracic spine 3V* [id number] IMPRESSION: 1. Low density bone consistent with osteopenia/osteoporosis. 2. 30% anterior wedging of upper thoracic vertebrae which could be acute. Correlation with CT may be helpful.
--- NOTE | 2021-10-11 03:40 | XRR_ITS ---
PROCEDURE INFORMATION: Exam: XR Pelvis Exam date and time: 10/11/2021 4:00 AM Age: 71 years old Clinical indication: Injury or trauma; Blunt trauma (contusions or hematomas); Bilateral; Pelvic region; Patient HX: HX of renal and basal cell CA C/O back/pelvic pain from fall this am TECHNIQUE: Imaging protocol: XR pelvis. Views: 1 or 2 view. COMPARISON: CT abdomen pelvis w con* [id number] 01/25/2020 11:07 AM FINDINGS: Bones/joints: Unremarkable. No acute fracture. Soft tissues: Unremarkable. XR/XR pelvis 1-2V* [id number] IMPRESSION: 1. No acute findings. 2. If pain persists, CT may be helpful to rule out occult pathology if clinically indicated.
--- NOTE | 2021-10-11 03:40 | W.ED.FALL ---
Documented by User: Esha Heath MD 10/11/21 18:18 HPI - Fall General: Chief Complaint: Fall Stated Complaint: fall Time Seen by Provider: 10/11/21 03:39 Source: EMS Mode of arrival: EMS Limitations: no limitations History of Present Illness: 71-year-old male here by EMS with a fall roughly 45 minutes ago. Patient states that he has multiple falls daily for quite some time. He states that he just tripped and fell backwards. He states that he has some thoracic and low back pain and pelvic pain from the fall. Denies hitting his head denies any neck pain. He does have a history of chronic lung issues states he has been told that he has had lung mass but never followed up Associated symptoms-after fall: Denies abdominal pain, chest pain or headache(s) Review of Systems Const: Denies: fever(s), chills, body aches or change in appetite Eyes: Denies: blurry vision or eye discomfort ENMT: Denies: throat pain or dental pain Card: Denies: chest pain Resp: Denies: dyspnea GI: Denies: abdominal pain, nausea, vomiting or diarrhea : Denies: dysuria Musc: Reports: back pain Skin/Breast: Denies: rash Neuro: Denies: headache(s) Psych: Denies: depression Rubin/Lymph: Denies: easy bruising All/Imm: Denies: urticaria PFSH ED PFSH: Medical History (Updated 10/11/21 @ 08:30 by Lizzie Krishna MD) Alcohol abuse BPH (benign prostatic hyperplasia) COPD (chronic obstructive pulmonary disease) Stable History of basal cell cancer History of renal cell cancer Hypertension Iron deficiency anemia Thrombocytopenia Chronic Surgical History History of nephrectomy, left History of renal cell carcinoma. History of permanent cardiac pacemaker placement Family History Son Lung disease COPD Other Alcohol abuse Social History Smoking and tobacco status: current every day smoker cigarettes Packs smoked per day: 1 Alcohol intake: current Alcohol intake frequency: 3 or more drinks per day Alcohol type: beer and hard liquor Lives independently: No Household members: family Housing: House Physical Exam Const: COMMON NORMALS: no acute distress and patient oriented x3 GENERAL APPEARANCE: frail appearing HENMT: COMMON NORMALS: normocephalic and atraumatic HEAD & SCALP: normocephalic and atraumatic Eye: COMMON NORMALS: Equal, round and reactive pupils present and EOMs intact bilaterally PUPIL: Yes Equal, round and reactive pupils present Neck/C-Spine: COMMON NORMALS: full ROM and supple Chest: COMMONS NORMALS: normal inspection of the chest and normal palpation of entire chest wall Resp: COMMON NORMALS: normal respiratory effort, No retractions and No use of accessory muscles AUSCULTATION: rales Cardio: COMMON NORMALS: regular rate, regular rhythm and No murmurs present (Cardio) RATE: regular rate RHYTHM: regular rhythm GI: COMMON NORMALS: Normal to inspection, nondistended, normoactive bowel sounds present, Soft to palpation, non-tender and no masses PALPATION: Yes Soft to palpation Back/Pelvis: OTHER: Slight tenderness along thoracic and lumbar spine no obvious step-off Extremity: COMMON NORMALS: normal to inspection and full ROM Neuro: COMMON NORMALS: patient oriented x3, moves all extremities and no focal motor deficits Psych: COMMON NORMALS: mental status grossly normal, Normal thought process present and cooperative THOUGHT PROCESS: Normal thought process present Skin: COMMON NORMALS: no rashes or lesions noted and no wounds GENERAL SKIN EXAM: no rashes or lesions noted Course Vital Signs: Vital signs: Vital Signs Temperature 98.9 F 10/11/21 03:40 Pulse Rate 118 H 10/11/21 08:36 Respiratory Rate 24 H 10/11/21 07:30 Blood Pressure 105/82 10/11/21 08:36 Pulse Oximetry 90 10/11/21 08:36 MDM - Fall Medical Decision Making Patient turned over to Dr. Krishna. X-ray showed a likely very large right-sided lung mass and patient is very cachectic and sick appearing here. Patient is pending CT scan at this time Dr. Krishna to follow I received signout on this patient from Dr. Lemus at 0600. This is a 71-year-old male who has had multiple visits for falls and alcohol intoxication in the past. Today, he says he fell backwards onto the ground, complaining of low back and pelvic pain. No LOC. No acute fractures or other injuries on imaging. He has a history of a lung mass which he has not received any treatment for. CT today shows significant progression of the tumor, with local and distant metastasis. There is postobstructive pneumonia and atelectasis in the right lower lobe. I discussed all these findings with the patient, and let him know that his prognosis was very poor. He is agreeable to getting admitted for further treatment of his pneumonia and case management evaluation; he cannot be safely discharged home and will likely require placement. I called and spoke to the hospitalist inspector canned food reconditioning,Dr Lewis, who will come see the patient in the ED> Lab Data : 10/11/21 05:12 10/11/21 05:12 Radiology Impressions Lumbar Spine X-Ray 10/11/21 03:39 IMPRESSION: 1. Low density bone consistent with osteopenia/osteoporosis. 2. Grade 2 anterior spondylolytic spondylolisthesis of L5 on S1. Thoracic Spine X-Ray 10/11/21 03:39 IMPRESSION: 1. Low density bone consistent with osteopenia/osteoporosis. 2. 30% anterior wedging of upper thoracic vertebrae which could be acute. Correlation with CT may be helpful. Pelvis X-Ray 10/11/21 03:40 IMPRESSION: 1. No acute findings. 2. If pain persists, CT may be helpful to rule out occult pathology if clinically indicated. Chest X-Ray 10/11/21 03:45 IMPRESSION: Interval appearance of 8.0 x 7.7 cm mass in the right hilar and mid lung field area most consistent with lung cancer versus atelectasis pneumonia. CT chest with contrast may be helpful. Chest CT 10/11/21 05:00 IMPRESSION: 1. 1.7 cm obstructing mass in the distal bronchus intermedius and lower lobe bronchus. Mucous plug in the bronchus intermedius proximal to the mass. Axial series 2, images 30-36. 2. Postobstructive pneumonia and atelectasis in the right lower lobe. 3. 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 4. 5.2 cm metastasis in the medial segment left liver with 4.8 cm metastasis in the lateral segment left liver. 5. Previous right lateral rib resections consistent with previous right thoracotomy. 6. No pulmonary embolus or aortic dissection. Laboratory Results WBC 7.6 10^3/uL (4.0-10.0) 10/11/21 05:12 RBC 4.99 10^6/uL (4.1-5.3) 10/11/21 05:12 Hgb 12.6 g/dL (11.7-16.6) 10/11/21 05:12 Hct 42.5 % (42.0-52.0) 10/11/21 05:12 MCV 85.2 fl (80-94) 10/11/21 05:12 MCH 25.3 pg (28.0-34.0) L 10/11/21 05:12 MCHC 29.6 g/dL (30.0-36.0) L 10/11/21 05:12 RDW 16.7 % (12.1-15.1) H 10/11/21 05:12 Plt Count 149 10^3/cmm (130-400) 10/11/21 05:12 MPV 10.4 fL (7.4-10.4) 10/11/21 05:12 Neut % (Auto) 74.8 % 10/11/21 05:12 Lymph % (Auto) 7.5 % 10/11/21 05:12 [place] % (Auto) 15.8 % 10/11/21 05:12 Eos % (Auto) 0.1 % 10/11/21 05:12 Baso % (Auto) 0.5 % 10/11/21 05:12 Neut # (Auto) 5.71 10^3/uL (1.8-7.7) 10/11/21 05:12 Lymph # (Auto) 0.6 10^3/uL (0.8-4.8) L 10/11/21 05:12 [place] # (Auto) 1.2 10^3/uL (0.2-0.9) H 10/11/21 05:12 Eos # (Auto) 0.0 10^3/uL (0.0-0.8) 10/11/21 05:12 Baso # (Auto) 0.0 10^3/uL (0.0-0.1) 10/11/21 05:12 Nucleated RBC % (auto) 0 % 10/11/21 05:12 Nucleated RBCs # 0.0 /100WBC 10/11/21 05:12 Sodium 137 mmol/L (136-145) 10/11/21 05:12 Potassium 4.5 mmol/L (3.5-5.1) 10/11/21 05:12 Chloride 101 mmol/L (98-107) 10/11/21 05:12 Carbon Dioxide 23 mmol/L (22-29) 10/11/21 05:12 Anion Gap 17.5 (5-19) 10/11/21 05:12 BUN 16 mg/dL (8-23) 10/11/21 05:12 Creatinine 1.0 mg/dL (0.7-1.2) 10/11/21 05:12 GFR Calculation 73.9 mL/min (90-130) L 10/11/21 05:12 Glucose 97 mg/dL (65-115) 10/11/21 05:12 Calculated Osmolality 285 mOsm/kg (285-295) 10/11/21 05:12 Calcium 8.8 mg/dL (8.5-10.5) 10/11/21 05:12 Total Bilirubin 1.7 mg/dL (0.15-1.2) H 10/11/21 05:12 AST 69 U/L (0-40) H 10/11/21 05:12 ALT 41 U/L (0-41) 10/11/21 05:12 Alkaline Phosphatase 272 IU/L (40-130) H 10/11/21 05:12 Total Protein 6.4 g/dL (6.6-8.7) L 10/11/21 05:12 Albumin 3.3 g/dL (3.5-5.2) L 10/11/21 05:12 Globulin 3.1 g/dL (1.3-4.6) 10/11/21 05:12 SARS-CoV-2 Ag (Rapid) Negative (Negative) 10/11/21 07:06 Discharge Plan Discharge Patient Disposition: Admitted As Inpatient Clinical Impression: Pneumonia, Lung cancer, primary, with metastasis from lung to other site, Hypoxia, Fall at home, Poor physical health, No able caregiver in household Condition: Stable Sign Out Sign Out Data: Patient Sign Out occurred on 10/11/21 at 06:25. Patient's care was discussed, and care was transferred from to Lizzie Krishna MD. Coding Level of Care Code ED Implementation Specialist Payroll for Chg Fwd Exam Comprehensive Documented by User: Lizzie Krishna MD 10/11/21 09:58 HPI - Fall General: Chief Complaint: Fall Stated Complaint: fall Time Seen by Provider: 10/11/21 03:39 PFSH ED PFSH: Medical History (Updated 10/11/21 @ 08:30 by Lizzie Krishna MD) Alcohol abuse BPH (benign prostatic hyperplasia) COPD (chronic obstructive pulmonary disease) Stable History of basal cell cancer History of renal cell cancer Hypertension Iron deficiency anemia Thrombocytopenia Chronic Surgical History History of nephrectomy, left History of renal cell carcinoma. History of permanent cardiac pacemaker placement Family History Son Lung disease COPD Other Alcohol abuse Social History Smoking and tobacco status: current every day smoker cigarettes Packs smoked per day: 1 Alcohol intake: current Alcohol intake frequency: 3 or more drinks per day Alcohol type: beer and hard liquor Lives independently: No Household members: family Housing: House Physical Exam Resp: AUSCULTATION: rhonchi, diminished lung sounds and bronchial breath sounds Cardio: RATE: tachycardic Psych: APPEARANCE: Yes unkempt and Yes disheveled ATTITUDE: Yes calm MOOD & AFFECT: Yes apathetic THOUGHT PROCESS: Impoverished thought process present Skin: GENERAL SKIN EXAM: ecchymosis, turgor decreased and other (Scattered superficial skin tears and contusions.) Course Vital Signs: Vital signs: Vital Signs Temperature 98.9 F 10/11/21 03:40 Pulse Rate 118 H 10/11/21 08:36 Respiratory Rate 24 H 10/11/21 07:30 Blood Pressure 105/82 10/11/21 08:36 Pulse Oximetry 90 10/11/21 08:36 MDM - Fall Medical Decision Making I received signout on this patient from Dr. Lemus at 0600. This is a 71-year-old male who has had multiple visits for falls and alcohol intoxication in the past. Today, he says he fell backwards onto the ground, complaining of low back and pelvic pain. No LOC. No acute fractures or other injuries on imaging. He has a history of a lung mass which he has not received any treatment for. CT today shows significant progression of the tumor, with local and distant metastasis. There is postobstructive pneumonia and atelectasis in the right lower lobe. I discussed all these findings with the patient, and let him know that his prognosis was very poor. He is agreeable to getting admitted for further treatment of his pneumonia and case management evaluation; he cannot be safely discharged home and will likely require placement. I called and spoke to the hospitalist inspector canned food reconditioning,Dr Lewis, who will come see the patient in the ED> Medical Records I reviewed the patient's medical records. Lab Data : 10/11/21 05:12 10/11/21 05:12 Radiology Impressions Lumbar Spine X-Ray 10/11/21 03:39 IMPRESSION: 1. Low density bone consistent with osteopenia/osteoporosis. 2. Grade 2 anterior spondylolytic spondylolisthesis of L5 on S1. Thoracic Spine X-Ray 10/11/21 03:39 IMPRESSION: 1. Low density bone consistent with osteopenia/osteoporosis. 2. 30% anterior wedging of upper thoracic vertebrae which could be acute. Correlation with CT may be helpful. Pelvis X-Ray 10/11/21 03:40 IMPRESSION: 1. No acute findings. 2. If pain persists, CT may be helpful to rule out occult pathology if clinically indicated. Chest X-Ray 10/11/21 03:45 IMPRESSION: Interval appearance of 8.0 x 7.7 cm mass in the right hilar and mid lung field area most consistent with lung cancer versus atelectasis pneumonia. CT chest with contrast may be helpful. Chest CT 10/11/21 05:00
--- NOTE | 2021-10-11 03:45 | XRR_ITS ---
PROCEDURE INFORMATION: Exam: XR Chest Exam date and time: 10/11/2021 4:17 AM Age: 71 years old Clinical indication: Cough; Prior surgery; Surgery date: 6+ months; Surgery type: Pacer; Additional info: Fall TECHNIQUE: Imaging protocol: XR of the chest. Views: 1 view. COMPARISON: CR XR chest 1V portable [id number] 03/02/2020 11:02 AM FINDINGS: Tubes, catheters and devices: Stable left pacemaker. Lungs: Interval appearance of 8.0 x 7.7 cm mass in the right hilar and mid lung field area most consistent with lung cancer versus atelectasis pneumonia. CT chest with contrast may be helpful. Pleural spaces: Unremarkable. No pleural effusion. No pneumothorax. Heart/Mediastinum: Moderate intrathoracic hiatal hernia. Bones/joints: One or more healed right rib fractures. XR/XR chest 1V portable [id number] IMPRESSION: Interval appearance of 8.0 x 7.7 cm mass in the right hilar and mid lung field area most consistent with lung cancer versus atelectasis pneumonia. CT chest with contrast may be helpful.
--- NOTE | 2021-10-11 04:01 | PC.NURSE ---
Pt arrived to ER very odorous and unkempt. His clothing is very dirty with a strong odor of urine/feces. EMS reports that pt fell at home approx 1 hour [employer] W[employer]. Pt's brother present at time of fall and was unable to get pt up from the floor. EMS called for assistance.
--- NOTE | 2021-10-11 04:16 | PC.NURSE ---
Pt mild labored breathing, audible lungs wet with gurgle sounds with respirations. Lung auscultation diminished with rales. Spo2 90-91% on RA.
--- NOTE | 2021-10-11 05:00 | CTR_ITS ---
PROCEDURE INFORMATION: Exam: CT Chest With Contrast; Diagnostic Exam date and time: 10/11/2021 6:00 AM Age: 71 years old Clinical indication: Other: Mass; Prior surgery; Surgery type: Pacemaker TECHNIQUE: Imaging protocol: Diagnostic computed tomography of the chest with contrast. Radiation optimization: All CT scans at this facility use at least one of these dose optimization techniques: automated exposure control; mA and/or kV adjustment per patient size (includes targeted exams where dose is matched to clinical indication); or iterative reconstruction. Contrast material: VISI 320; Contrast volume: 75 ml; Contrast route: INTRAVENOUS (IV); COMPARISON: CT chest w con* [id number] 02/28/2019 12:44 PM RADIATION DOSE METRICS: Total DLP (mGy-cm): 371.5 FINDINGS: Lungs: 1.7 cm obstructing mass in the distal bronchus intermedius and lower lobe bronchus. Mucous plug in the bronchus intermedius proximal to the mass. Axial series 2, images 30-36. Postobstructive pneumonia and atelectasis in the right lower lobe. Hyperaerated lungs consistent with COPD . Pleural spaces: Unremarkable. No pneumothorax. No pleural effusion. Heart: Severe calcified coronary artery disease. 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 Pulmonary arteries: No pulmonary embolus or aortic dissection. Aorta: See Pulmonary arteries finding. Lymph nodes: Unremarkable. No enlarged lymph nodes. Diaphragm: Moderate intrathoracic hiatal hernia. Liver: 5.2 cm metastasis in the medial segment left liver with 4.8 cm metastasis in the lateral segment left liver. Bones/joints: 30% anterior compression fracture of T5 which appears chronic. Previous right lateral rib resections consistent with previous right thoracotomy. Soft tissues: Unremarkable. CT/CT chest w con* [id number] IMPRESSION: 1. 1.7 cm obstructing mass in the distal bronchus intermedius and lower lobe bronchus. Mucous plug in the bronchus intermedius proximal to the mass. Axial series 2, images 30-36. 2. Postobstructive pneumonia and atelectasis in the right lower lobe. 3. 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 4. 5.2 cm metastasis in the medial segment left liver with 4.8 cm metastasis in the lateral segment left liver. 5. Previous right lateral rib resections consistent with previous right thoracotomy. 6. No pulmonary embolus or aortic dissection.
[2021-10-11] MEDS: ondansetron 2 mg/ML SDV 2 mL 4 MG IVP (05:18)
[2021-10-11] MEDS: morphine 4 mg/mL SDV 1 mL IVP (05:21)
[2021-10-11 05:30] LABS: Basophils % 0.5 %; Eosinophils % 0.1 %; Hematocrit 42.5 % (42.0-52.0); Hemoglobin 12.6 g/dL (11.7-16.6); Lymphocytes # 0.6 10^3/uL (0.8-4.8); Lymphocytes % 7.5 %; Mean Corpuscular HGB Conc 29.6 g/dL (30.0-36.0); Mean Corpuscular Hemoglobin 25.3 pg (28.0-34.0); Mean Corpuscular Volume 85.2 fl (80-94); Mean Platelet Volume 10.4 fL (7.4-10.4); Monocytes # 1.2 10^3/uL (0.2-0.9); Monocytes % 15.8 %; Neutrophils # 5.71 10^3/uL (1.8-7.7); Neutrophils % 74.8 %; Nucleated Red Blood Cells % 0 %; Platelet Count 149 10^3/cmm (130-400); Red Blood Count 4.99 10^6/uL (4.1-5.3); Red Cell Distribution Width 16.7 % (12.1-15.1); White Blood Count 7.6 10^3/uL (4.0-10.0)
[2021-10-11 05:49] LABS: Alanine Aminotransferase 41 U/L (0-41); Albumin Level 3.3 g/dL (3.5-5.2); Alkaline Phosphatase 272 IU/L (40-130); Aspartate Amino Transferase 69 U/L (0-40); Blood Urea Nitrogen 16 mg/dL (8-23); Calcium 8.8 mg/dL (8.5-10.5); Carbon Dioxide 23 mmol/L (22-29); Chloride 101 mmol/L (98-107); Globulin 3.1 g/dL (1.3-4.6); Glomerular Filtration Rate 73.9 mL/min (90-130); Glucose 97 mg/dL (65-115); Osmolality Calculated 285 mOsm/kg (285-295); Sodium 137 mmol/L (136-145); Total Bilirubin 1.7 mg/dL (0.15-1.2); Total Protein 6.4 g/dL (6.6-8.7)
[2021-10-11 05:51] LABS: Anion Gap 17.5 (5-19); Potassium 4.5 mmol/L (3.5-5.1)
[2021-10-11] MEDS: iodixanol 320 mg/mL 100mL Btl IV (06:01)
[2021-10-11] MEDS: piperacillin-tazobactam 3.375 GM in sodium chloride 0.9% (plus) 50 ML IV (06:58)
[2021-10-11] MEDS: ipratropium-albuterol 3 mL Neb INHALATION (07:29)
[2021-10-11 07:51] LABS: SARS Covid-2 Antigen Negative (Negative)
--- NOTE | 2021-10-11 09:17 | PC.NURSE ---
Hospitalist at bedside 0827 with patient. Nurse at bedside 0840 - pt was alert and responsive. Vitals were taken at 0845 BP 116/78, HR 118, O2 90% on 3L. Pt was found at 0853 unresponsive faint carotid pulse felt, agonal respirations noted, and pt appeared cyanotic - charge nurse alerted. Physician Dr. Erendira MD at bedside 0854. TOD [address] Krishna
--- NOTE | 2021-10-11 09:31 | PC.NURSE ---
Notified Hanane with [facility] at 0909 that patient had at 0857. Body was released by them. Spoke with Staci Hall at [employer] with request to hold body till next of kin can be notifed. [facility] asked that we place head at [address] a couple drops of saline in the eyes. Gave [facility] contact information for the ER and patient nurse. Notified Jeannine HERRERA in ER that they will be contacted. [facility] staff at [phone] with orders to release body.
--- NOTE | 2021-10-11 10:52 | PC.NURSE ---
Received call at 1033 am from [facility] that patients family does not wish for patient to have [facility]. Patient is blind in one eye.
== END 2021-10-11 08:57 | disposition expired ==
PROVIDERS: Emergency Medicine; Emergency Provider Family Medicine; PCP Family Medicine
DX: J44.0 Chronic obstructive pulmonary disease with (acute) lower respiratory infection (principal); J18.9 Pneumonia, unspecified organism; C34.90 Malignant neoplasm of unspecified part of unspecified bronchus or lung; C79.9 Secondary malignant neoplasm of unspecified site; R09.02 Hypoxemia; Z85.89 Personal history of malignant neoplasm of other organs and systems; I10 Essential (primary) hypertension; Z90.5 Acquired absence of kidney; Z85.528 Personal history of other malignant neoplasm of kidney; Z95.0 Presence of cardiac pacemaker; F17.210 Nicotine dependence, cigarettes, uncomplicated; W01.0XXA Fall on same level from slipping, tripping and stumbling without subsequent striking against object, initial encounter
CPT/HCPCS: 71045; 71260; 72072; 72100; 72170; 80053; 85025; 87426; 94640; 96365; 96375; 99285; J2270; J2405; J2543; Q9967